=== PATIENT | male | born 1930 | race Caucasian/White ===

== ENCOUNTER 2016-09-13 15:47 | Inpatient (IN) | payer MEDICARE ==
[~2016-09-13] VITALS: Ht 193 cm; Wt 90.7 kg
[2016-09-13] VITALS (12 sets, daily range): BP systolic 115–137; BP diastolic 57–78; PULSE 80–97; RESP 18–20; TEMP 97.4–99; O2SAT 80–100
[~2016-09-13 15:47] MED LIST: ATOR40TA49 PO; NORC7.5T PO; PANT40IN3 PO; POTA20IN3 PO; RIVA10 PO; TAB-TAB PO; WALKER STANDARD
[2016-09-13] MEDS ORDERED: PANTOPRAZOLE INJ 80 MG in SODIUM CHLORIDE 0.9% INJ 35 ML IV ONE (16:15)
[2016-09-13] MEDS ORDERED: SODIUM CHLORIDE 0.9% FLUSH 10 ML FLUSH IVF PRN ×2 (16:15→18:30)
[2016-09-13 16:31] LABS: BLOOD GAS BASE EXCESS 1.7 mmol/L (-2-2); BLOOD GAS CARBOXYHEMOGLOBIN 2.7 % (0-4); BLOOD GAS HCO3 25 mmol/L (22-26); BLOOD GAS METHEMOGLOBIN 0.3 % (0-2); BLOOD GAS O2 HGB SATURATION 97 % (90-100); BLOOD GAS OXYGEN CONTENT 7.9 Vol % (12.0-20.0); BLOOD GAS PCO2 31 mmHg (38-42); BLOOD GAS PO2 117 mmHG (61-120); BLOOD GAS TOTAL HGB 5.6 G/DL (12.0-16.0); CRITICAL VALUE YES; OXYGEN DEVICE NASAL CANNULA; TEMP CORR TO 98.6
[2016-09-13 16:32] LABS: DRAW SITE LT RADIAL; LITER FLOW 2 L/M; NUMBER OF ARTERIAL PUNCTURES 1; STAT YES; ULNAR PULSE Y
--- NOTE | 2016-09-13 16:40 | RADRPT ---
EXAM DATE/TIME: 09/13/2016 16:29 [facility] COMPARISON: No previous studies available for comparison. INDICATIONS : Short of breath. MEDICAL HISTORY : Chronic obstructive pulmonary disease. SURGICAL HISTORY : CABG. Coronary artery stent. ENCOUNTER: Initial ACUITY: 1 day PAIN SCORE: 0/10 LOCATION: Bilateral chest FINDINGS: A single view of the chest demonstrates a mild patchy infiltrate in the right lower lung. Otherwise, the rest of the lungs are clear. There is mild prominence of pulmonary vasculature. Heart size is wit hin normal limits. There is evidence of previous cardiothoracic surgery.. CONCLUSION: Mild patchy infiltrate right lower lung. Mild pulmonary venous congestion. Bro Arrington MD on September 13, 2016 at 16:37 Board Certified Radiologist. This report was verified electronically.
--- NOTE | 2016-09-13 16:50 | PD ---
HPI Chief Complaint: GI Complaint Time Seen by Provider: 16:14 Travel History International Travel<30 days: No Contact w/Intl Traveler<30days: No Traveled to known affect area: No History of Present Illness HPI 85-year-old gentleman with history of COPD, who presents today with complaints of weakness and dizziness. The patient has a report of black tarry stools times several days. He denies any chest pain chest pressure. He does report shortness of breath however he has COPD and attributed it to that. Please note that when he came in via [place] he had a pale appearance that would be consistent with anemia. The patient does state that many many years ago, he did have an ulcer that was treated with Pepcid. He denies any abdominal pain. He denies any abdominal bloating. PFSH Past Medical History Hx Anticoagulant Therapy: Yes (ASPIRIN ) Asthma: Yes Atrial Fibrillation: Yes Cardiovascular Problems: Yes (CABG x3 2007; STENT x2 2012) High Cholesterol: Yes COPD: Yes Diminished Hearing: Yes ([place]) Respiratory: Yes (COPD) Tetanus Vaccination: Unknown Influenza Vaccination: Yes ?: Not Past Surgical History Cardiac Surgery: Yes (CABG x3; STENT x2) Thoracic Surgery: Yes (SPINAL FUSION) Social History Alcohol Use: No (FORMERLY OFTEN ) Tobacco Use: No Substance Use: No Allergies-Medications (Allergen,Severity, Reaction): Coded Allergies: No Known Allergies (Unverified , 01/15/16) Reported Meds & Prescriptions Reported Meds & Active Scripts Active Potassium Chloride ER 20 meq 20 Meq Tab 1 Tab PO DAILY 14 Days Multivitamin (Multivitamins) 1 Tab Tab 1 Tab PO DAILY 30 Days Lipitor 40 Mg Tab (Atorvastatin Calcium) 40 Mg Tab 40 Mg PO DAILY 30 Days Pantoprazole Sodium 40 Mg Tab 40 Mg PO DAILY 30 Days Walker Standard (Device) Device 1 Unit Xarelto 10 Mg Tab (Rivaroxaban) 10 Mg Tab 10 Mg PO DAILY Riva 7.5-325 mg (Hydrocodone-Acetaminophen 7.5-325 mg) 1 Tab 1 Tab PO Q4H PRN Review of Systems Except as stated in HPI: all other systems reviewed are Neg General / Constitutional: No: Fever, Chills Eyes: No: Blurred Vision HENT: Positive: Lightheadedness, No: Headaches Cardiovascular: No: Chest Pain or Discomfort, Palpitations Respiratory: Positive: Shortness of Breath, No: Cough, Wheezing (chronic from COPD) Gastrointestinal: Positive: Other (black tarry stools.), No: Nausea, Vomiting , Abdominal Pain Musculoskeletal: Positive: Weakness (generalized), No: Myalgias, Arthralgias, Edema, Pain Neurologic: Positive: Weakness (generalized), Dizziness, No: Headache, Change in Mentation Physical Exam Narrative GENERAL: Pale elderly ill appearing male in mild rest her discomfort SKIN: Focused skin assessment warm/dry. HEAD: Atraumatic. Normocephalic. EYES: No scleral icterus. No injection or drainage. ENT: No nasal bleeding or discharge. Mucous membranes pale and moist NECK: Trachea midline. Supple. CARDIOVASCULAR: Regular rate and rhythm. No murmur appreciated. RESPIRATORY: No accessory muscle use. Clear to auscultation. Breath sounds equal bilaterally. GASTROINTESTINAL: Abdomen soft, non-tender, nondistended. Hepatic and splenic margins not palpable. MUSCULOSKELETAL: No obvious deformities. No clubbing. No cyanosis. No edema. NEUROLOGICAL: Awake and alert. No obvious cranial nerve deficits. Motor grossly within normal limits. Normal speech. PSYCHIATRIC: Appropriate mood and affect; insight and judgment normal. Data Data Last Documented VS Vital Signs Date Time Temp Pulse Resp B/P Pulse Ox O2 Delivery O2 Flow Rate FiO2 09/13/16 16:28 96 Nasal Cannula 2.00 09/13/16 16:05 97.4 88 18 135/64 Orders Complete Blood Count With Diff (09/13/16 16:14) Comprehensive Metabolic Panel (09/13/16 16:14) Lipase (09/13/16 16:14) Prothrombin Time / Inr (Pt) (09/13/16 16:14) Act Partial Throm Time (Ptt) (09/13/16 16:14) Urinalysis - C+S If Indicated (09/13/16 16:14) Type And Screen (09/13/16 16:14) Red Blood Cells (Rbc) (09/13/16 16:14) Chest, Single Ap (09/13/16 16:14) Ecg Monitoring (09/13/16 16:14) Iv Access Insert/Monitor (09/13/16 16:14) Oximetry (09/13/16 16:14) Sodium Chloride 0.9% Flush (Ns Flush) (09/13/16 16:15) Pantoprazole Inj (Protonix Inj) (09/13/16 16:15) Electrocardiogram (09/13/16 16:14) Arterial Blood Gas (Abg) (09/13/16 16:14) Blood Product Administration .UPON TRANSFUSION (09/13/16 18:17) Sodium Chloride 0.9% Flush (Ns Flush) (09/13/16 18:30) Ckmb (Isoenzyme) Profile (09/13/16 18:27) Troponin I (09/13/16 18:27) Admit Order (Ed Use Only) (09/13/16 18:28) Labs Laboratory Tests Test 09/13/16 16:20 White Blood Count 11.7 TH/MM3 Red Blood Count 1.86 MIL/MM3 Hemoglobin 5.6 GM/DL Hematocrit 17.4 % Mean Corpuscular Volume 93.7 FL Mean Corpuscular Hemoglobin 29.9 PG Mean Corpuscular Hemoglobin 32.0 % Concent Red Cell Distribution Width 14.2 % Platelet Count 325 TH/MM3 Mean Platelet Volume 8.3 FL Neutrophils (%) (Auto) 79.4 % Lymphocytes (%) (Auto) 10.1 % Monocytes (%) (Auto) 8.2 % Eosinophils (%) (Auto) 2.2 % Basophils (%) (Auto) 0.1 % Neutrophils # (Auto) 9.2 TH/MM3 Lymphocytes # (Auto) 1.2 TH/MM3 Monocytes # (Auto) 1.0 TH/MM3 Eosinophils # (Auto) 0.3 TH/MM3 Basophils # (Auto) 0.0 TH/MM3 CBC Comment DIFF FINAL Differential Comment Prothrombin Time 13.2 SEC Prothromb Time International 1.2 RATIO Ratio Activated Partial 27.7 SEC Thromboplast Time Blood Gas Puncture Site LT RADIAL Blood Gas Patient Temperature 98.6 Blood Gas HCO3 25 mmol/L Blood Gas Base Excess 1.7 mmol/L Blood Gas Oxygen Saturation 97 % Arterial Blood pH 7.51 Arterial Blood Partial 31 mmHg Pressure CO2 Arterial Blood Partial 117 mmHG Pressure O2 Arterial Blood Oxygen Content 7.9 Vol % Arterial Blood 2.7 % Carboxyhemoglobin Arterial Blood Methemoglobin 0.3 % Blood Gas Hemoglobin 5.6 G/DL Oxygen Delivery Device NASAL CANNULA Blood Gas Liter Flow 2 L/M Sodium Level 137 MEQ/L Potassium Level 2.7 MEQ/L Chloride Level 100 MEQ/L Carbon Dioxide Level 27.6 MEQ/L Anion Gap 9 MEQ/L Blood Urea Nitrogen 28 MG/DL Creatinine 0.66 MG/DL Estimat Glomerular Filtration 115 ML/MIN Rate Random Glucose 93 MG/DL Calcium Level 8.0 MG/DL Total Bilirubin 0.6 MG/DL Aspartate Amino Transf 80 U/L (AST/SGOT) Alanine Aminotransferase 91 U/L (ALT/SGPT) Alkaline Phosphatase 94 U/L Total Protein 6.2 GM/DL Albumin 3.1 GM/DL Lipase 97 U/L Blood Type A POSITIVE Antibody Screen NEGATIVE Crossmatch Leukocyte-Reduced Red Blood Cells Blood Bank Comment MDM Medical Decision Making Medical Screen Exam Complete: Yes Emergency Medical Condition: Yes Differential Diagnosis GI bleed versus hepatitis versus metabolic derangement Narrative Course 85-year-old male with a history of COPD, presents today with complaints of weakness and shortness of breath. When the patient arrived he appeared pale. The patient has a hemoglobin of 5.6. He has heme positive stools. He is also noted to have a potassium of 2.7. Given all of these findings and what looks like ischemic changes in his V3 V5 leads, I've elected to admit him to the oil gauger service. Dr. Flower, on-call oil gauger, has good been gracious enough to come down to see the patient. Diagnosis Primary Impression: GI bleed Additional Impressions: Severe anemia Hypokalemia COPD (chronic obstructive pulmonary disease) Jose Callahan MD September 13, 2016 16:50
[2016-09-13 17:05] LABS: AUTOMATED NEUTROPHIL # 9.2 TH/MM3 (1.8-7.7); BASOPHIL % 0.1 % (0.0-2.0); EOSINOPHIL # 0.3 TH/MM3 (0-0.4); EOSINOPHIL % 2.2 % (0.0-4.0); LYMPH % 10.1 % (9.0-44.0); LYMPHOCYTE # 1.2 TH/MM3 (1.0-4.8); MEAN CELL VOLUME 93.7 FL (80.0-100.0); MEAN CORPUSCULAR HEMOGLOBIN 29.9 PG (27.0-34.0); MONO % 8.2 % (0.0-8.0); NEUT % 79.4 % (16.0-70.0); PLATELET COUNT 325 TH/MM3 (150-450); RED BLOOD COUNT 1.86 MIL/MM3 (4.50-5.90); RED CELL DISTRIBUTION WIDTH 14.2 % (11.6-17.2); WHITE BLOOD COUNT 11.7 TH/MM3 (4.0-11.0)
[2016-09-13 17:08] LABS: HEMO FLAGS DIFF FINAL
[2016-09-13 17:10] LABS: HEMATOCRIT 17.4 % (39.0-51.0)
[2016-09-13 17:20] LABS: APTT (PATIENT) 27.7 SEC (24.3-30.1); INTERNATIONAL NORMALIZED RATIO 1.2 RATIO; PROTHROMBIN TIME - PATIENT 13.2 SEC (9.8-11.6)
[2016-09-13 17:28] LABS: ALKALINE PHOSPHATASE 94 U/L (45-117); ALT (GPT) 91 U/L (12-78); ANION GAP 9 MEQ/L (5-15); AST (GOT) 80 U/L (15-37); BICARBONATE 27.6 MEQ/L (21.0-32.0); BLOOD UREA NITROGEN 28 MG/DL (7-18); CHLORIDE 100 MEQ/L (98-107); GLOMERULAR FILTRATION RATE 115 ML/MIN (>89); SODIUM (NA) 137 MEQ/L (136-145); TOTAL BILIRUBIN ADULT 0.6 MG/DL (0.2-1.0)
[2016-09-13 17:38] LABS: POTASSIUM 2.7 MEQ/L (3.5-5.1)
[2016-09-13 19:02] LABS: CREATINE KINASE 113 U/L (39-308)
[2016-09-13 19:05] LABS: BLOOD, URINE NEG (NEG); COMMENT (UR) CULT NOT INDICATED; CULTURE IF INDICATED CULT NOT INDICATED; GLUCOSE,URINE NEG (NEG); KETONE, URINE NEG (NEG); NITRITE,URINE NEG (NEG); URINE COLOR YELLOW (YELLW/STRAW)
[2016-09-13] MEDS ORDERED: METOCLOPRAMIDE HCL 10 MG/2 ML VIAL IV PRN (19:15)
[2016-09-13] MEDS ORDERED: SODIUM CHLORIDE 0.9% FLUSH 10 ML FLUSH PRN (19:15)
[2016-09-13] MEDS ORDERED: MORPHINE SULFATE 4 MG/ML INJ IV PRN (19:15)
[2016-09-13] MEDS ORDERED: CHLORHEXIDINE GLUCONATE 2 % 1 PACK (2 CLOTHS) TOP PRN (19:15)
[2016-09-13] MEDS ORDERED: MISCELLANEOUS NURSING INFORMATION XX SCH (19:15)
[2016-09-13] MEDS ORDERED: ACETAMINOPHEN 325 MG TAB PO PRN (19:15)
[2016-09-13] MEDS ORDERED: ASPI1TAB69 PO (19:23)
[2016-09-13] MEDS ORDERED: SERT-129 PO (19:23)
[2016-09-13] MEDS ORDERED: MULT1CHW70 (19:23)
[2016-09-13] MEDS ORDERED: ATOR40TA16 PO (19:23)
[2016-09-13] MEDS ORDERED: [UNRECOGNIZED DRUG - CODE] (19:23)
[2016-09-13] MEDS ORDERED: GLUC1CAP16 (19:23)
[2016-09-13] MEDS ORDERED: IPRA1POW8 (19:23)
[2016-09-13] MEDS ORDERED: GINK30CA (19:23)
[2016-09-13 19:31] LABS: CKMB 2.4 NG/ML (0.5-3.6)
[2016-09-13] MEDS: SODIUM CHLORIDE 0.9% FLUSH 10 ML FLUSH SCH (21:04)
[2016-09-13] MEDS: PANTOPRAZOLE SODIUM 40 MG VIAL IV SCH (21:04)
[2016-09-13] MEDS: SODIUM CHLOR 0.9% 1000 ML INJ 1,000 ML IV SCH (21:05)
[2016-09-14] VITALS (24 sets, daily range): BP systolic 118–139; BP diastolic 58–68; PULSE 82–96; RESP 18–38; TEMP 97.6–98.7; O2SAT 95–100
[2016-09-14 00:04] LABS: REVIEW FLAG FINAL
[2016-09-14 00:08] LABS: HEMATOCRIT 19.7 % (39.0-51.0)
--- NOTE | 2016-09-14 00:45 | HHI.HP ---
HPI Service Critical Care Medicine, this note is for service provided on September 13, 2016 Primary Care Physician Moisés Sampson M.D. Admission Diagnosis GI BLEED, Anemia, hypokalemia, Diagnosis: Travel History International Travel<30 Days: No Contact w/Intl Traveler <30 Da: No Traveled to Known Affected Are: No History of Present Illness 85-year-old gentleman with history of COPD, quit smoking more than 30 years ago now presents with complaints of weakness and dizziness. The patient reports of black tarry stools times several days. He denies any chest pain chest pressure. He does admits some shortness of breath however he has a history of COPD and attributed it to that. Per patient many years ago, he did have an ulcer that was treated with Pepcid. He denies any abdominal pain. He denies any abdominal bloating. Review of Systems Constitutional: COMPLAINS OF: Fatigue, Dizziness, DENIES: Diaphoretic episodes , Fever, Weight gain, Weight loss, Chills, Change in appetite, Night Sweats Endocrine: DENIES: Heat/cold intolerance, Polydipsia, Polyuria, Polyphagia Eyes: DENIES: Blurred vision, Diplopia, Eye inflammation, Eye pain, Vision loss , Photosensitivity, Double Vision Ears, nose, mouth, throat: DENIES: Tinnitus, Hearing loss, Vertigo, Nasal discharge, Oral lesions, Throat pain, Hoarseness, Ear Pain, Running Nose, Epistaxis, Sinus Pain, Toothache, Odynophagia Respiratory: DENIES: Apneas, Cough, Snoring, Wheezing, Hemoptysis, Sputum production, Shortness of breath Cardiovascular: DENIES: Chest pain, Palpitations, Syncope, Dyspnea on Exertion , PND, Lower Extremity Edema, Orthopnea, Claudication Gastrointestinal: DENIES: Abdominal pain, Black stools, Bloody stools, Constipation, Diarrhea, Nausea, Vomiting, Difficulty Swallowing, Anorexia Genitourinary: DENIES: Sexual dysfunction, Urinary frequency, Urinary incontinence, Urgency, Hematuria, Dysuria, Nocturia, Penile Discharge, Testicular Pain, Testicular Swelling Musculoskeletal: DENIES: Joint pain, Muscle aches, Stiffness, Joint Swelling, Back pain, Neck pain Integumentary: DENIES: Abnormal pigmentation, Nail changes, Pruritus, Rash Hematologic/lymphatic: DENIES: Bruising, Lymphadenopathy Immunologic/allergic: DENIES: Eczema, Urticaria Neurologic: DENIES: Abnormal gait, Headache, Localized weakness, Paresthesias, Seizures, Speech Problems, Tremor, Poor Balance Psychiatric: DENIES: Anxiety, Confusion, Mood changes, Depression, Hallucinations, Agitation, Suicidal Ideation, Homicidal Ideation, Delusions Past Family Social History Allergies: Coded Allergies: No Known Allergies (Unverified , 01/15/16) Past Medical History COPD CAD Past Surgical History Left Hip Surgery Reported Medications Reported Meds & Active Scripts Active Reported Multivitamin Adult (Multiple Vitamins W/ Minerals) 1 Chw Chw Ipratropium [place] 1 Pow Pow Psyllium Husk (Psyllium Hydrophilic Mucilloid) 100 % Pow Glucosamine Chondroitin (Gilfuhtgtmv-Bdxgogucygj-Vhk C-) 1 Cap Cap Ginkgo Biloba 30 Mg Cap Sertraline (Sertraline HCl) 100 Mg Tab 100 Mg PO DAILY Atorvastatin (Atorvastatin Calcium) 40 Mg Tab 40 Mg PO HS Aspirin 81 Mg Tabdr 81 Mg PO DAILY Active Ordered Medications Current Medications Medications (Trade) Dose Ordered Sig/[place] Route PRN Reason Start Time Stop Time Status Last Admin Dose Admin Sodium Chloride (NS 1000 ml Inj) 1,000 ml @ 125 mls/hr Q8H IV 09/13/16 19:00 09/13/16 21:05 Sodium Chloride (NS Flush) 2 ml UNSCH PRN .XX FLUSH AFTER USING IV ACCESS 09/13/16 19:15 Sodium Chloride (NS Flush) 2 ml BID .XX 09/13/16 21:00 09/13/16 21:04 Acetaminophen (Tylenol) 650 mg Q6H PRN PO PAIN 1-10 AND/OR FEVER >101F 09/13/16 19:15 09/13/16 21:06 Morphine Sulfate (Morphine Inj) 2 mg Q2H PRN IV PAIN SCALE 6 TO 10 09/13/16 19:15 Pantoprazole Sodium (Protonix Inj) 40 mg Q12H IV 09/13/16 20:00 09/13/16 21:04 Ondansetron HCl (Zofran Inj) 4 mg Q6H PRN IV NAUSEA OR VOMITING 09/13/16 19:15 Metoclopramide HCl (Reglan Inj) 10 mg Q6H PRN IV NAUSEA OR VOMITING 09/13/16 19:15 Temazepam (Restoril) 15 mg HS PRN PO INSOMNIA 09/13/16 19:15 Miscellaneous Information 1 [id number] XX 09/13/16 19:15 Chlorhexidine Gluconate (Chlorhexidine 2% Cloth) 3 pack Taper DAILY@04 TOP 09/14/16 04:00 09/10/17 03:59 Chlorhexidine Gluconate (Chlorhexidine 2% Cloth) 3 pack UNSCH PRN TOP HYGIENIC CARE 09/13/16 19:15 Family History Noncontributory Social History Quit smoking more than 30 years ago No history of alcohol or illicit drug abuse Physical Exam Vital Signs Vital Signs Date Time Temp Pulse Resp B/P Pulse Ox O2 Delivery O2 Flow Rate FiO2 09/13/16 22:06 22 09/13/16 22:00 99.0 84 18 132/60 100 09/13/16 21:00 98.4 86 20 137/65 100 09/13/16 20:02 98.6 87 20 119/57 98 09/13/16 20:00 86 09/13/16 19:40 99.0 95 18 115/78 99 09/13/16 19:00 98.9 80 18 130/64 100 Room Air 09/13/16 18:45 98.8 88 18 123/58 96 Room Air 09/13/16 16:28 96 Nasal Cannula 2.00 09/13/16 16:25 100 Room Air 09/13/16 16:05 97.4 88 18 135/64 80 Room Air 09/13/16 16:05 18 09/13/16 15:57 97.4 97 18 135/64 Laboratory Laboratory Tests Test 09/13/16 09/13/16 09/13/16 09/14/16 16:20 18:30 23:51 00:19 White Blood Count 11.7 Red Blood Count 1.86 Hemoglobin 5.6 6.9 Hematocrit 17.4 19.7 Mean Corpuscular Volume 93.7 Mean Corpuscular Hemoglobin 29.9 Mean Corpuscular Hemoglobin 32.0 Concent Red Cell Distribution Width 14.2 Platelet Count 325 Mean Platelet Volume 8.3 Neutrophils (%) (Auto) 79.4 Lymphocytes (%) (Auto) 10.1 Monocytes (%) (Auto) 8.2 Eosinophils (%) (Auto) 2.2 Basophils (%) (Auto) 0.1 Neutrophils # (Auto) 9.2 Lymphocytes # (Auto) 1.2 Monocytes # (Auto) 1.0 Eosinophils # (Auto) 0.3 Basophils # (Auto) 0.0 CBC Comment DIFF FINAL Differential Comment Prothrombin Time 13.2 Prothromb Time International 1.2 Ratio Activated Partial 27.7 Thromboplast Time Blood Gas Puncture Site LT RADIAL Blood Gas Patient Temperature 98.6 Blood Gas HCO3 25 Blood Gas Base Excess 1.7 Blood Gas Oxygen Saturation 97 Arterial Blood pH 7.51 Arterial Blood Partial 31 Pressure CO2 Arterial Blood Partial 117 Pressure O2 Arterial Blood Oxygen Content 7.9 Arterial Blood 2.7 Carboxyhemoglobin Arterial Blood Methemoglobin 0.3 Blood Gas Hemoglobin 5.6 Oxygen Delivery Device NASAL CANNULA Blood Gas Liter Flow 2 Sodium Level 137 Potassium Level 2.7 Chloride Level 100 Carbon Dioxide Level 27.6 Anion Gap 9 Blood Urea Nitrogen 28 Creatinine 0.66 Estimat Glomerular Filtration 115 Rate Random Glucose 93 Calcium Level 8.0 Total Bilirubin 0.6 Aspartate Amino Transf 80 (AST/SGOT) Alanine Aminotransferase 91 (ALT/SGPT) Alkaline Phosphatase 94 Total Creatine Kinase 113 Creatine Kinase MB 2.4 Troponin I 2.87 Total Protein 6.2 Albumin 3.1 Lipase 97 Blood Type A POSITIVE A POSITIVE Antibody Screen NEGATIVE Crossmatch Leukocyte-Reduced Leukocyte-Reduced Red Blood Red Blood Cells Cells Blood Bank Comment Urine Color YELLOW Urine Turbidity CLEAR Urine pH 6.0 Urine Specific [place] 1.023 Urine Protein TRACE Urine Glucose (UA) NEG Urine Ketones NEG Urine Occult Blood NEG Urine Nitrite NEG Urine Bilirubin NEG Urine Urobilinogen 2.0 Urine Leukocyte Esterase NEG Urine RBC LESS THAN 1 Urine WBC 1 Microscopic Urinalysis Comment CULT NOT INDICATED Result Diagram: 09/13/16 2351 09/13/16 1620 Imaging GENERAL: Well-nourished, well-developed patient, pale gentleman, in no acute distress SKIN: Warm and dry. HEAD: Normocephalic. EYES: No scleral icterus. No injection or drainage. NECK: Supple, trachea midline. No JVD or lymphadenopathy. CARDIOVASCULAR: Regular rate and rhythm without murmurs, gallops, or rubs. RESPIRATORY: Breath sounds equal bilaterally. No accessory muscle use. GASTROINTESTINAL: Abdomen soft, non-tender, nondistended. MUSCULOSKELETAL: No cyanosis, or edema. BACK: Nontender without obvious deformity. No CVA tenderness. EXTREMITIES: No clubbing cyanosis or edema Assessment and Plan Assessment and Plan Anemia - Post hemorrhagic - Most likely GI bleed - Admit to ICU - Transfuse PRBC to keep hemoglobin close to 8 - Serial H&H GI bleed - History of peptic ulcer - Protonix IV twice a day - GI consult Coronary artery disease - No history of chest pain - Nonspecific ST depressions on EKG - Probably Due to severe anemia - Monitor EKGs and troponins - No intervention indicated at this time DVT GI prophylaxis - Teds SCDs - No chemical DVT prophylaxis due to GI bleed - IV Protonix Critical Care: The total critical care time was 35 minutes. Time to perform other separately billable procedures was not included in the critical care time. Anselmo Flower MD September 14, 2016 00:44
[2016-09-14] MEDS: SODIUM CHLOR 0.9% 1000 ML INJ 1,000 ML IV SCH (03:39)
[2016-09-14] MEDS: CHLORHEXIDINE GLUCONATE 2 % 1 PACK (2 CLOTHS) TOP SCH (03:40)
[2016-09-14] MEDS ORDERED: DEXTROSE 50% IN WATER 50 ML VIAL(D50) IV PUSH PRN (08:00)
[2016-09-14] MEDS ORDERED: GLUCAGON 1 MG/ML VIAL OTHER PRN (08:00)
[2016-09-14] MEDS: INSULIN NovoLIN REGULAR SUPPLEMENTAL SCALE SQ SCH ×3 (08:00→20:00)
[2016-09-14] MEDS: PANTOPRAZOLE SODIUM 40 MG VIAL IV SCH ×2 (08:07→21:12)
[2016-09-14] MEDS: SODIUM CHLORIDE 0.9% FLUSH 10 ML FLUSH SCH ×2 (08:08→21:00)
[2016-09-14] MEDS: DEXT 5%-NACL 0.9% 1000 ML INJ 1,000 ML IV SCH ×2 (08:12→21:12)
[2016-09-14] MEDS ORDERED: POTASSIUM CHLOR 20 MEQ PREMIX 100 ML IV PRN (08:15)
[2016-09-14] MEDS ORDERED: POTASSIUM CHLORIDE 25 MEQ EFFERVESCENT TAB PO PRN (08:15)
[2016-09-14] MEDS ORDERED: MAGNESIUM SULFATE INJ 4 GM in SODIUM CHLORIDE 0.9% INJ 92 ML IV PRN (08:15)
[2016-09-14] MEDS ORDERED: MAGNESIUM OXIDE 400 MG TAB PO PRN (08:15)
[2016-09-14] MEDS ORDERED: POTASSIUM PHOSPHATE MONOBASIC 500 MG TAB PO PRN (08:15)
[2016-09-14] MEDS ORDERED: SODIUM PHOSPHATE INJ 30 MMOL in SODIUM CHLOR 0.9% 250 ML INJ 240 ML IV PRN (08:15)
[2016-09-14] MEDS ORDERED: POTASSIUM PHOSPHATE MONOBASIC 500 MG TAB PO/TUBE PRN (08:15)
[2016-09-14] MEDS ORDERED: POTASSIUM CHLOR 40 MEQ PREMIX 100 ML IV PRN ×2 (08:15)
[2016-09-14] MEDS ORDERED: MAGNESIUM SULFATE INJ 2 GM in SODIUM CHLORIDE 0.9% INJ 96 ML IV PRN (08:15)
[2016-09-14 08:52] LABS: AUTOMATED NEUTROPHIL # 10.3 TH/MM3 (1.8-7.7); BASOPHIL % 0.2 % (0.0-2.0); EOSINOPHIL # 0.1 TH/MM3 (0-0.4); EOSINOPHIL % 1.1 % (0.0-4.0); HEMATOCRIT 27.2 % (39.0-51.0); HEMO FLAGS DIFF FINAL; LYMPH % 5.3 % (9.0-44.0); LYMPHOCYTE # 0.6 TH/MM3 (1.0-4.8); MEAN CELL VOLUME 86.9 FL (80.0-100.0); MEAN CORPUSCULAR HGB CONC 34.5 % (32.0-36.0); MONO % 6.8 % (0.0-8.0); NEUT % 86.6 % (16.0-70.0); PLATELET COUNT 298 TH/MM3 (150-450); RED BLOOD COUNT 3.12 MIL/MM3 (4.50-5.90); RED CELL DISTRIBUTION WIDTH 14.6 % (11.6-17.2); WHITE BLOOD COUNT 11.9 TH/MM3 (4.0-11.0)
[2016-09-14 09:08] LABS: ANION GAP 7 MEQ/L (5-15); AST (GOT) 74 U/L (15-37); BICARBONATE 29.6 MEQ/L (21.0-32.0); BLOOD UREA NITROGEN 18 MG/DL (7-18); CHLORIDE 102 MEQ/L (98-107); GLOMERULAR FILTRATION RATE 133 ML/MIN (>89); MAGNESIUM 2.1 MG/DL (1.5-2.5); SODIUM (NA) 139 MEQ/L (136-145)
[2016-09-14 09:13] LABS: ALKALINE PHOSPHATASE 80 U/L (45-117); ALT (GPT) 96 U/L (12-78); TOTAL BILIRUBIN ADULT 1.7 MG/DL (0.2-1.0)
[2016-09-14] MEDS: POTASSIUM CHLOR 20 MEQ PREMIX 100 ML IV PRN ×4 (09:16→16:14)
[2016-09-14] MEDS: RESP: ALBUTEROL 2.5 MG/IPRATROPIUM 0.5 MG NEB (PRN) INH ×2 (09:27→16:35)
--- NOTE | 2016-09-14 10:42 | PD.CONS ---
GI Consult GI Consult SEE FORMAL gi CONSULTATION DICTATED TODAY ALSO ([id number]) Imp: 1.Melena 2. Anemia 3. abnormal LFT 4. Elevated troponin PLAN: 1. Cont PPI 2. awaiting U/S results 3. EGD (if negative--colonoscopy). awaiting cardiac clearance. Pt hesitant re procedures. Risk of procedures were discussed 4. Dr. Gipson will see pt 09/15 It was a pleasure seeing Jaydon Velazquez Thank you for this consult. Entered by: Augustine Jones MD September 14, 2016 10:42
[2016-09-14 11:10] LABS: HEMATOCRIT 28.2 % (39.0-51.0); REVIEW FLAG FINAL
--- NOTE | 2016-09-14 12:20 | RADRPT ---
EXAM DATE/TIME: 09/14/2016 10:20 [facility] COMPARISON: No previous studies available for comparison. INDICATIONS : Elevated labs. MEDICAL HISTORY : Hypercholesterolemia. COPD. Asthma. A-fib. SURGICAL HISTORY : CABG. Cardiac stents. Spinal fusion. ENCOUNTER: Initial ACUITY: 1 day PAIN SCORE: 2/10 LOCATION: Bilateral upper quadrant MEASUREMENTS: LIVER: 17.3 cm length COMMON DUCT: 2 mm RIGHT KIDNEY: 12.0 x 6.0 x 6.0 cm SPLEEN: 10.3 cm length FINDINGS: LIVER: Normal echotexture without focal lesion or ductal dilatation. The left lobe is not well-visualized du e to body habitus and overlying bowel gas. This COMMON DUCT: No intraluminal mass or stone visualized. GALLBLADDER: The gallbladder is mildly distended. There is no gallbladder wall thickening. There are multiple ston es evident within the dependent portion of the gallbladder. PANCREAS: The visualized portions are within normal limits. RIGHT KIDNEY: No hydronephrosis, stone or mass. SPLEEN: No focal lesion. CONCLUSION: 1. The gallbladder is distended with multiple stones. No gallbladder wall thickening or pericholecyst ic fluid is evident. 2. The pancreas and left lobe of the liver were not well visualized due to body habitus. 3. Small right pleural effusion. Johnson Betancourt MD on September 14, 2016 at 12:16 Board Certified Radiologist. This report was verified electronically.
--- NOTE | 2016-09-14 12:38 | MB ---
cc: AUGUSTINE COLE M.D. DATE OF CONSULTATION: 09/14/2016 DATE OF : 1930 REFERRING PHYSICIAN: Dr. Flower REASON FOR CONSULTATION: I have been asked to see the patient at the request of Dr. Flower for the evaluation of melena and severe anemia. HISTORY OF PRESENT ILLNESS: The patient is a pleasant 85-year white male who has seen the office. About a year ago he had an upper endoscopy for nausea and vomiting and heartburn-- revealed gastritis, intestinal metaplasia of the stomach. Hishey had aletred bowel habits but the altered bowel habits did resolved and we talked with colonoscopy but he declined it. At that time a gastritic emptying scan came back negative and a CT scan showed colonic diverticulosis, constipation, asymptomatic gallstones, degenerative disc disease and bronchiectasis- he followed up with primary care doctor in that regard, since that time the patient has not followed up with us. Apparently, he presented yesterday to the hospital very weak and tired and dizzy. He had black stools for several days. He denies any abdominal pain or hematochezia. He says he may have vomited food, but he does not recall any blood in the vomitus. He does take aspirin but no NSAIDs. He was taking the Pepcid but no proton pump inhibitors. PAST MEDICAL HISTORY: 1. Asthma. 2. Chronic obstructive pulmonary disease. 3. Atrial fibrillation. 4. Coronary artery disease, cardiac stenting and bypass surgery. 5. Dyslipidemia 6. Decreased hearing 7. Gastritis. 8. Sleep apnea. 9. Dementia. 10. Constipation. 11. Dyslipidemia. 12. Bronchiectasis. 13. Gastroesophageal reflux disease. 14. Nausea and vomiting. 15. Anxiety. 16. Hard of hearing. 17. Gallstones. 18. Chronic diverticulosis. 19. Degenerative disc disease. PAST SURGICAL HISTORY: 1. History of spinal fusion. 2. Cardiac stent. 3. Coronary artery bypass grafting times three. 4. Lumbar laminectomy. 5. Fractured femur. 6. Coronary angioplasty 7. Teeth removal. FAMILY HISTORY: Her family is not significant for colon cancer, colon polyps. HABITS: She does not currently smoke or drink. She did drink in the past. ALLERGIES DENIES ANY ALLERGIES TO ME. REVIEW OF SYSTEMS No weight loss. CARDIOPULMONARY: No chest pain, palpitations, shortness of breath at this time. GASTROINTESTINAL: Please see above. Otherwise unremarkable ten-point of systems, patient is hard of hearing. MEDICATION Outpatient 1. Potassium. 2. Multivitamin. 3. Lipitor. 4. Pepcid (there is some question about. 5. Pantoprazole but denied to me). 6. [place] 7. Xarelto (per ER records-patients denies this) INPATIENT MEDICATIONS 1. Potassium 2. Magnesium sulfate. 3. Magnesium. 4. Glucagon. 5. Insulin. 6. Pantoprazole drip. 7. Morphine. 8. Zofran. 9. Reglan. PHYSICAL EXAMINATION: VITAL SIGNS: Blood pressure is 124/64, pulse 82, respiratory rate 30. Temperature 98.2. IN GENERAL: Elderly white male who remembered me as I walked through the door. He is alert and oriented times three. HEAD, EYES, EARS, NOSE, AND THROAT: His pupils are react light. No obvious scleral icterus. oropharynx had dental caries no tongue deviation . Hearing was diminished. NECK: The neck was supple no thyroid lymphadenopathy. LUNGS: Clear to auscultation. HEART: Irregular rhythm, no murmurs heard. ABDOMEN: The abdomen is soft, nondistended, nontender, no organomegaly, no masses or ascites, her hernias. Ultrasound is being done at this time of the abdomen. EXTREMITIES: No clubbing, cyanosis or edema. NEUROLOGIC: Her grossly intact. No gross motor deficits. RECTUM: Rectal examination was not done. I did not assess the gait. DATA BASE: Prothrombin time of 13.2, INR 1.2, PTT 27.7. Potassium 2.7 yesterday, today it is 3.7, also yesterday his total bilirubin 0.6, SGOT 80, SGPT 91, alkaline phosphatase 94, today the total bilirubin is 1.7. SGOT 74, SGPT of 96, alk phos of 80. Troponin elevated to 2.85, 2.87 and as well as 2.53. CPKs 1113 which is normal, total protein 6.0, albumin 2.9, lipase of 97 is normal. BUN of 28, yesterday creatinine 0.66 today 18 and 0.58 respectively. Hemoglobin was 5.6 on admission, hematocrit of 17.4, MCV 92.7, White blood cell count 11,700. The platelet count 325,000. Next hemoglobin on record was 6.9, and 19.7 and after blood hemoglobin today is 9.4, hematocrit of 27.2. There is no black stools today. IMPRESSION 1. Melena - the patient was taking aspirin I suspect this is related to peptic ulcer. Cannot rule out malignancies or AVM anywhere throughout the gastrointestinal tract. Right sided lesions can present this way (colon) same way. 2. The patient has severe anemia, more then likely an acute blood loss anemia that is better now due to transfusions. He has not had any more black stools. 3. Possible nausea, vomiting, that is unconfirmed, there is no blood in the vomitus. 4. Increased LFTs - does have known gallstones. There is no tenderness at this time. 5. Elevated troponin level, cardiac evaluation has been ordered. RECOMMENDATIONS 1. Continue proton pump inhibitor. 2. Await ultrasound results. 3. The patient ultimately could use an upper endoscopy, and had negative colonoscopy. He is hesitant about a colonoscopy and he is actually hesitant about an upper endoscopy but is willing to think about it at this time. Either way the patient needs to be cleared first from the cardiac standpoint to have any of these procedures done. We did talk indications, risks, complications, benefits, limitations and alternatives-he understands the risks of bleeding, infection,perforation and the small possibly of . His is, has come in and I will talk to his in more detail also. The plan was considered to do an upper endoscopy first once cleared by cardiology. 4. Dr. Gipson to see the patient tomorrow to make further recommendations. Augustine Cole MD SP/rama /10:32 AM /12:33 PM PATRICIA
[2016-09-14 15:45] LABS: HEMATOCRIT 27.4 % (39.0-51.0); REVIEW FLAG FINAL
--- NOTE | 2016-09-14 15:58 | EKG ---
Date Performed: 09/13/2016 Time Performed: 16:18:25 PTAGE: 85 years EKG: Sinus rhythm NONSPECIFIC ST & T-WAVE ABNORMALITY Compared to the previous tracing nonspecific ST changes are slig htly more prominent BORDERLINE ECG PREVIOUS TRACING : 01/15/16 DOCTOR: Maged Reyes Interpretating Date/Time 09/14/2016 15:56:01
--- NOTE | 2016-09-14 16:00 | EKG ---
Date Performed: 09/14/2016 Time Performed: 05:57:40 PTAGE: 85 years EKG: Sinus rhythm with first degree AV block Extensive ST-T changes are nonspecific Compared to prior tracing no signi ficant change Abnormal ECG PREVIOUS TRACING : 09/13/16 DOCTOR: Maged Reyes Interpretating Date/Time 09/14/2016 15:58:44
--- NOTE | 2016-09-14 16:00 | EKG ---
Date Performed: 09/14/2016 Time Performed: 07:19:06 PTAGE: 85 years EKG: Sinus rhythm with first degree AV block VENTRICULAR PREMATURE COMPLEXES NONSPECIFIC ST & T-WAVE ABNORMALITY ABNOR MAL RHYTHM ECG Compared to the PREVIOUS TRACING rhythm now appears most likely sinus with first degree AV block and ect opy but there remains an element of baseline artifact. Would recommend an attempt at repeat ekg perha ps with a rhythm strip to exclude atrial fibrillation PREVIOUS TRACIN09/13/2016 20.42 DOCTOR: Maged Reyes Interpretating Date/Time 09/14/2016 15:59:57
--- NOTE | 2016-09-14 16:00 | EKG ---
Date Performed: 09/13/2016 Time Performed: 20:42:02 PTAGE: 85 years EKG: Sinus rhythm with first degree AV block and PACs NONSPECIFIC ST & T-WAVE ABNORMALITY Compared to the previous tra cing rhythm still appear to be sinus however the first degree AV block and PACs with some baseline ar tifact make it difficult to completely exclude atrial fibrillation. Would recommend repeat ekg. ABNOR MAL RHYTHM ECG PREVIOUS TRACING : 09/13/2016 16.18 DOCTOR: Maged Reyes Interpretating Date/Time 09/14/2016 15:58:13
--- NOTE | 2016-09-14 17:45 | MB ---
cc: LEE BOWER MD DATE OF CONSULTATION: 09/14/2016 REASON FOR CONSULTATION: Elevated troponin. HISTORY OF PRESENT ILLNESS Mr. Velazquez is a 85-year-old, patient of my partner Dr. Reyes. He does have her man with history of coronary artery bypass graft in 2007 with a left internal mammary artery to left anterior descending, saphenous vein graft to Obtuse marginal and Y to obtuse marginal 2. He subsequently underwent stenting in May 2012 with a drug-eluting stent to his distal left anterior descending and right coronary artery. The patient has been well from a cardiac perspective since then. He denies any cardiac complaints such as chest pain or shortness of breath. The patient presented with GI bleed and cardiology was requested to see him as his troponins were elevated. PAST MEDICAL HISTORY: Significant for Coronary artery bypass graft. Chronic obstructive pulmonary disease. Left hip surgery. Hyperlipidemia. OUTPATIENT MEDICATIONS medications included 1. Aspirin. 2. Atorvastatin. 3. Sertraline 4. Ginkgo biloba 5. Glucosamine 6. <<2:07>> bromide. 7. Multivitamin. SOCIAL HISTORY The patient is a former smoker. FAMILY HISTORY Noncontributory REVIEW OF SYSTEMS He is moved to with the patient does have some weakness, dizziness and black tarry stools, Other then this all 12 systems are negative. PHYSICAL EXAMINATION VITAL SIGNS: 88, 20, 128/64. IN GENERAL: He is a thin elderly man who is in no apparent distress. NECK: His neck is free from jugular venous distention. LUNGS: The lungs are bilaterally clear to auscultation. CARDIOVASCULAR SYSTEM: He had a normal S1, S2 and he has a 2/6 systolic murmur, no rubs or gallops are appreciated. ABDOMEN: The abdomen is soft. EXTREMITIES: The extremities are free from edema. LABORATORY FINDINGS: His initial hemoglobin was 5.6, currently it is 5.6. Currently it is 9.4. His initial sodium was 2.7 and currently it is 3.0. Serial troponins are 2487 and 2.53 with a total CK of 1138. EKG does show an intermittent atrial fibrillation. IMPRESSION 1. Non-ST elevation PR - this is almost certainly secondary PR with his profound anemia and hypokalemia. The patient does have an echo which is currently pending. He should be treated aggressively for his GI bleed. 2. History of CAD - the patient does appear reasonably stable at again echocardiogram is pending. At this point I would hold off on his aspirin and beta-blockade secondary to his gastrointestinal bleed. 3. GI bleed, it is very reasonable from a CV perspective to go forward with a Esophagogastroduodenoscopy and/or colonoscopy as appropriate for a GI. 4. I will be available on a p.r.n. basis and BNP seem should any further questions arise. Lee Bower M.D. MARIA GUADALUPE/rama /3:02 PM /4:25 PM
[2016-09-14 18:35] LABS: HEMATOCRIT 29.4 % (39.0-51.0); REVIEW FLAG FINAL
--- NOTE | 2016-09-14 19:03 | EC ---
Study Study Date:09/14/2016 STUDY CONCLUSIONS SUMMARY - Left ventricle: The cavity size was normal. Wall thickness was at the upper limits of normal. Systolic function was mildly to moderately reduced. The estimated ejection fraction was in the range of 40% to 45%. Diffuse hypokinesis. - Mitral valve: Mild regurgitation. - Left atrium: The atrium was mildly dilated. - Tricuspid valve: Mild regurgitation. If LV function is below 40, please consider prescribing an ACEI or ARB or document rationale for non-use. PROCEDURE DATA STUDY STATUS: Elective. Procedure: Transthoracic echocardiography. Image quality was good. Scanning was performed from the parasternal, apical, and subcostal acoustic windows. Study completion: The patient tolerated the procedure well. Transthoracic echocardiography. M-mode, complete 2D, complete spectral Doppler, and color Doppler. Patient status: Inpatient. CARDIAC ANATOMY LEFT VENTRICLE: The cavity size was normal. Wall thickness was at the upper limits of normal. Systolic function was mildly to moderately reduced. The estimated ejection fraction was in the range of 40% to 45%. Diffuse hypokinesis. AORTIC VALVE: Trileaflet; normal thickness leaflets. Doppler: Transvalvular velocity was within the normal range. There was no stenosis. No regurgitation. AORTA: Aortic root: The aortic root was normal in size. MITRAL VALVE: Structurally normal valve. Doppler: Transvalvular velocity was within the normal range. There was no evidence for stenosis. Mild regurgitation. LEFT ATRIUM: The atrium was mildly dilated. RIGHT VENTRICLE: The cavity size was normal. Wall thickness was normal. PULMONIC VALVE: Doppler: Transvalvular velocity was within the normal range. There was no evidence for stenosis. No regurgitation. TRICUSPID VALVE: Structurally normal valve. Doppler: Transvalvular velocity was within the normal range. Mild regurgitation. PULMONARY ARTERY: The main pulmonary artery was normal-sized. Systolic pressure was within the normal range. RIGHT ATRIUM: The atrium was normal in size. PERICARDIUM: There was no pericardial effusion. SYSTEMIC VEINS: Inferior vena cava: The vessel was normal in size. BASIC MEASUREMENTS ADULT NORMAL Left ventricle LV internal dimension, ED, chordal level, 50.5 mm 43-52 PLAX LV internal dimension, ES, chordal level, *42.9 mm 23-38 PLAX Fractional shortening, chordal level, PLAX *15 % >29 LV posterior wall thickness, ED 12.6 mm IVS/LVPW ratio, ED 0.89 <1.3 Ventricular septum Septal thickness, ED 11.2 mm Aortic valve Leaflet separation 17 mm 15-26 Right ventricle RV internal dimension, ED, PLAX 33.9 mm 19-38 BASIC MEASUREMENTS ADULT NORMAL Aortic valve Leaflet separation 17 mm 15-26 Aorta Root diameter, ED 36 mm 20-37 Left atrium Anterior-posterior dimension, ES *45 mm 19-40 LA/aortic root ratio 1.25 DOPPLER MEASUREMENTS ADULT NORMAL Mitral valve Peak E-wave velocity 70.1 cm/s Peak A-wave velocity 44.9 cm/s Peak E/A ratio 1.6 LEGEND: Mean values are shown as u=mean value. Asterisk (*) brower values outside specified normal range. Prepared and signed by Sarina Zaman [id number]
[2016-09-14] MEDS: TEMAZEPAM 15 MG CAP PO PRN (21:12)
[2016-09-14 22:55] LABS: HEMATOCRIT 27.6 % (39.0-51.0); REVIEW FLAG FINAL
[2016-09-15] VITALS (16 sets, daily range): BP systolic 115–152; BP diastolic 57–83; PULSE 81–106; RESP 25–48; TEMP 96.9–97.7; O2SAT 92–99
[2016-09-15] MEDS: INSULIN NovoLIN REGULAR SUPPLEMENTAL SCALE SQ SCH ×4 (02:00→20:00)
[2016-09-15] MEDS: CHLORHEXIDINE GLUCONATE 2 % 1 PACK (2 CLOTHS) TOP SCH ×2 (04:00→23:32)
[2016-09-15] MEDS: ONDANSETRON HCL 4 MG/2 ML VIAL IV PRN (05:04)
[2016-09-15 05:08] LABS: AUTOMATED NEUTROPHIL # 10.6 TH/MM3 (1.8-7.7); BASOPHIL % 0.3 % (0.0-2.0); EOSINOPHIL % 0.2 % (0.0-4.0); HEMATOCRIT 29.2 % (39.0-51.0); HEMO FLAGS DIFF FINAL; LYMPH % 4.5 % (9.0-44.0); LYMPHOCYTE # 0.5 TH/MM3 (1.0-4.8); MEAN CELL VOLUME 88.5 FL (80.0-100.0); MEAN CORPUSCULAR HGB CONC 32.8 % (32.0-36.0); MONO % 7.4 % (0.0-8.0); NEUT % 87.6 % (16.0-70.0); PLATELET COUNT 316 TH/MM3 (150-450); RED CELL DISTRIBUTION WIDTH 15.2 % (11.6-17.2); WHITE BLOOD COUNT 12.1 TH/MM3 (4.0-11.0)
[2016-09-15 05:15] LABS: ALKALINE PHOSPHATASE 82 U/L (45-117); ALT (GPT) 88 U/L (12-78); ANION GAP 10 MEQ/L (5-15); AST (GOT) 51 U/L (15-37); BICARBONATE 27.1 MEQ/L (21.0-32.0); BLOOD UREA NITROGEN 13 MG/DL (7-18); CHLORIDE 104 MEQ/L (98-107); GLOMERULAR FILTRATION RATE 123 ML/MIN (>89); POTASSIUM 3.6 MEQ/L (3.5-5.1); SODIUM (NA) 141 MEQ/L (136-145); TOTAL BILIRUBIN ADULT 1.4 MG/DL (0.2-1.0)
--- NOTE | 2016-09-15 06:29 | PD.CARD.PN ---
Subjective Subjective Remarks PT without CV complaints Objective Medications Current Medications Medications (Trade) Dose Ordered Sig/Manju Route Start Time Stop Time Status Last Admin (NS Flush) 2 ml UNSCH PRN .XX 09/13/16 19:15 (NS Flush) 2 ml BID .XX 09/13/16 21:00 09/14/16 08:08 (Tylenol) 650 mg Q6H PRN PO 09/13/16 19:15 09/13/16 21:06 (Morphine Inj) 2 mg Q2H PRN IV 09/13/16 19:15 (Protonix Inj) 40 mg Q12H IV 09/13/16 20:00 09/14/16 21:12 (Zofran Inj) 4 mg Q6H PRN IV 09/13/16 19:15 09/15/16 05:04 (Reglan Inj) 10 mg Q6H PRN IV 09/13/16 19:15 (Restoril) 15 mg HS PRN PO 09/13/16 19:15 09/14/16 21:12 Miscellaneous Information 1 [id number] XX 09/13/16 19:15 (Chlorhexidine 2% Cloth) 3 pack Taper DAILY@04 TOP 09/14/16 04:00 09/10/17 03:59 09/15/16 04:00 Chlorhexidine Gluconate 3 pack 3 pack UNSCH PRN TOP 09/13/16 19:15 (D5W-NS 1000 ml Inj) 1,000 ml @ 75 mls/hr [id number] IV 09/14/16 08:00 09/14/16 21:12 (D50w (Vial) Inj) 50 ml UNSCH PRN IV PUSH 09/14/16 08:00 (Glucagon Inj) 1 mg UNSCH PRN OTHER 09/14/16 08:00 Insulin Human Regular 1 1 Q6H SQ 09/14/16 08:00 Potassium Chloride 100 ml @ 50 mls/hr Q2H PRN IV 09/14/16 08:15 (KCl 20 Meq Premix Inj) 100 ml @ 50 mls/hr Q2H PRN IV 09/14/16 08:15 09/14/16 16:14 Potassium Bicarb/ Potassium Chloride 50 meq 50 meq UNSCH PRN PO 09/14/16 08:15 Potassium Chloride 100 ml @ 25 mls/hr UNSCH PRN IV 09/14/16 08:15 Potassium Chloride 100 ml @ 50 mls/hr Q2H PRN IV 09/14/16 08:15 (Magnesium Sulfate Inj/NS Inj) 100 ml @ 50 mls/hr UNSCH PRN IV 09/14/16 08:15 Magnesium Oxide 800 mg 800 mg UNSCH PRN PO 09/14/16 08:15 (Magnesium Sulfate Inj/NS Inj) 100 ml @ 50 mls/hr UNSCH PRN IV 09/14/16 08:15 Potassium Phosphate 2000 mg 2,000 mg Q4H PRN PO 09/14/16 08:15 (Sodium Phosphate Inj/NS 250 ml Inj) 250 ml @ 42 mls/hr UNSCH PRN IV 09/14/16 08:15 (K-Phos) 2,000 mg UNSCH PRN PO/TUBE 09/14/16 08:15 Vital Signs / I&O Vital Signs Date Time Temp Pulse Resp B/P Pulse Ox O2 Delivery O2 Flow Rate FiO2 09/15/16 06:00 92 09/15/16 04:00 97.7 92 25 140/78 93 09/15/16 04:00 92 09/15/16 02:00 96 09/15/16 00:00 97.5 93 30 145/72 95 09/15/16 00:00 93 09/14/16 22:00 91 09/14/16 20:00 90 09/14/16 20:00 97.6 90 32 139/64 95 09/14/16 19:06 91 09/14/16 19:00 93 09/14/16 18:01 93 09/14/16 18:00 93 09/14/16 17:00 88 09/14/16 16:00 97.8 83 32 118/58 100 09/14/16 16:00 83 09/14/16 15:00 86 09/14/16 15:00 86 36 100 09/14/16 14:00 86 33 122/63 97 09/14/16 14:00 86 09/14/16 13:00 89 38 135/63 98 09/14/16 13:00 89 09/14/16 12:00 98.6 87 35 125/59 98 09/14/16 12:00 87 09/14/16 11:00 88 09/14/16 10:01 88 09/14/16 10:00 88 09/14/16 09:28 97 Nasal Cannula 2.00 09/14/16 09:07 96 09/14/16 09:00 86 09/14/16 08:00 98.2 86 33 121/68 100 09/14/16 08:00 86 I/O 09/14/16 09/14/16 09/14/16 09/15/16 09/15/16 09/15/16 07:00 15:00 23:00 07:00 15:00 23:00 Intake Total 1524 ml 354 ml 1940 ml 514 ml Output Total 300 ml 300 ml 300 ml 250 ml Balance 1224 ml 54 ml 1640 ml 264 ml Intake Oral 0 ml 1080 ml 50 ml IV Total 886 ml 354 ml 860 ml 464 ml Packed Cells 638 ml Output Urine Total 300 ml 300 ml 300 ml 250 ml # Bowel Movements 0 2 0 0 Physical Exam GENERAL: Well developed, well nourished. No acute distress. HEENT: Jugular venous pressure is normal. CHEST: Lungs clear to auscultation bilaterally. Unlabored respiratory effort. CARDIAC: Regular rate and rhythm without S3, S4, or murmur. ABDOMEN: Soft, nontender, no hepatosplenomegaly. Bowel sounds present. EXTREMITIES: No clubbing, cyanosis, or edema. Laboratory Laboratory Tests Test 09/14/16 09/14/16 09/14/16 09/14/16 08:27 10:57 15:15 18:15 White Blood Count 11.9 TH/MM3 Red Blood Count 3.12 MIL/MM3 Hemoglobin 9.4 GM/DL 9.4 GM/DL 9.4 GM/DL 9.7 GM/DL Hematocrit 27.2 % 28.2 % 27.4 % 29.4 % Mean Corpuscular Volume 86.9 FL Mean Corpuscular Hemoglobin 30.0 PG Mean Corpuscular Hemoglobin 34.5 % Concent Red Cell Distribution Width 14.6 % Platelet Count 298 TH/MM3 Mean Platelet Volume 8.0 FL Neutrophils (%) (Auto) 86.6 % Lymphocytes (%) (Auto) 5.3 % Monocytes (%) (Auto) 6.8 % Eosinophils (%) (Auto) 1.1 % Basophils (%) (Auto) 0.2 % Neutrophils # (Auto) 10.3 TH/MM3 Lymphocytes # (Auto) 0.6 TH/MM3 Monocytes # (Auto) 0.8 TH/MM3 Eosinophils # (Auto) 0.1 TH/MM3 Basophils # (Auto) 0.0 TH/MM3 CBC Comment DIFF FINAL Differential Comment Sodium Level 139 MEQ/L Potassium Level 3.0 MEQ/L 3.8 MEQ/L Chloride Level 102 MEQ/L Carbon Dioxide Level 29.6 MEQ/L Anion Gap 7 MEQ/L Blood Urea Nitrogen 18 MG/DL Creatinine 0.58 MG/DL Estimat Glomerular Filtration 133 ML/MIN Rate Random Glucose 93 MG/DL Calcium Level 7.7 MG/DL Phosphorus Level 2.5 MG/DL Magnesium Level 2.1 MG/DL Total Bilirubin 1.7 MG/DL Aspartate Amino Transf 74 U/L (AST/SGOT) Alanine Aminotransferase 96 U/L (ALT/SGPT) Alkaline Phosphatase 80 U/L Troponin I 2.53 NG/ML 2.43 NG/ML Total Protein 6.0 GM/DL Albumin 2.9 GM/DL Test 09/14/16 09/15/16 22:32 03:47 Hemoglobin 9.5 GM/DL 9.6 GM/DL Hematocrit 27.6 % 29.2 % Troponin I 2.09 NG/ML 1.75 NG/ML White Blood Count 12.1 TH/MM3 Red Blood Count 3.30 MIL/MM3 Mean Corpuscular Volume 88.5 FL Mean Corpuscular Hemoglobin 29.0 PG Mean Corpuscular Hemoglobin 32.8 % Concent Red Cell Distribution Width 15.2 % Platelet Count 316 TH/MM3 Mean Platelet Volume 8.1 FL Neutrophils (%) (Auto) 87.6 % Lymphocytes (%) (Auto) 4.5 % Monocytes (%) (Auto) 7.4 % Eosinophils (%) (Auto) 0.2 % Basophils (%) (Auto) 0.3 % Neutrophils # (Auto) 10.6 TH/MM3 Lymphocytes # (Auto) 0.5 TH/MM3 Monocytes # (Auto) 0.9 TH/MM3 Eosinophils # (Auto) 0.0 TH/MM3 Basophils # (Auto) 0.0 TH/MM3 CBC Comment DIFF FINAL Differential Comment Sodium Level 141 MEQ/L Potassium Level 3.6 MEQ/L Chloride Level 104 MEQ/L Carbon Dioxide Level 27.1 MEQ/L Anion Gap 10 MEQ/L Blood Urea Nitrogen 13 MG/DL Creatinine 0.62 MG/DL Estimat Glomerular Filtration 123 ML/MIN Rate Random Glucose 125 MG/DL Calcium Level 8.1 MG/DL Total Bilirubin 1.4 MG/DL Aspartate Amino Transf 51 U/L (AST/SGOT) Alanine Aminotransferase 88 U/L (ALT/SGPT) Alkaline Phosphatase 82 U/L Total Protein 6.3 GM/DL Albumin 2.9 GM/DL Imaging ECHO- EF 40% Assessment and Plan Assessment and Plan 1. 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 He remains asymptomatic. There was global hypokinesis and thus I still feel this was most likely a secondary TN. Even if this is ischemic, he is not a revascularization candidate with his GIB. Thus it is reasonable to go forward with EGD and colonoscopy, though he will be at higher risk. 2. History of CAD - the patient does appear reasonably stable. At this point I would hold off on his aspirin secondary to GIB 3. GI bleed, it is very reasonable from a CV perspective to go forward with a Esophagogastroduodenoscopy and/or colonoscopy as appropriate for a GI. 4. AF- PAF here, rate controlled -no anticoagulation secondary to GIB Sarina Zaman MD September 15, 2016 06:29
[2016-09-15] MEDS: PANTOPRAZOLE SODIUM 40 MG VIAL IV SCH ×2 (09:18→20:33)
[2016-09-15] MEDS: SODIUM CHLORIDE 0.9% FLUSH 10 ML FLUSH SCH ×2 (09:19→20:34)
[2016-09-15] MEDS ORDERED: LORazepam 2 MG/ML VIAL IV PUSH ONE (09:45)
--- NOTE | 2016-09-15 09:49 | HHI.PR ---
Subjective Remarks The patient was resting in bed and anxious about the EGD. His was at the bedside. The pt says he has been having dark stools that are sticky and have a very foul odor. Discussed with nursing. Objective Vitals Vital Signs Date Time Temp Pulse Resp B/P Pulse Ox O2 Delivery O2 Flow Rate FiO2 09/15/16 06:00 92 09/15/16 04:00 97.7 92 25 140/78 93 09/15/16 04:00 92 09/15/16 02:00 96 09/15/16 00:00 97.5 93 30 145/72 95 09/15/16 00:00 93 09/14/16 22:00 91 09/14/16 20:00 90 09/14/16 20:00 97.6 90 32 139/64 95 09/14/16 19:06 91 09/14/16 19:00 93 09/14/16 18:01 93 09/14/16 18:00 93 09/14/16 17:00 88 09/14/16 16:00 97.8 83 32 118/58 100 09/14/16 16:00 83 09/14/16 15:00 86 09/14/16 15:00 86 36 100 09/14/16 14:00 86 33 122/63 97 09/14/16 14:00 86 09/14/16 13:00 89 38 135/63 98 09/14/16 13:00 89 09/14/16 12:00 98.6 87 35 125/59 98 09/14/16 12:00 87 09/14/16 11:00 88 09/14/16 10:01 88 09/14/16 10:00 88 I/O 09/14/16 09/14/16 09/14/16 09/15/16 09/15/16 09/15/16 07:00 15:00 23:00 07:00 15:00 23:00 Intake Total 1524 ml 354 ml 1940 ml 514 ml Output Total 300 ml 300 ml 300 ml 250 ml Balance 1224 ml 54 ml 1640 ml 264 ml Intake Oral 0 ml 1080 ml 50 ml IV Total 886 ml 354 ml 860 ml 464 ml Packed Cells 638 ml Output Urine Total 300 ml 300 ml 300 ml 250 ml # Bowel Movements 0 2 0 0 Result Diagram: 09/15/16 0347 09/15/16 0347 Imaging Last Impressions Liver Ultrasound 09/14/16 0000 Signed Impressions: Service Date/Time: Wednesday, September 14, 2016 10:20 - CONCLUSION: 1. The gallbladder is distended with multiple stones. No gallbladder wall thickening or pericholecystic fluid is evident. 2. The pancreas and left lobe of the liver were not well visualized due to body habitus. 3. Small right pleural effusion. Johnson Betancourt MD Chest X-Ray 09/13/16 1614 Signed Impressions: Service Date/Time: Tuesday, September 13, 2016 16:29 - CONCLUSION: Mild patchy infiltrate right lower lung. Mild pulmonary venous congestion. Bro Arrington MD Objective Remarks GENERAL: Well-nourished, well-developed patient in NAD. SKIN: Warm and dry. HEAD: Normocephalic. EYES: No scleral icterus. No injection or drainage. NECK: Supple, trachea midline. No JVD or lymphadenopathy. CARDIOVASCULAR: Regular rate and rhythm without murmurs, gallops, or rubs. RESPIRATORY: Breath sounds equal bilaterally. No accessory muscle use. GASTROINTESTINAL: Abdomen soft, non-tender, nondistended. MUSCULOSKELETAL: No cyanosis, or edema. BACK: Nontender without obvious deformity. No CVA tenderness. EXTREMITIES: No clubbing cyanosis or edema PSYCH: Anxious. Procedures EGD scheduled 09/15. Medications and IVs Current Medications Medications (Trade) Dose Ordered Sig/Manju Route Start Time Stop Time Status Last Admin (NS Flush) 2 ml UNSCH PRN .XX 09/13/16 19:15 (NS Flush) 2 ml BID .XX 09/13/16 21:00 09/15/16 09:19 (Tylenol) 650 mg Q6H PRN PO 09/13/16 19:15 09/13/16 21:06 (Morphine Inj) 2 mg Q2H PRN IV 09/13/16 19:15 (Protonix Inj) 40 mg Q12H IV 09/13/16 20:00 09/15/16 09:18 (Zofran Inj) 4 mg Q6H PRN IV 09/13/16 19:15 09/15/16 05:04 (Reglan Inj) 10 mg Q6H PRN IV 09/13/16 19:15 (Restoril) 15 mg HS PRN PO 09/13/16 19:15 09/14/16 21:12 Miscellaneous Information 1 Q361D XX 09/13/16 19:15 (Chlorhexidine 2% Cloth) 3 pack Taper DAILY@04 TOP 09/14/16 04:00 09/10/17 03:59 09/15/16 04:00 Chlorhexidine Gluconate 3 pack 3 pack UNSCH PRN TOP 09/13/16 19:15 (D5W-NS 1000 ml Inj) 1,000 ml @ 75 mls/hr [id number] IV 09/14/16 08:00 09/14/16 21:12 (D50w (Vial) Inj) 50 ml UNSCH PRN IV PUSH 09/14/16 08:00 (Glucagon Inj) 1 mg UNSCH PRN OTHER 09/14/16 08:00 Insulin Human Regular 1 1 Q6H SQ 09/14/16 08:00 Potassium Chloride 100 ml @ 50 mls/hr Q2H PRN IV 09/14/16 08:15 (KCl 20 Meq Premix Inj) 100 ml @ 50 mls/hr Q2H PRN IV 09/14/16 08:15 09/14/16 16:14 Potassium Bicarb/ Potassium Chloride 50 meq 50 meq UNSCH PRN PO 09/14/16 08:15 Potassium Chloride 100 ml @ 25 mls/hr UNSCH PRN IV 09/14/16 08:15 Potassium Chloride 100 ml @ 50 mls/hr Q2H PRN IV 09/14/16 08:15 (Magnesium Sulfate Inj/NS Inj) 100 ml @ 50 mls/hr UNSCH PRN IV 09/14/16 08:15 Magnesium Oxide 800 mg 800 mg UNSCH PRN PO 09/14/16 08:15 (Magnesium Sulfate Inj/NS Inj) 100 ml @ 50 mls/hr UNSCH PRN IV 09/14/16 08:15 Potassium Phosphate 2000 mg 2,000 mg Q4H PRN PO 09/14/16 08:15 (Sodium Phosphate Inj/NS 250 ml Inj) 250 ml @ 42 mls/hr UNSCH PRN IV 09/14/16 08:15 (K-Phos) 2,000 mg UNSCH PRN PO/TUBE 09/14/16 08:15 A/P Assessment and Plan Anemia S/t GI bleed. History of peptic ulcer. S/p three units of pRBCs. Hgb has been stable. GI consult appreciated. - follow CBC and transfuse PRBC to keep hemoglobin close to 8. - PPI. Coronary artery disease No history of chest pain. Nonspecific ST depressions on EKG. Probably due to severe anemia. Cardiology consult appreciated. - follow up with cardiology. - no ASA in setting of GIB. PNA Pt with leukocytosis and infiltrate on CXR. - start doxycycline. - sputum culture and gram stain. - O2 and nebs as needed. - Incentive spirometry. Paroxysmal A fib Rate controlled. - not on anticoagulation s/t GIB. - telemetry. Anxiety Chronic. Exacerbated by GIB. - anxiolytics as needed. PPx: SCDs. Discharge Planning Awaiting clinical improvement. Juan Salcedo DO September 15, 2016 09:49
[2016-09-15] MEDS: DEXT 5%-NACL 0.9% 1000 ML INJ 1,000 ML IV SCH ×2 (10:43→23:33)
[2016-09-15] MEDS: DOXYCYCLINE INJ 100 MG in SODIUM CHLORIDE 0.9% INJ 100 ML IV SCH ×2 (10:43→23:30)
--- NOTE | 2016-09-15 10:45 | EKG ---
Date Performed: 09/14/2016 Time Performed: 19:47:24 PTAGE: 85 years EKG: Sinus rhythm WITH FIRST DEGREE AV BLOCK ABNORMAL ECG PREVIOUS TRACING : 09/14/2016 13.20 DOCTOR: Bryce Em Interpretating Date/Time 09/15/2016 10:43:25
--- NOTE | 2016-09-15 11:05 | EKG ---
Date Performed: 09/14/2016 Time Performed: 13:20:02 PTAGE: 85 years EKG: ATRIAL FIBRILLATION MODERATE ST DEPRESSION ABNORMAL ECG PREVIOUS TRACING : 09/14/2016 07.19 DOCTOR: Bryce Em Interpretating Date/Time 09/15/2016 11:04:08
[2016-09-15] MEDS ORDERED: ONDANSETRON HCL 4 MG/2 ML VIAL IV PUSH ONE (12:00)
[2016-09-15] MEDS ORDERED: DO NOT ADM ANY ANTICOAGULANT DRUGS PRN (17:15)
[2016-09-15] MEDS ORDERED: PROPOFOL 200 MG/20 ML AMP IV ONE (17:59)
[2016-09-15] MEDS: TEMAZEPAM 15 MG CAP PO PRN (23:33)
[2016-09-16] VITALS (16 sets, daily range): BP systolic 118–157; BP diastolic 60–80; PULSE 81–105; RESP 20–37; TEMP 97.5–98.4; O2SAT 92–99
[2016-09-16] MEDS: INSULIN NovoLIN REGULAR SUPPLEMENTAL SCALE SQ SCH ×4 (02:00→20:00)
[2016-09-16] MEDS: ONDANSETRON HCL 4 MG/2 ML VIAL IV PRN (02:43)
[2016-09-16] MEDS: RESP: ALBUTEROL 2.5 MG/IPRATROPIUM 0.5 MG NEB (PRN) INH ×2 (03:22→08:54)
[2016-09-16 06:19] LABS: HEMATOCRIT 29.7 % (39.0-51.0); MEAN CELL VOLUME 90.3 FL (80.0-100.0); MEAN CORPUSCULAR HEMOGLOBIN 29.5 PG (27.0-34.0); MEAN CORPUSCULAR HGB CONC 32.7 % (32.0-36.0); PLATELET COUNT 297 TH/MM3 (150-450); RED BLOOD COUNT 3.29 MIL/MM3 (4.50-5.90); RED CELL DISTRIBUTION WIDTH 15.3 % (11.6-17.2); REVIEW FLAG FINAL; WHITE BLOOD COUNT 10.7 TH/MM3 (4.0-11.0)
[2016-09-16 06:55] LABS: BICARBONATE 25.8 MEQ/L (21.0-32.0); POTASSIUM 3.9 MEQ/L (3.5-5.1)
--- NOTE | 2016-09-16 08:42 | MR ---
cc: NADINE SZYMANSKI M.D. DATE 09/15/2016 DATE OF 1930 PROCEDURE Panendoscopy INDICATIONS FOR THE PROCEDURE Evaluation anemia, melena, rule out upper GI bleeding source. Photographs were taken. Biopsies were taken. PREMEDICATION Administered by anesthesiology. The patient was intubated prior to the procedure to protect the airway. Photographs were taken. MONITORING Accomplished with pulse oximeter, EKG, and blood pressure monitor. PROCEDURE NOTE After informed consent was obtained and the procedure, risks and benefits were explained including the risks of bleeding, sepsis, perforation, and the risks of anesthesia. The patient was placed in the left lateral position after intubation. The video endoscope was inserted in the esophagus easily. The esophagus appeared to be grossly normal throughout. In a retroflexed view, the cardia and fundus appeared to be grossly normal. The gastric body and antrum were unremarkable. The pylorus was patent. The duodenal bulb was entered. At the distal portion of the duodenal bulb, a 1 cm shallow clean based ulcer was found. No active bleeding was noted. There was no visible vessel. The second, and third portion of the duodenum were unremarkable. The scope was then gradually withdrawn. The scope was removed. The patient tolerated procedure well. Endoscopic treatment of the ulcer was not accomplished at this time since this was a clean base also without any obvious heme spot or obvious vessel present. Antral biopsies were taken to rule out H. pylori. IMPRESSION Clean based ulcer in the distal duodenal bulb. There was no active bleeding noted on this exam at this time. PLAN Would continue PPI therapy. We will add Carafate. Monitor the H&H closely. Follow up biopsies taken today. MD MIGUELITO Lara/WILLEM /5:00 PM /8:31 AM
[2016-09-16] MEDS: SODIUM CHLORIDE 0.9% FLUSH 10 ML FLUSH SCH ×2 (08:46→20:30)
[2016-09-16] MEDS: PANTOPRAZOLE SODIUM 40 MG VIAL IV SCH ×2 (08:46→20:29)
[2016-09-16] MEDS ORDERED: methylPREDNISolone SOD SUCC 125 MG/2 ML VIAL IV PUSH ONE (09:00)
[2016-09-16] MEDS ORDERED: FUROSEMIDE 40 MG/4 ML VIAL IV PUSH ONE (09:00)
--- NOTE | 2016-09-16 09:51 | RADRPT ---
EXAM DATE/TIME: 09/16/2016 09:10 [facility] COMPARISON: 09/13/2016. INDICATIONS : Short of breath. MEDICAL HISTORY : Chronic obstructive pulmonary disease. SURGICAL HISTORY : Coronary artery stent. CABG. ENCOUNTER: Initial ACUITY: 3 days PAIN SCORE: 0/10 LOCATION: Bilateral chest FINDINGS: A single view of the chest demonstrates there are four intact sternal wires. There is bilateral lowe r lobes consolidation left greater than right. Upper lungs are clear. There is mild pulmonary vascu lar congestion. There is atherosclerotic disease. CONCLUSION: Mild consolidation both lung bases. Mild pulmonary hilar vascular congestion. Bryce Thomas MD on September 16, 2016 at 9:40 Board Certified Radiologist. This report was verified electronically.
[2016-09-16] MEDS: DOXYCYCLINE INJ 100 MG in SODIUM CHLORIDE 0.9% INJ 100 ML IV SCH ×2 (10:36→22:34)
--- NOTE | 2016-09-16 12:34 | HHI.GIFU ---
Subjective Remarks ALert confused Nad no active bleeding hb stable 9.7 Objective Vitals I&O Vital Signs Date Time Temp Pulse Resp B/P Pulse Ox O2 Delivery O2 Flow Rate FiO2 09/16/16 10:00 98 09/16/16 08:00 98.1 84 22 148/60 92 09/16/16 08:00 84 09/16/16 06:00 82 09/16/16 04:00 97.8 98 24 122/75 93 09/16/16 04:00 98 09/16/16 03:26 95 Nasal Cannula 2.00 09/16/16 02:00 90 09/16/16 00:00 103 09/16/16 00:00 98.0 98 33 129/66 93 09/15/16 22:00 103 09/15/16 21:00 97.5 97 26 133/65 97 09/15/16 20:00 106 09/15/16 18:00 98 09/15/16 17:40 98.1 114 24 169/64 96 Nasal Cannula 2 09/15/16 17:15 98.1 112 24 142/66 95 Nasal Cannula 6 09/15/16 14:00 81 I/O 09/15/16 09/15/16 09/15/16 09/16/16 09/16/16 09/16/16 07:00 15:00 23:00 07:00 15:00 23:00 Intake Total 514 ml 886 ml 948 ml 743 ml Output Total 250 ml 500 ml 100 ml 250 ml Balance 264 ml 386 ml 848 ml 493 ml Intake Oral 50 ml 0 ml 500 ml 250 ml IV Total 464 ml 886 ml 448 ml 493 ml Output Urine Total 250 ml 500 ml 100 ml 250 ml # Bowel Movements 0 0 Laboratory Laboratory Tests Test 09/16/16 05:20 White Blood Count 10.7 Red Blood Count 3.29 Hemoglobin 9.7 Hematocrit 29.7 Mean Corpuscular Volume 90.3 Mean Corpuscular Hemoglobin 29.5 Mean Corpuscular Hemoglobin 32.7 Concent Red Cell Distribution Width 15.3 Platelet Count 297 Mean Platelet Volume 7.7 Sodium Level 141 Potassium Level 3.9 Chloride Level 107 Carbon Dioxide Level 25.8 Anion Gap 8 Blood Urea Nitrogen 13 Creatinine 0.64 Estimat Glomerular Filtration 119 Rate Random Glucose 106 Calcium Level 8.2 Magnesium Level 2.0 Physical Exam CHEST: Chest is clear to auscultation and percussion. CARDIAC: Regular rate and rhythm with no murmur gallop or rubs. ABDOMEN: Soft, nondistended, nontender; no hepatosplenomegaly; bowel sounds are present in all four quadrants. EXTREMITIES: No clubbing, cyanosis, or edema. SKIN: Normal; no rash; no jaundice. C Assessment and Plan Assessment: (1) GI bleed (2) Severe anemia (3) Duodenal bulb ulcer Plan Continue w protonix and carafate appears stable will fu gastric bxs discussed w will sign off thanks Arnold Gipson MD September 16, 2016 12:34
[2016-09-16] MEDS: SUCRALFATE 1 GM/10 ML CUP PO SCH ×3 (13:00→20:29)
--- NOTE | 2016-09-16 13:23 | HHI.PR ---
Subjective Remarks Patient denies cp/sob denies nausea or vomiting denies melena or hematochezia vital signs stable Called earlier by RN because patient was wheezing and short of breath. Objective Vitals Vital Signs Date Time Temp Pulse Resp B/P Pulse Ox O2 Delivery O2 Flow Rate FiO2 09/16/16 10:00 98 09/16/16 08:00 98.1 84 22 148/60 92 09/16/16 08:00 84 09/16/16 06:00 82 09/16/16 04:00 97.8 98 24 122/75 93 09/16/16 04:00 98 09/16/16 03:26 95 Nasal Cannula 2.00 09/16/16 02:00 90 09/16/16 00:00 103 09/16/16 00:00 98.0 98 33 129/66 93 09/15/16 22:00 103 09/15/16 21:00 97.5 97 26 133/65 97 09/15/16 20:00 106 09/15/16 18:00 98 09/15/16 17:40 98.1 114 24 169/64 96 Nasal Cannula 2 09/15/16 17:15 98.1 112 24 142/66 95 Nasal Cannula 6 09/15/16 14:00 81 I/O 09/15/16 09/15/16 09/15/16 09/16/16 09/16/16 09/16/16 07:00 15:00 23:00 07:00 15:00 23:00 Intake Total 514 ml 886 ml 948 ml 743 ml Output Total 250 ml 500 ml 100 ml 250 ml Balance 264 ml 386 ml 848 ml 493 ml Intake Oral 50 ml 0 ml 500 ml 250 ml IV Total 464 ml 886 ml 448 ml 493 ml Output Urine Total 250 ml 500 ml 100 ml 250 ml # Bowel Movements 0 0 Result Diagram: 09/16/16 0520 09/16/16 0520 Imaging Last Impressions Chest X-Ray 09/16/16 0000 Signed Impressions: Service Date/Time: August 09:10 - CONCLUSION: Mild consolidation both lung bases. Mild pulmonary hilar vascular congestion. Bryce Thomas MD Liver Ultrasound 09/14/16 0000 Signed Impressions: Service Date/Time: Wednesday, September 14, 2016 10:20 - CONCLUSION: 1. The gallbladder is distended with multiple stones. No gallbladder wall thickening or pericholecystic fluid is evident. 2. The pancreas and left lobe of the liver were not well visualized due to body habitus. 3. Small right pleural effusion. Johnson Betancourt MD Objective Remarks GENERAL: Well-nourished, well-developed patient in NAD. SKIN: Warm and dry. HEAD: Normocephalic. EYES: No scleral icterus. No injection or drainage. NECK: Supple, trachea midline. No JVD or lymphadenopathy. CARDIOVASCULAR: Regular rate and rhythm without murmurs, gallops, or rubs. RESPIRATORY: Breath sounds equal bilaterally. No accessory muscle use. No wheezing or rhonchi auscultated. GASTROINTESTINAL: Abdomen soft, non-tender, nondistended. MUSCULOSKELETAL: No cyanosis, or edema. BACK: Nontender without obvious deformity. No CVA tenderness. EXTREMITIES: No clubbing cyanosis or edema PSYCH: Anxious. Procedures EGD scheduled 09/15. Medications and IVs Current Medications Medications (Trade) Dose Ordered Sig/Manju Route Start Time Stop Time Status Last Admin (NS Flush) 2 ml UNSCH PRN .XX 09/13/16 19:15 09/16/16 09:19 (NS Flush) 2 ml BID .XX 09/13/16 21:00 09/16/16 08:46 (Tylenol) 650 mg Q6H PRN PO 09/13/16 19:15 09/13/16 21:06 (Morphine Inj) 2 mg Q2H PRN IV 09/13/16 19:15 (Protonix Inj) 40 mg Q12H IV 09/13/16 20:00 09/16/16 08:46 (Zofran Inj) 4 mg Q6H PRN IV 09/13/16 19:15 09/16/16 02:43 (Reglan Inj) 10 mg Q6H PRN IV 09/13/16 19:15 (Restoril) 15 mg HS PRN PO 09/13/16 19:15 09/15/16 23:33 Miscellaneous Information 1 Q361D XX 09/13/16 19:15 (Chlorhexidine 2% Cloth) 3 pack Taper DAILY@04 TOP 09/14/16 04:00 09/10/17 03:59 09/15/16 23:32 (Chlorhexidine 2% Cloth) 3 pack UNSCH PRN TOP 09/13/16 19:15 (D50w (Vial) Inj) 50 ml UNSCH PRN IV PUSH 09/14/16 08:00 (Glucagon Inj) 1 mg UNSCH PRN OTHER 09/14/16 08:00 Insulin Human Regular 1 1 Q6H SQ 09/14/16 08:00 Potassium Chloride 100 ml @ 50 mls/hr Q2H PRN IV 09/14/16 08:15 (KCl 20 Meq Premix Inj) 100 ml @ 50 mls/hr Q2H PRN IV 09/14/16 08:15 09/14/16 16:14 Potassium Bicarb/ Potassium Chloride 50 meq 50 meq UNSCH PRN PO 09/14/16 08:15 Potassium Chloride 100 ml @ 25 mls/hr UNSCH PRN IV 09/14/16 08:15 Potassium Chloride 100 ml @ 50 mls/hr Q2H PRN IV 09/14/16 08:15 (Magnesium Sulfate Inj/NS Inj) 100 ml @ 50 mls/hr UNSCH PRN IV 09/14/16 08:15 Magnesium Oxide 800 mg 800 mg UNSCH PRN PO 09/14/16 08:15 (Magnesium Sulfate Inj/NS Inj) 100 ml @ 50 mls/hr UNSCH PRN IV 09/14/16 08:15 Potassium Phosphate 2000 mg 2,000 mg Q4H PRN PO 09/14/16 08:15 (Sodium Phosphate Inj/NS 250 ml Inj) 250 ml @ 42 mls/hr UNSCH PRN IV 09/14/16 08:15 Potassium Phosphate 2000 mg 2,000 mg UNSCH PRN PO/TUBE 09/14/16 08:15 (Vibramycin Inj/ NS Inj) 100 ml @ 100 mls/hr Q12H IV 09/15/16 11:00 09/16/16 10:36 (Carafate Liq) 1 gm QID PO 09/16/16 13:00 09/16/16 13:00 Urinary Catheter: Yes Assessment to: Remove Vascular Central Line Catheter: No A/P Problem List: (1) GI bleed ICD Code: K92.2 Status: Acute Plan: S/t GI bleed. History of peptic ulcer. S/p three units of pRBCs. Hgb has been stable. GI consult appreciated. - follow CBC and transfuse PRBC to keep hemoglobin close to 8. -Continue Carafate and PPI. Access site as tolerated. The patient currently on full liquid diet and tolerating it well. (2) Severe anemia ICD Code: D64.9 Status: Acute Plan: Patient presented with a hemoglobin of 5.6. Status post transfusion of 3 units of PRBCs. Hemoglobin stable at 9.7. Transfuse as needed for hemoglobin less than 8 if active bleeding to a goal of more than 9. (3) Duodenal bulb ulcer ICD Code: K26.9 Status: Acute Plan: Patient is status post EGD on 09/15/16 which found an ulcer in the distal gastric bulb as well as a duodenal ulcer. There is no mention of bleeding. Follow-up pathology Continue Carafate and PPI. Advance diet as tolerated. (4) Hypokalemia ICD Code: E87.6 Status: Resolved Plan: Replaced. K level now normal. continue to monitor BMP. (5) Pneumonia ICD Code: J18.9 Status: Acute Plan: Chest x-ray on admission showed a mild patchy infiltrate in the right lower lung and mild pulmonary venous congestion. Repeat chest x-ray obtained today on 09/16/16 shows mild consolidation in both lung bases and mild hilar vascular congestion. Continue IV doxycycline. Continue supplemental oxygen to keep oxygen saturation more than 92% (6) NSTEMI (non-ST elevated myocardial infarction) ICD Code: I21.4 Status: Acute Plan: Patient had troponin elevation of 2.87. EF 40%. Patient remains asymptomatic. Cardiology consulted. As per Dr. Zaman there was global hypokinesis and troponin elevation likely secondary to an MA. However he is not a candidate for his conversation given his GI bleed. Patient was cleared by cardiology prior to the EGD and colonoscopy. Follow-up troponin in a.m. Assessment and Plan GI prophylaxis: Patient on PPI. DVT plexus: SCDs, no chemotherapy prophylaxis given GI bleed. Discharge Planning Possible discharge in a.m., pending patient tolerating diet. Patient will need rehabilitation. Problem Qualifiers (1) GI bleed: Qualified Code: K26.4 - Gastrointestinal hemorrhage associated with duodenal ulcer (2) Pneumonia: Qualified Code: J18.9 - Pneumonia of both lower lobes due to infectious organism Jose Pedroza MD September 16, 2016 13:23
[2016-09-17] VITALS (14 sets, daily range): BP systolic 126–146; BP diastolic 9–80; PULSE 80–96; RESP 20–38; TEMP 96.3–98.1; O2SAT 84–100
[2016-09-17] MEDS: INSULIN NovoLIN REGULAR SUPPLEMENTAL SCALE SQ SCH ×4 (02:00→19:13)
[2016-09-17] MEDS: CHLORHEXIDINE GLUCONATE 2 % 1 PACK (2 CLOTHS) TOP SCH (05:00)
[2016-09-17 06:44] LABS: HEMATOCRIT 30.5 % (39.0-51.0); MEAN CELL VOLUME 90.3 FL (80.0-100.0); MEAN CORPUSCULAR HEMOGLOBIN 29.9 PG (27.0-34.0); MEAN CORPUSCULAR HGB CONC 33.2 % (32.0-36.0); PLATELET COUNT 354 TH/MM3 (150-450); RED BLOOD COUNT 3.38 MIL/MM3 (4.50-5.90); RED CELL DISTRIBUTION WIDTH 16.1 % (11.6-17.2); REVIEW FLAG FINAL; WHITE BLOOD COUNT 12.2 TH/MM3 (4.0-11.0)
[2016-09-17 07:05] LABS: BICARBONATE 27.3 MEQ/L (21.0-32.0); POTASSIUM 4.2 MEQ/L (3.5-5.1)
[2016-09-17] MEDS: SUCRALFATE 1 GM/10 ML CUP PO SCH ×4 (08:08→20:23)
[2016-09-17] MEDS: PANTOPRAZOLE SODIUM 40 MG VIAL IV SCH ×2 (08:08→19:13)
[2016-09-17] MEDS: SODIUM CHLORIDE 0.9% FLUSH 10 ML FLUSH SCH ×2 (08:08→19:14)
[2016-09-17] MEDS: RESP: ALBUTEROL 2.5 MG/IPRATROPIUM 0.5 MG NEB (PRN) INH ×2 (09:18→18:20)
[2016-09-17] MEDS: DOXYCYCLINE INJ 100 MG in SODIUM CHLORIDE 0.9% INJ 100 ML IV SCH ×2 (11:10→22:16)
--- NOTE | 2016-09-17 15:27 | HHI.PR ---
Subjective Remarks Patient denies cp/sob denies fevers/chills no further melena Objective Vitals Vital Signs Date Time Temp Pulse Resp B/P Pulse Ox O2 Delivery O2 Flow Rate FiO2 09/17/16 12:00 100 Nasal Cannula 3.00 09/17/16 12:00 85 09/17/16 12:00 98.0 85 22 138/76 100 09/17/16 10:00 86 09/17/16 09:19 93 Nasal Cannula 4.00 09/17/16 08:00 97.8 87 24 146/67 100 09/17/16 08:00 100 Nasal Cannula 3.00 09/17/16 08:00 87 09/17/16 06:00 85 09/17/16 04:00 97.6 95 24 143/9 98 09/17/16 04:00 95 143/79 98 09/17/16 04:00 95 09/17/16 03:00 95 38 129/75 87 09/17/16 02:00 96 09/17/16 02:00 96 30 130/80 87 09/17/16 01:00 87 31 137/60 84 09/17/16 00:00 80 24 128/66 88 09/17/16 00:00 80 24 128/66 88 09/17/16 00:00 80 09/17/16 00:00 97.4 80 22 128/66 91 09/16/16 23:01 81 26 138/71 98 09/16/16 23:00 81 25 99 09/16/16 22:00 83 28 118/63 98 09/16/16 22:00 83 09/16/16 21:00 98 37 139/80 96 09/16/16 20:00 89 09/16/16 20:00 85 27 127/72 98 09/16/16 20:00 98 Nasal Cannula 3.00 09/16/16 20:00 97.5 85 22 127/72 98 09/16/16 18:00 105 09/16/16 16:00 98.3 98 20 157/73 97 09/16/16 16:00 98 I/O 09/16/16 09/16/16 09/16/16 09/17/16 09/17/16 09/17/16 07:00 15:00 23:00 07:00 15:00 23:00 Intake Total 743 ml 941 ml 0 ml 146 ml Output Total 250 ml 1600 ml 250 ml 200 ml Balance 493 ml -659 ml -250 ml -54 ml Intake Oral 250 ml 600 ml 0 ml 30 ml IV Total 493 ml 341 ml 0 ml 116 ml Output Urine Total 250 ml 1600 ml 250 ml 200 ml # Bowel Movements 0 0 Result Diagram: 09/17/16 0505 09/17/16 0505 Imaging Last Impressions Chest X-Ray 09/16/16 0000 Signed Impressions: Service Date/Time: August 09:10 - CONCLUSION: Mild consolidation both lung bases. Mild pulmonary hilar vascular congestion. Bryce Thomas MD Liver Ultrasound 09/14/16 0000 Signed Impressions: Service Date/Time: Wednesday, September 14, 2016 10:20 - CONCLUSION: 1. The gallbladder is distended with multiple stones. No gallbladder wall thickening or pericholecystic fluid is evident. 2. The pancreas and left lobe of the liver were not well visualized due to body habitus. 3. Small right pleural effusion. Johnson Betancourt MD Objective Remarks GENERAL: Well-nourished, well-developed patient in NAD. SKIN: Warm and dry. HEAD: Normocephalic. EYES: No scleral icterus. No injection or drainage. NECK: Supple, trachea midline. No JVD or lymphadenopathy. CARDIOVASCULAR: Regular rate and rhythm without murmurs, gallops, or rubs. RESPIRATORY: Breath sounds equal bilaterally. No accessory muscle use. No wheezing or rhonchi auscultated. GASTROINTESTINAL: Abdomen soft, non-tender, nondistended. MUSCULOSKELETAL: No cyanosis, or edema. BACK: Nontender without obvious deformity. No CVA tenderness. EXTREMITIES: No clubbing cyanosis or edema PSYCH: Anxious. Procedures EGD scheduled 09/15. Medications and IVs Current Medications Medications (Trade) Dose Ordered Sig/Manju Route Start Time Stop Time Status Last Admin (NS Flush) 2 ml UNSCH PRN .XX 09/13/16 19:15 09/16/16 09:19 (NS Flush) 2 ml BID .XX 09/13/16 21:00 09/17/16 08:08 (Tylenol) 650 mg Q6H PRN PO 09/13/16 19:15 09/13/16 21:06 (Morphine Inj) 2 mg Q2H PRN IV 09/13/16 19:15 (Protonix Inj) 40 mg Q12H IV 09/13/16 20:00 09/17/16 08:08 (Zofran Inj) 4 mg Q6H PRN IV 09/13/16 19:15 09/16/16 02:43 (Reglan Inj) 10 mg Q6H PRN IV 09/13/16 19:15 (Restoril) 15 mg HS PRN PO 09/13/16 19:15 09/15/16 23:33 Miscellaneous Information 1 Q361D XX 09/13/16 19:15 (Chlorhexidine 2% Cloth) 3 pack Taper DAILY@04 TOP 09/14/16 04:00 09/10/17 03:59 09/17/16 05:00 (Chlorhexidine 2% Cloth) 3 pack UNSCH PRN TOP 09/13/16 19:15 (D50w (Vial) Inj) 50 ml UNSCH PRN IV PUSH 09/14/16 08:00 (Glucagon Inj) 1 mg UNSCH PRN OTHER 09/14/16 08:00 Insulin Human Regular 1 1 Q6H SQ 09/14/16 08:00 Potassium Chloride 100 ml @ 50 mls/hr Q2H PRN IV 09/14/16 08:15 (KCl 20 Meq Premix Inj) 100 ml @ 50 mls/hr Q2H PRN IV 09/14/16 08:15 09/14/16 16:14 Potassium Bicarb/ Potassium Chloride 50 meq 50 meq UNSCH PRN PO 09/14/16 08:15 Potassium Chloride 100 ml @ 25 mls/hr UNSCH PRN IV 09/14/16 08:15 Potassium Chloride 100 ml @ 50 mls/hr Q2H PRN IV 09/14/16 08:15 (Magnesium Sulfate Inj/NS Inj) 100 ml @ 50 mls/hr UNSCH PRN IV 09/14/16 08:15 Magnesium Oxide 800 mg 800 mg UNSCH PRN PO 09/14/16 08:15 (Magnesium Sulfate Inj/NS Inj) 100 ml @ 50 mls/hr UNSCH PRN IV 09/14/16 08:15 Potassium Phosphate 2000 mg 2,000 mg Q4H PRN PO 09/14/16 08:15 (Sodium Phosphate Inj/NS 250 ml Inj) 250 ml @ 42 mls/hr UNSCH PRN IV 09/14/16 08:15 Potassium Phosphate 2000 mg 2,000 mg UNSCH PRN PO/TUBE 09/14/16 08:15 (Vibramycin Inj/ NS Inj) 100 ml @ 100 mls/hr Q12H IV 09/15/16 11:00 09/17/16 11:10 (Carafate Liq) 1 gm QID PO 09/16/16 13:00 09/17/16 13:35 (Bactroban Nasal 2% Oint) 1 applic BID NASAL 09/17/16 21:00 Urinary Catheter: No Vascular Central Line Catheter: No A/P Problem List: (1) GI bleed ICD Code: K92.2 Status: Acute Plan: S/t GI bleed. History of peptic ulcer. S/p three units of pRBCs. Hgb has been stable. GI consult appreciated. follow CBC and transfuse PRBC to keep hemoglobin close to 8. Continue Carafate and PPI. Patient is tolerating regular diet (2) Severe anemia ICD Code: D64.9 Status: Acute Plan: Patient presented with a hemoglobin of 5.6. Status post transfusion of 3 units of PRBCs. Hemoglobin stable at 9.7. Transfuse as needed for hemoglobin less than 8 if active bleeding to a goal of more than 9. (3) Duodenal bulb ulcer ICD Code: K26.9 Status: Acute Plan: Patient is status post EGD on 09/15/16 which found an ulcer in the distal gastric bulb as well as a duodenal ulcer. There is no mention of bleeding. Follow-up pathology Continue Carafate and PPI. (4) Hypokalemia ICD Code: E87.6 Status: Resolved Plan: Replaced. K level now normal. continue to monitor BMP. (5) Pneumonia ICD Code: J18.9 Status: Acute Plan: Chest x-ray on admission showed a mild patchy infiltrate in the right lower lung and mild pulmonary venous congestion. Repeat chest x-ray obtained today on 09/16/16 shows mild consolidation in both lung bases and mild hilar vascular congestion. Continue IV doxycycline. Continue supplemental oxygen to keep oxygen saturation more than 92% (6) NSTEMI (non-ST elevated myocardial infarction) ICD Code: I21.4 Status: Acute Plan: Patient had troponin elevation of 2.87. EF 40%. Patient remains asymptomatic. Cardiology consulted. As per Dr. Zaman there was global hypokinesis and troponin elevation likely secondary to an ID. However he is not a candidate for his conversation given his GI bleed. Patient was cleared by cardiology prior to the EGD and colonoscopy. troponin trending down to 0.82. Assessment and Plan GI prophylaxis: Patient on PPI. DVT plexus: SCDs, no chemotherapy prophylaxis given GI bleed. Discharge Planning Possible discharge in a.m., pending patient tolerating diet. Patient will need rehabilitation. Problem Qualifiers (1) GI bleed: Qualified Code: K26.4 - Gastrointestinal hemorrhage associated with duodenal ulcer (2) Pneumonia: Qualified Code: J18.9 - Pneumonia of both lower lobes due to infectious organism Jose Pedroza MD September 17, 2016 15:27
[2016-09-17] MEDS: MUPIROCIN 2% OINT 1 APPLIC/GM SYR NASAL SCH (20:23)
[2016-09-17] MEDS: TEMAZEPAM 15 MG CAP PO PRN (22:16)
[2016-09-18] VITALS: BP 142/66; PULSE 95; RESP 20; TEMP 96; O2SAT 98
[2016-09-18] MEDS: INSULIN NovoLIN REGULAR SUPPLEMENTAL SCALE SQ SCH ×3 (02:00→14:00)
[2016-09-18] MEDS: CHLORHEXIDINE GLUCONATE 2 % 1 PACK (2 CLOTHS) TOP SCH (02:32)
[2016-09-18 06:00] VITALS: BP 126/66; PULSE 94; RESP 20; TEMP 96; O2SAT 94
[2016-09-18] MEDS: RESP: ALBUTEROL 2.5 MG/IPRATROPIUM 0.5 MG NEB (PRN) INH ×3 (06:14→17:19)
[2016-09-18 08:00] VITALS: BP 128/68; PULSE 97; RESP 17; TEMP 97.5; O2SAT 95
[2016-09-18] MEDS: SODIUM CHLORIDE 0.9% FLUSH 10 ML FLUSH SCH (08:48)
[2016-09-18] MEDS: SUCRALFATE 1 GM/10 ML CUP PO SCH ×3 (08:48→16:57)
[2016-09-18] MEDS: PANTOPRAZOLE SODIUM 40 MG VIAL IV SCH (08:48)
[2016-09-18] MEDS: MUPIROCIN 2% OINT 1 APPLIC/GM SYR NASAL SCH (08:51)
[2016-09-18] MEDS: DOXYCYCLINE INJ 100 MG in SODIUM CHLORIDE 0.9% INJ 100 ML IV SCH (11:03)
[2016-09-18 12:00] VITALS: BP 106/67; PULSE 95; RESP 16; TEMP 97.5; O2SAT 94
[2016-09-18] MEDS ORDERED: IPRASOL INH (13:35)
[2016-09-18] MEDS ORDERED: SUCR1TAB PO (13:35)
[2016-09-18] MEDS ORDERED: PROT40TA PO (13:35)
--- NOTE | 2016-09-18 13:36 | HHI.DCPOC ---
Discharge Care Plan Diagnosis: (1) NSTEMI (non-ST elevated myocardial infarction) (2) Pneumonia (3) Hypokalemia (4) Severe anemia (5) Duodenal bulb ulcer (6) GI bleed (7) COPD (chronic obstructive pulmonary disease) Goals to Promote Your Health * To prevent worsening of your condition and complications * To maintain your health at the optimal level Directions to Meet Your Goals Take your medications as prescribed Follow your dietary instruction Follow activity as directed Keep your appointments as scheduled Take your immunizations and boosters as scheduled If your symptoms worsen call your PCP, if no PCP go to Urgent Care Center or Emergency Room Smoking is Dangerous to Your Health. Avoid second hand smoke Call the 24-hour hour crisis hotline for domestic abuse at Jose Pedroza MD September 18, 2016 13:36
--- NOTE | 2016-09-18 13:43 | HHI.DS ---
Discharge Summary Admission Date September 13, 2016 at 18:29 Discharge Date: September 18, 2016 Admitting Diagnosis GI BLEED, Anemia, hypokalemia, (1) GI bleed ICD Code: K92.2 Diagnosis: Principal (2) Severe anemia ICD Code: D64.9 Diagnosis: Principal (3) Duodenal bulb ulcer ICD Code: K26.9 Diagnosis: Principal (4) Hypokalemia ICD Code: E87.6 Diagnosis: Principal (5) Pneumonia ICD Code: J18.9 Diagnosis: Principal (6) NSTEMI (non-ST elevated myocardial infarction) ICD Code: I21.4 Diagnosis: Principal (7) Gastric ulcer ICD Code: K25.9 Diagnosis: Principal Procedures EGD scheduled 09/15. Brief History - From Admission 85-year-old gentleman with history of COPD, quit smoking more than 30 years ago now presents with complaints of weakness and dizziness. The patient reports of black tarry stools times several days. He denies any chest pain chest pressure. He does admits some shortness of breath however he has a history of COPD and attributed it to that. Per patient many years ago, he did have an ulcer that was treated with Pepcid. He denies any abdominal pain. He denies any abdominal bloating. CBC/BMP: 09/17/16 0505 09/17/16 0505 Significant Findings Laboratory Tests Test 09/16/16 09/17/16 05:20 05:05 Red Blood Count 3.29 MIL/MM3 3.38 MIL/MM3 (4.50-5.90) (4.50-5.90) Hemoglobin 9.7 GM/DL 10.1 GM/DL (13.0-17.0) (13.0-17.0) Hematocrit 29.7 % 30.5 % (39.0-51.0) (39.0-51.0) Calcium Level 8.2 MG/DL (8.5-10.1) White Blood Count 12.2 TH/MM3 (4.0-11.0) Troponin I 0.82 NG/ML (0.02-0.05) Imaging Last Impressions Chest X-Ray 5/18/17 0000 Signed Impressions: Service Date/Time: August 09:10 - CONCLUSION: Mild consolidation both lung bases. Mild pulmonary hilar vascular congestion. Bryce Thomas MD Liver Ultrasound 09/14/16 0000 Signed Impressions: Service Date/Time: Wednesday, September 14, 2016 10:20 - CONCLUSION: 1. The gallbladder is distended with multiple stones. No gallbladder wall thickening or pericholecystic fluid is evident. 2. The pancreas and left lobe of the liver were not well visualized due to body habitus. 3. Small right pleural effusion. Johnson Betancourt MD PE at Discharge GENERAL: Well-nourished, well-developed patient in NAD. SKIN: Warm and dry. HEAD: Normocephalic. EYES: No scleral icterus. No injection or drainage. NECK: Supple, trachea midline. No JVD or lymphadenopathy. CARDIOVASCULAR: Regular rate and rhythm without murmurs, gallops, or rubs. RESPIRATORY: Breath sounds equal bilaterally. No accessory muscle use. No wheezing or rhonchi auscultated. GASTROINTESTINAL: Abdomen soft, non-tender, nondistended. MUSCULOSKELETAL: No cyanosis, or edema. BACK: Nontender without obvious deformity. No CVA tenderness. EXTREMITIES: No clubbing cyanosis or edema PSYCH: Anxious. Pt update on day of discharge No further Gi bleed. Denies nausea or vomiting. Denies cp/sob. Hospital Course (1) GI bleed S/t GI bleed. History of peptic ulcer. S/p three units of pRBCs. Hgb has been stable. GI consult appreciated. followed CBC and transfuse PRBC to keep hemoglobin close to 8. Treated with Carafate,and Protonix sp EGD/colonoscopy with findings of gastric and duodenal ulcers. Patient initially placed NPo, diet advanced as tolerated. Patient was tolerating regular diet prior to DC. (2) Severe anemia Patient presented with a hemoglobin of 5.6. Status post transfusion of 3 units of PRBCs. Hemoglobin stable at 9.7. Transfuse as needed for hemoglobin less than 8 if active bleeding to a goal of more than 9. (3) Duodenal bulb ulcer Patient is status post EGD on 09/15/16 which found an ulcer in the distal gastric bulb as well as a duodenal ulcer. There is no mention of bleeding. Biopsy results revealed chronic gastritis and intestinal metaplasia. Stain for H. Pillory negative. Treated with Carafate and PPI. (4) Hypokalemia Replaced. K level now normal. continue to monitor BMP. (5) Pneumonia suspected aspiration pneumonia. Chest x-ray on admission showed a mild patchy infiltrate in the right lower lung and mild pulmonary venous congestion. Repeat chest x-ray obtained today on 09/16/16 shows mild consolidation in both lung bases and mild hilar vascular congestion. Continue IV doxycycline. Continue supplemental oxygen to keep oxygen saturation more than 92% (6) NSTEMI (non-ST elevated myocardial infarction) Patient had troponin elevation of 2.87. EF 40%. Patient remains asymptomatic. Cardiology consulted. As per Dr. Zaman there was global hypokinesis and troponin elevation likely secondary to an MN. However Patient not a candidate for his anticoagulation given his GI bleed. Patient was cleared by cardiology prior to the EGD and colonoscopy. troponin trending down to 0.82. GI prophylaxis: Patient on PPI. DVT Prophylaxis: SCDs, no chemotherapy prophylaxis given GI bleed. Pt Condition on Discharge: Stable Discharge Disposition: Discharge to SNF Discharge Time: > 30 minutes Discharge Instructions DIET: Follow Instructions for: Heart Healthy Diet Activities you can perform: Regular-No Restrictions, See Additionl Instruction Other Activity Instructions: OOb with assistance Follow up Referrals: Cardiology - 1 Week with Sarina Zaman MD Gastroenterology - 2 Weeks with Arnold Gipson MD PCP Follow-up - 1 Week New Medications: Pantoprazole (Protonix) 40 Mg Tab 40 MG PO DAILY Reflux #30 Ref 0 TAB Sucralfate (Sucralfate) 1 Gm Tab 1 GM PO QID on empty stomach Duodenal ulcer #120 Ref 0 TAB Ipratropium-Albuterol Neb (Duoneb) 0.5-2.5 Mg/3 Ml Neb 1 AMPULE INH Q2HR NEB PRN WHEEZING #1 BOX Continued Medications: Atorvastatin (Atorvastatin) 40 Mg Tab 40 MG PO HS Cholesterol Management Ref 0 TAB Eeupcxmnlzc-Hkurpktvakg-Jnn C- (Glucosamine Chondroitin) 1 Cap Cap Sertraline (Sertraline) 100 Mg Tab 100 MG PO DAILY #30 Ref 0 TAB Discontinued Medications: Aspirin (Aspirin) 81 Mg Tabdr 81 MG PO DAILY TAB Ginkgo Biloba (Ginkgo Biloba) 30 Mg Cap Ipratropium Boykins (Ipratropium Boykins) 1 Pow Pow Psyllium Powder (Psyllium Husk) 100 % Pow Jose Pedroza MD September 18, 2016 13:43
[2016-09-18 13:46] VITALS: O2SAT 93
[2016-09-18 16:00] VITALS: BP 112/60; PULSE 83; RESP 17; TEMP 97.4; O2SAT 94
== END 2016-09-18 18:33 | DRG 377 ==
LOC: NEPC 15:47 → NEDA 18:29 → HIMW 19:50 → N07B 09-17 18:03
PROVIDERS: ADMIT Hospitalist; ATTEND Hospitalist
PROC: 30233N1 Transfusion of Nonautologous Red Blood Cells into Peripheral Vein, Percutaneous Approach (ICD-10-PCS; principal; 2016-09-13)
PROC: 0DB68ZX Excision of Stomach, Via Natural or Artificial Opening Endoscopic, Diagnostic (ICD-10-PCS; 2016-09-15)
DX: K26.4 Chronic or unspecified duodenal ulcer with hemorrhage (principal); I21.4 Non-ST elevation (NSTEMI) myocardial infarction; J18.9 Pneumonia, unspecified organism; J44.0 Chronic obstructive pulmonary disease with (acute) lower respiratory infection; I48.0 Paroxysmal atrial fibrillation; D62 Acute posthemorrhagic anemia; F03.90 Unspecified dementia, unspecified severity, without behavioral disturbance, psychotic disturbance, mood disturbance, and anxiety; I25.10 Atherosclerotic heart disease of native coronary artery without angina pectoris; J45.909 Unspecified asthma, uncomplicated; K80.20 Calculus of gallbladder without cholecystitis without obstruction; E87.6 Hypokalemia; K21.9 Gastro-esophageal reflux disease without esophagitis; H91.90 Unspecified hearing loss, unspecified ear; E78.5 Hyperlipidemia, unspecified; G47.30 Sleep apnea, unspecified; K57.90 Diverticulosis of intestine, part unspecified, without perforation or abscess without bleeding; F41.9 Anxiety disorder, unspecified; Z79.01 Long term (current) use of anticoagulants; Z87.11 Personal history of peptic ulcer disease; Z87.891 Personal history of nicotine dependence; Z95.1 Presence of aortocoronary bypass graft; Z95.5 Presence of coronary angioplasty implant and graft; Z98.1 Arthrodesis status
CPT/HCPCS: 36430; 36600; 71010; 76705; 80048; 80053; 81001; 82550; 82552; 82805; 82948; 83690; 83735; 84100; 84132; 84484; 85014; 85018; 85025; 85027; 85610; 85730; 86850; 86900; 86901; 86920; 87641; 88305; 88312; 93005; 93306; 94150; 94640; 94664; 96374; C9113; J1940; J2060; J2405; J2930; J3010; J3480; J7030; J7042; P9016

== ENCOUNTER 2016-10-13 14:55 | Inpatient (IN) | payer MEDICARE ==
[~2016-10-13] VITALS: Ht 193 cm; Wt 88.6 kg
[~2016-10-13 14:55] MED LIST changes: +ATOR40TA16 PO; -ATOR40TA49 PO; +GLUC1CAP16; +IPRASOL INH; +MULT1CHW70; -NORC7.5T PO; -PANT40IN3 PO; -POTA20IN3 PO; +PROT40TA PO; -RIVA10 PO; +SERT-129 PO; +SUCR1TAB PO; -TAB-TAB PO; -WALKER STANDARD
[2016-10-13 14:58] VITALS: BP 115/60; PULSE 86; RESP 16; TEMP 97.7; O2SAT 96
[2016-10-13] MEDS ORDERED: POTA10CA PO (15:43)
[2016-10-13] MEDS ORDERED: ALPR.5 PO (15:43)
[2016-10-13] MEDS ORDERED: FURO20TA PO (15:43)
--- NOTE | 2016-10-13 16:06 | PD ---
HPI Chief Complaint: Cold / Flu Symptoms Time Seen by Provider: 15:57 Travel History International Travel<30 days: No Contact w/Intl Traveler<30days: No Traveled to known affect area: No History of Present Illness HPI 86-year-old male with history of COPD on 2 L nasal cannula at home, CAD, CABG, recent admission last month for upper GI bleed, here for evaluation of cough and dyspnea on exertion. After the patient was discharged last month he was sent to a rehabilitation facility where he supposedly had pneumonia which was treated with antibiotics which the patient with the patient's can remember the name of. For the last week he has been having a cough which worsened yesterday. Cough is nonproductive. Patient gets pains in his chest when he coughs, none at rest. No orthopnea. No hemoptysis. He reports that he believes his GI bleed has resolved. PFSH Past Medical History Hx Anticoagulant Therapy: Yes (ASPIRIN ) Asthma: Yes Atrial Fibrillation: Yes Cardiovascular Problems: Yes (CABG x3 2007; STENT x2 2012) High Cholesterol: Yes COPD: Yes Diminished Hearing: Yes ([place]) Respiratory: Yes (COPD) Influenza Vaccination: Yes ?: Not Past Surgical History Cardiac Surgery: Yes (CABG x3; STENT x2) Thoracic Surgery: Yes (SPINAL FUSION) Social History Alcohol Use: No (FORMERLY OFTEN ) Tobacco Use: No Substance Use: No Allergies-Medications (Allergen,Severity, Reaction): Coded Allergies: *MDRO Multi-Drug Resistant Organism (Verified Adverse Reaction, Unknown, ) MRSA PCR screen POSITIVE 09/14/16 Reported Meds & Prescriptions Reported Meds & Active Scripts Active Protonix (Pantoprazole Sodium) 40 Mg Tab 40 Mg PO DAILY Sucralfate 1 Gm Tab 1 Gm PO QID on empty stomach Duoneb (Ipratropium-Albuterol Neb) 0.5-2.5 Mg/3 Ml Neb 1 Ampule INH Q2HR NEB PRN Reported Xanax (Alprazolam) 0.5 Mg Tab 0.5 Mg PO Q6H PRN Potassium Chloride ER (Potassium Chloride) 10 Meq Cap 10 Meq PO DAILY Furosemide 20 Mg Tab 20 Mg PO DAILY Glucosamine Chondroitin (Mmhcucienar-Jumclrmidpb-Wus C-) 1 Cap Cap Sertraline (Sertraline HCl) 100 Mg Tab 100 Mg PO DAILY Atorvastatin (Atorvastatin Calcium) 40 Mg Tab 40 Mg PO HS Review of Systems Except as stated in HPI: all other systems reviewed are Neg Physical Exam Narrative GENERAL: Well-developed, well-nourished, comfortable, no acute distress. SKIN: Focused skin assessment warm/dry. No rash. No pallor. HEAD: Atraumatic. Normocephalic. EYES: Pupils equal and round. No scleral icterus. No injection or drainage. ENT: Mucous membranes pink and moist. NECK: Trachea midline. No JVD. CARDIOVASCULAR: Regular rate and rhythm. No murmur appreciated. RESPIRATORY: No accessory muscle use. Clear to auscultation. Breath sounds equal bilaterally. GASTROINTESTINAL: Abdomen soft, non-tender, nondistended. MUSCULOSKELETAL: No obvious deformities. No clubbing. No cyanosis. Moderate bilateral lower extremity edema from foot to knee. NEUROLOGICAL: Awake and alert. No obvious cranial nerve deficits. Motor grossly within normal limits. Normal speech. PSYCHIATRIC: Appropriate mood and affect; insight and judgment normal. Data Data Last Documented VS Vital Signs Date Time Temp Pulse Resp B/P Pulse Ox O2 Delivery O2 Flow Rate FiO2 10/13/16 16:18 Nasal Cannula 2 10/13/16 16:18 95 10/13/16 14:58 97.7 86 16 115/60 Orders Complete Blood Count With Diff (10/13/16 16:01) Comprehensive Metabolic Panel (10/13/16 16:01) B-Type Natriuretic Peptide (10/13/16 16:01) Act Partial Throm Time (Ptt) (10/13/16 16:01) Prothrombin Time / Inr (Pt) (10/13/16 16:01) Ckmb (Isoenzyme) Profile (10/13/16 16:01) Troponin I (10/13/16 16:01) Influenzae A/B Antigen (10/13/16 16:01) Iv Access Insert/Monitor (10/13/16 16:01) Electrocardiogram (10/13/16 16:01) Ecg Monitoring (10/13/16 16:01) Oximetry (10/13/16 16:01) Oxygen Administration (10/13/16 16:01) Chest, Single Ap (10/13/16 16:01) Sodium Chloride 0.9% Flush (Ns Flush) (10/13/16 16:15) Levofloxacin 500 Mg Premix Inj (Levaquin (10/13/16 17:15) Blood Culture (10/13/16 17:06) Furosemide Inj (Lasix Inj) (10/13/16 17:15) Labs Laboratory Tests Test 10/13/16 16:15 White Blood Count 10.2 TH/MM3 Red Blood Count 3.75 MIL/MM3 Hemoglobin 10.6 GM/DL Hematocrit 31.9 % Mean Corpuscular Volume 85.0 FL Mean Corpuscular Hemoglobin 28.4 PG Mean Corpuscular Hemoglobin 33.4 % Concent Red Cell Distribution Width 15.7 % Platelet Count 367 TH/MM3 Mean Platelet Volume 7.6 FL Neutrophils (%) (Auto) 77.1 % Lymphocytes (%) (Auto) 10.5 % Monocytes (%) (Auto) 7.9 % Eosinophils (%) (Auto) 2.5 % Basophils (%) (Auto) 2.0 % Neutrophils # (Auto) 7.8 TH/MM3 Lymphocytes # (Auto) 1.1 TH/MM3 Monocytes # (Auto) 0.8 TH/MM3 Eosinophils # (Auto) 0.3 TH/MM3 Basophils # (Auto) 0.2 TH/MM3 CBC Comment DIFF FINAL Differential Comment Prothrombin Time 12.2 SEC Prothromb Time International 1.1 RATIO Ratio Activated Partial 28.0 SEC Thromboplast Time Sodium Level 138 MEQ/L Potassium Level 4.0 MEQ/L Chloride Level 100 MEQ/L Carbon Dioxide Level 29.2 MEQ/L Anion Gap 9 MEQ/L Blood Urea Nitrogen 7 MG/DL Creatinine 0.65 MG/DL Estimat Glomerular Filtration 116 ML/MIN Rate Random Glucose 92 MG/DL Calcium Level 8.6 MG/DL Total Bilirubin 0.9 MG/DL Aspartate Amino Transf 25 U/L (AST/SGOT) Alanine Aminotransferase 20 U/L (ALT/SGPT) Alkaline Phosphatase 109 U/L Total Creatine Kinase 33 U/L Troponin I 0.03 NG/ML B-Type Natriuretic Peptide 352 PG/ML Total Protein 7.1 GM/DL Albumin 3.0 GM/DL [facility] Medical Decision Making Medical Screen Exam Complete: Yes Emergency Medical Condition: Yes Medical Record Reviewed: Yes Interpretation(s) EKG: Atrial fibrillation, rate 81, normal axis, nonspecific T-wave abnormality, no ST segment abnormalities. Patient does not know of any history of atrial fibrillation, however previous EKG does show A. fib. Differential Diagnosis Pneumonia, bronchitis, PE, ACS, anemia, pulmonary edema/CHF Narrative Course Initial vital signs show heart rate 86, blood pressure 115/60, pulse ox 95% on 2 L nasal cannula, oral temp of 97.7F. CBC shows WBC 10.2, hemoglobin 10.6, hematocrit 31.9, platelets 67. CMP is essentially unremarkable. Troponin is 0.03. BNP is 352. Chest x-ray: CONCLUSION: 1. Mild positive fluid balance. 2. Improved bilateral lower lobe airspace disease. Chart review shows that the patient had an echocardiogram on 02/14/17 which shows diffuse hypokinesis with an EF between 40 and 45%. Patient and the patient's were made aware of all findings. He takes 20 mg of Lasix daily. He has a persistent cough that is nonproductive while here in the emergency department. He is also short of breath with exertion. Given ongoing symptoms with above findings, the patient be admitted for further treatment and evaluation of CHF exacerbation and bilateral pneumonia. The patient was given 40 mg of IV Lasix as well as 500 mg of IV Levaquin. Blood cultures sent prior to antibiotic administration. The patient and the patient' s are amenable with this plan. Case discussed with hospitalist Dr. Zurita who will admit the patient to her service. Diagnosis Primary Impression: CHF exacerbation Qualified Code: I50.9 - Acute on chronic congestive heart failure, unspecified congestive heart failure type Additional Impressions: Pneumonia Qualified Code: J18.9 - Pneumonia of both lower lobes due to infectious organism Dyspnea on exertion Admitting Information Admitting Physician Requests: Elijah Yanez MD Oct 13, 2016 16:06
[2016-10-13] MEDS ORDERED: SODIUM CHLORIDE 0.9% FLUSH 10 ML FLUSH IVF PRN (16:15)
[2016-10-13 16:18] VITALS: O2SAT 95
[2016-10-13 16:23] LABS: AUTOMATED NEUTROPHIL # 7.8 TH/MM3 (1.8-7.7); BASOPHIL # 0.2 TH/MM3 (0-0.2); EOSINOPHIL # 0.3 TH/MM3 (0-0.4); EOSINOPHIL % 2.5 % (0.0-4.0); HEMATOCRIT 31.9 % (39.0-51.0); LYMPH % 10.5 % (9.0-44.0); LYMPHOCYTE # 1.1 TH/MM3 (1.0-4.8); MEAN CORPUSCULAR HEMOGLOBIN 28.4 PG (27.0-34.0); MEAN CORPUSCULAR HGB CONC 33.4 % (32.0-36.0); MONO % 7.9 % (0.0-8.0); NEUT % 77.1 % (16.0-70.0); PLATELET COUNT 367 TH/MM3 (150-450); RED BLOOD COUNT 3.75 MIL/MM3 (4.50-5.90); RED CELL DISTRIBUTION WIDTH 15.7 % (11.6-17.2); WHITE BLOOD COUNT 10.2 TH/MM3 (4.0-11.0)
[2016-10-13 16:34] LABS: HEMO FLAGS DIFF FINAL
[2016-10-13 16:35] LABS: CHLORIDE 100 MEQ/L (98-107); SODIUM (NA) 138 MEQ/L (136-145)
[2016-10-13 16:38] LABS: ANION GAP 9 MEQ/L (5-15); BICARBONATE 29.2 MEQ/L (21.0-32.0); BLOOD UREA NITROGEN 7 MG/DL (7-18)
[2016-10-13 16:39] LABS: INTERNATIONAL NORMALIZED RATIO 1.1 RATIO; PROTHROMBIN TIME - PATIENT 12.2 SEC (9.8-11.6)
[2016-10-13 16:41] LABS: ALT (GPT) 20 U/L (12-78); AST (GOT) 25 U/L (15-37)
[2016-10-13 16:42] LABS: GLOMERULAR FILTRATION RATE 116 ML/MIN (>89)
[2016-10-13 16:43] LABS: TOTAL BILIRUBIN ADULT 0.9 MG/DL (0.2-1.0)
[2016-10-13 16:44] LABS: ALKALINE PHOSPHATASE 109 U/L (45-117)
--- NOTE | 2016-10-13 16:59 | RADHPO ---
EXAM DATE/TIME: 10/13/2016 16:05 [facility] COMPARISON: CHEST SINGLE AP, September 16, 2016, 9:10. INDICATIONS : Shortness of breath. MEDICAL HISTORY : Chronic obstructive pulmonary disease. SURGICAL HISTORY : Coronary artery stent. CABG. ENCOUNTER: Initial ACUITY: 1 day PAIN SCORE: 0/10 LOCATION: Bilateral chest FINDINGS: Postsurgical features of prior median sternotomy. Improved bilateral lower lung zone patchy airspace disease. Diffuse interstitial prominence. Cardiomediastinal contours are within normal limits. Pulmon nazario vascularity is slightly indistinct. Remainder of the exam is unchanged. CONCLUSION: 1. Mild positive fluid balance. 2. Improved bilateral lower lobe airspace disease. Theodore Zavala MD on October 13, 2016 at 16:55 Board Certified Radiologist. This report was verified electronically.
[2016-10-13 17:01] LABS: CREATINE KINASE 33 U/L (39-308)
[2016-10-13] MEDS ORDERED: FUROSEMIDE 40 MG/4 ML VIAL IV PUSH ONE (17:15)
[2016-10-13] MEDS ORDERED: LEVOFLOXACIN 500 MG PREMIX INJ 100 ML IV ONE (17:15)
[2016-10-13] MEDS ORDERED: MAGNESIUM HYDROXIDE SUSP 30 ML CUP PO PRN (17:45)
[2016-10-13] MEDS ORDERED: LACTULOSE SYRUP 20 GM/30 ML CUP PO PRN (17:45)
[2016-10-13] MEDS ORDERED: SENNOSIDES 8.6 MG TAB PO PRN (17:45)
[2016-10-13] MEDS ORDERED: ACETAMINOPHEN 325 MG TAB PO PRN (17:45)
[2016-10-13] MEDS ORDERED: NALOXONE HCL 0.4 MG/ML AMP IV PRN (17:45)
[2016-10-13] MEDS ORDERED: BISACODYL 10 MG SUPP RECTAL PRN (17:45)
[2016-10-13] MEDS ORDERED: ONDANSETRON HCL 4 MG/2 ML VIAL IVP PRN (17:45)
[2016-10-13] MEDS ORDERED: SODIUM CHLORIDE 0.9% FLUSH 10 ML FLUSH IV FLUSH PRN (17:45)
[2016-10-13 18:03] VITALS: BP 130/83
[2016-10-13] MEDS: SODIUM CHLORIDE 0.9% FLUSH 10 ML FLUSH IV FLUSH SCH (20:11)
[2016-10-13] MEDS: ENOXAPARIN SODIUM 40 MG/0.4 ML SYRINGE SQ SCH (20:11)
[2016-10-13 20:46] VITALS: PULSE 88
[2016-10-13] MEDS: DOCUSATE SODIUM 50 MG/SENNA 8.6 MG TAB PO SCH (21:00)
[2016-10-13] MEDS: ATORVASTATIN 40 MG TAB PO SCH (21:22)
[2016-10-13 21:45] VITALS: O2SAT 96
[2016-10-13] MEDS: SUCRALFATE 1 GM TAB PO SCH (22:59)
[2016-10-13 23:32] VITALS: BP 105/66; PULSE 83; RESP 18; TEMP 96.8; O2SAT 96
[2016-10-14] VITALS (7 sets, daily range): BP systolic 103–134; BP diastolic 57–68; PULSE 87–102; RESP 18–20; TEMP 96.5–99.4; O2SAT 18–100
[2016-10-14 05:11] LABS: POTASSIUM 3.7 MEQ/L (3.5-5.1)
[2016-10-14 05:14] LABS: BICARBONATE 30.5 MEQ/L (21.0-32.0)
[2016-10-14] MEDS: SODIUM CHLORIDE 0.9% FLUSH 10 ML FLUSH IV FLUSH SCH ×2 (09:00→22:28)
--- NOTE | 2016-10-14 09:03 | HHI.HP ---
[facility] Service [place] [facility] Primary Care Physician Moisés Sampson M.D. Admission Diagnosis CHF, pneumonia, dyspnea on exertion Diagnoses: (1) CHF exacerbation (2) Dyspnea on exertion (3) Pneumonia (4) COPD (chronic obstructive pulmonary disease) (5) Hyperlipidemia Chief Complaint: Dyspnea Travel History International Travel<30 Days: No Contact w/Intl Traveler <30 Da: No Traveled to Known Affected Are: No History of Present Illness The patient is an 86-year-old male with history of COPD and coronary artery disease. He presented to the emergency department yesterday for evaluation of cough and worsening shortness of breath. He states that the cough is minimally productive. He denies fever, chills. He states that he has always had night sweats. No chest pain. Shortness of breath is somewhat better today. He also has lower extremity swelling, which is somewhat worse. Review of Systems Constitutional: DENIES: Fever, Chills, Night Sweats Eyes: DENIES: Blurred vision, Vision loss Ears, nose, mouth, throat: DENIES: Hearing loss Respiratory: COMPLAINS OF: Cough, Sputum production, Shortness of breath, DENIES: Wheezing Cardiovascular: COMPLAINS OF: Dyspnea on Exertion, Lower Extremity Edema, DENIES: Chest pain, Palpitations Gastrointestinal: DENIES: Abdominal pain, Constipation, Diarrhea, Nausea, Vomiting Genitourinary: DENIES: Urinary frequency, Urinary incontinence, Urgency, Hematuria, Dysuria, Nocturia Musculoskeletal: DENIES: Joint pain, Muscle aches Integumentary: DENIES: Pruritus, Rash Hematologic/lymphatic: DENIES: Bruising Neurologic: DENIES: Headache Past Family Social History Past Medical History COPD CAD Atrial fibrillation Hyperlipidemia Past Surgical History CABG 3 vessels Coronary artery stent 2 Spinal fusion Reported Medications Protonix (Pantoprazole Sodium) 40 Mg Tab 40 Mg PO DAILY Sucralfate 1 Gm Tab 1 Gm PO QID on empty stomach Duoneb (Ipratropium-Albuterol Neb) 0.5-2.5 Mg/3 Ml Neb 1 Ampule INH Q2HR NEB PRN Xanax (Alprazolam) 0.5 Mg Tab 0.5 Mg PO Q6H PRN Potassium Chloride ER (Potassium Chloride) 10 Meq Cap 10 Meq PO DAILY Furosemide 20 Mg Tab 20 Mg PO DAILY Glucosamine Chondroitin (Otwowpsuwhm-Fzufsvqzbrz-Uds C-) 1 Cap Cap Sertraline (Sertraline HCl) 100 Mg Tab 100 Mg PO DAILY Atorvastatin (Atorvastatin Calcium) 40 Mg Tab 40 Mg PO HS Allergies: Coded Allergies: *MDRO Multi-Drug Resistant Organism (Verified Adverse Reaction, Unknown, ) MRSA PCR screen POSITIVE 09/14/16 Family History Denies Social History Quit smoking more than 40 years ago. Denies alcohol or illicit drug use. Physical Exam Vital Signs Vital Signs Date Time Temp Pulse Resp B/P Pulse Ox O2 Delivery O2 Flow Rate FiO2 10/14/16 08:00 96.8 88 18 125/62 99 10/14/16 04:00 96.5 89 20 109/57 98 10/13/16 23:32 96.8 83 18 105/66 96 10/13/16 21:45 96 Nasal Cannula 2.00 10/13/16 20:46 88 10/13/16 18:03 83 130/83 98 2 10/13/16 16:18 Nasal Cannula 2 10/13/16 16:18 95 10/13/16 14:58 97.7 86 16 115/60 96 Physical Exam GENERAL: Elderly male in no acute distress. HEENT: Normocephalic, atraumatic. Pupils equal, round and reactive. Extraocular movements intact. No scleral icterus. No injection or drainage. Oropharynx is clear. Mucous membranes are moist. CARDIOVASCULAR: Regular rate and rhythm without murmurs, gallops, or rubs. RESPIRATORY: Mild scattered wheeze. Bibasilar crackles are noted. Breathing is non-labored. GASTROINTESTINAL: Abdomen soft, non-tender, nondistended. EXTREMITIES: 2+ bilateral lower extremity edema. No calf tenderness. PSYCH: Alert and oriented x 3. Laboratory Laboratory Tests Test 10/13/16 10/13/16 10/14/16 16:15 22:07 04:31 White Blood Count 10.2 Red Blood Count 3.75 Hemoglobin 10.6 Hematocrit 31.9 Mean Corpuscular Volume 85.0 Mean Corpuscular Hemoglobin 28.4 Mean Corpuscular Hemoglobin 33.4 Concent Red Cell Distribution Width 15.7 Platelet Count 367 Mean Platelet Volume 7.6 Neutrophils (%) (Auto) 77.1 Lymphocytes (%) (Auto) 10.5 Monocytes (%) (Auto) 7.9 Eosinophils (%) (Auto) 2.5 Basophils (%) (Auto) 2.0 Neutrophils # (Auto) 7.8 Lymphocytes # (Auto) 1.1 Monocytes # (Auto) 0.8 Eosinophils # (Auto) 0.3 Basophils # (Auto) 0.2 CBC Comment DIFF FINAL Differential Comment Prothrombin Time 12.2 Prothromb Time International 1.1 Ratio Activated Partial 28.0 Thromboplast Time Sodium Level 138 138 Potassium Level 4.0 3.7 Chloride Level 100 99 Carbon Dioxide Level 29.2 30.5 Anion Gap 9 9 Blood Urea Nitrogen 7 8 Creatinine 0.65 0.57 Estimat Glomerular Filtration 116 136 Rate Random Glucose 92 93 Calcium Level 8.6 8.0 Total Bilirubin 0.9 Aspartate Amino Transf 25 (AST/SGOT) Alanine Aminotransferase 20 (ALT/SGPT) Alkaline Phosphatase 109 Total Creatine Kinase 33 32 25 Troponin I 0.03 0.03 0.04 B-Type Natriuretic Peptide 352 Total Protein 7.1 Albumin 3.0 Date/Time Procedure Status Source Growth 10/13/16 17:38 Aerobic Blood Culture Received Blood Peripheral Pending 10/13/16 17:38 Anaerobic Blood Culture Received Blood Peripheral Pending 10/13/16 16:15 Influenza Types A,B Antigen ([facility]) - Final Complete Nasal Washing NEGATIVE FOR FLU A AND B ANTIGEN.... Result Diagram: 10/13/16 1615 10/14/16 0431 Imaging Last Impressions Chest X-Ray 10/13/16 1601 Signed Impressions: Service Date/Time: Tuesday, October 13, 2016 16:05 - CONCLUSION: 1. Mild positive fluid balance. 2. Improved bilateral lower lobe airspace disease. Theodore Zavala MD Assessment and Plan Assessment and Plan 1. Dyspnea, cough: Likely multifactorial. Patient has COPD and is on chronic oxygen at home, although he does not appear to be in exacerbation currently. Also with recent diagnosis of CHF. Echocardiogram on 09/14/16 showed EF of 40-45 % with diffuse hypokinesis. Continue diuresis with Lasix. Continue bronchodilators. 2. Coronary artery disease: Currently asymptomatic. Continue home medications including statin. 3. Hyperlipidemia: Continue statin. 4. GI prophylaxis: Protonix. 5. DVT prophylaxis: Lovenox. Problem Qualifiers (1) CHF exacerbation: Qualified Code: I50.9 - Acute on chronic congestive heart failure, unspecified congestive heart failure type (2) Pneumonia: Qualified Code: J18.9 - Pneumonia of both lower lobes due to infectious organism Daniel Zurita MD Oct 14, 2016 09:03
[2016-10-14] MEDS: PANTOPRAZOLE SOD 40 MG DELAYED RELEASE TAB PO SCH (09:35)
[2016-10-14] MEDS: FUROSEMIDE 20 MG/2 ML VIAL IV PUSH SCH ×2 (09:41→16:55)
[2016-10-14] MEDS: SERTRALINE HCL 100 MG TAB PO SCH (09:41)
[2016-10-14] MEDS: SUCRALFATE 1 GM TAB PO SCH ×4 (09:41→23:19)
[2016-10-14] MEDS: DOCUSATE SODIUM 50 MG/SENNA 8.6 MG TAB PO SCH ×2 (09:41→21:00)
[2016-10-14] MEDS: ALPRAZolam 0.5 MG TAB PO PRN (09:52)
[2016-10-14] MEDS ORDERED: RESP: ALBUTEROL 2.5 MG/3 ML NEB (PRN) NEB (10:00)
[2016-10-14] MEDS: POTASSIUM CHLORIDE 10 MEQ CAP PO SCH (10:17)
[2016-10-14] MEDS: RESP: ALBUTEROL 2.5 MG/IPRATROPIUM 0.5 MG NEB (SCH) NEB ×3 (11:56→19:40)
[2016-10-14] MEDS: ENOXAPARIN SODIUM 40 MG/0.4 ML SYRINGE SQ SCH (16:54)
--- NOTE | 2016-10-14 17:54 | EKG ---
Date Performed: 10/13/2016 Time Performed: 16:10:22 PTAGE: 86 years EKG: Indeterminate rhyth, secondary to significant wandering artifact. Rhythm irregularities sug gest a atrial fibrillation however. NONSPECIFIC T-WAVE ABNORMALITY ABNORMAL RHYTHM ECG PREVIOUS TRACING : 09/14/2016 19.47 DOCTOR: Paddy Pritchett Interpretating Date/Time 10/14/2016 17:53:05
[2016-10-14] MEDS: ATORVASTATIN 40 MG TAB PO SCH (22:27)
[2016-10-15] VITALS: BP 117/56; PULSE 97; RESP 18; TEMP 99.1; O2SAT 96
[2016-10-15 04:00] VITALS: BP 139/76; PULSE 88; RESP 18; TEMP 98.4; O2SAT 98
[2016-10-15 08:00] VITALS: BP 116/58; PULSE 96; RESP 20; TEMP 97.3; O2SAT 95
[2016-10-15] MEDS: RESP: ALBUTEROL 2.5 MG/IPRATROPIUM 0.5 MG NEB (SCH) NEB ×3 (08:10→16:00)
[2016-10-15 08:12] VITALS: O2SAT 96
[2016-10-15] MEDS: DOCUSATE SODIUM 50 MG/SENNA 8.6 MG TAB PO SCH (08:24)
[2016-10-15] MEDS: POTASSIUM CHLORIDE 10 MEQ CAP PO SCH (08:24)
[2016-10-15] MEDS: PANTOPRAZOLE SOD 40 MG DELAYED RELEASE TAB PO SCH (08:25)
[2016-10-15] MEDS: SUCRALFATE 1 GM TAB PO SCH ×3 (08:25→17:34)
[2016-10-15] MEDS: SERTRALINE HCL 100 MG TAB PO SCH (08:25)
[2016-10-15] MEDS: FUROSEMIDE 20 MG/2 ML VIAL IV PUSH SCH ×2 (08:25→17:36)
[2016-10-15] MEDS: SODIUM CHLORIDE 0.9% FLUSH 10 ML FLUSH IV FLUSH SCH (08:28)
--- NOTE | 2016-10-15 10:19 | HHI.PR ---
Subjective Remarks Follow-up dyspnea, CHF. Patient states that his breathing is "as good as it's going to get for 86 years old". Denies chest pain. Feels that he is ready to go home. Objective Vitals Vital Signs Date Time Temp Pulse Resp B/P Pulse Ox O2 Delivery O2 Flow Rate FiO2 10/15/16 08:12 96 Nasal Cannula 2.00 10/15/16 08:00 97.3 96 20 116/58 95 10/15/16 04:00 98.4 88 18 139/76 98 10/15/16 00:00 99.1 97 18 117/56 96 10/14/16 22:00 102 10/14/16 20:01 99.4 101 18 134/62 96 10/14/16 19:40 95 Nasal Cannula 2.00 10/14/16 16:00 96.7 87 18 112/68 100 10/14/16 12:00 97.7 90 18 103/59 18 I/O 10/14/16 10/14/16 10/14/16 10/15/16 10/15/16 10/15/16 07:00 15:00 23:00 07:00 15:00 23:00 Intake Total 770 ml 240 ml Output Total 1400 ml 1000 ml 250 ml Balance -1400 ml 770 ml -1000 ml -10 ml Intake Oral 770 ml 240 ml Output Urine Total 1400 ml 1000 ml 250 ml # Bowel Movements 1 0 Result Diagram: 10/13/16 1615 10/14/16 0431 Imaging Last Impressions Chest X-Ray 10/13/16 1601 Signed Impressions: Service Date/Time: Thursday, October 13, 2016 16:05 - CONCLUSION: 1. Mild positive fluid balance. 2. Improved bilateral lower lobe airspace disease. Theodore Zavala MD Objective Remarks General: Elderly male in no acute distress. Heart: Regular rate and rhythm. No murmur. Lungs: Mild scattered wheeze. Mild basilar crackles. Breathing is nonlabored. Abdomen: Soft, nontender, nondistended. Extremities: 2+ bilateral lower extremity edema, slightly improved. Psych: Alert and oriented. Procedures None Urinary Catheter: No Vascular Central Line Catheter: No A/P Problem List: (1) CHF exacerbation ICD Code: I50.9 Status: Acute (2) Dyspnea on exertion ICD Code: R06.09 Status: Acute (3) Pneumonia ICD Code: J18.9 Status: Acute (4) COPD (chronic obstructive pulmonary disease) ICD Code: J44.9 Status: Chronic (5) Hyperlipidemia ICD Code: E78.5 Status: Chronic Assessment and Plan 1. Dyspnea, cough: Likely multifactorial. Patient has COPD and is on chronic oxygen at home, although he does not appear to be in exacerbation currently. Also with recent diagnosis of CHF. Echocardiogram on 09/14/16 showed EF of 40-45 % with diffuse hypokinesis. Diuresing well. Swelling is improving. Continue bronchodilators. 2. Coronary artery disease: Currently asymptomatic. Continue home medications including statin. 3. Hyperlipidemia: Continue statin. 4. GI prophylaxis: Protonix. 5. DVT prophylaxis: Lovenox. 6. Generalized weakness: Patient was max assist yesterday. I spoke with physical therapy, who worked with the patient this morning. He is now assist of 1, and did well with transfer from bed to wheelchair. Plan for home health physical therapy at the [facility]. Discharge Planning Discharge to [facility] in stable condition. Heart healthy diet. Activity with assistance. Problem Qualifiers (1) CHF exacerbation: Qualified Code: I50.9 - Acute on chronic congestive heart failure, unspecified congestive heart failure type (2) Pneumonia: Qualified Code: J18.9 - Pneumonia of both lower lobes due to infectious organism Daniel Zurita MD Oct 15, 2016 10:19
[2016-10-15] MEDS ORDERED: LISI2.5T3 PO (10:23)
--- NOTE | 2016-10-15 10:24 | HHI.DCPOC ---
Discharge Care Plan Diagnosis: (1) CHF exacerbation (2) Dyspnea on exertion (3) Hyperlipidemia (4) COPD (chronic obstructive pulmonary disease) (5) Pneumonia Goals to Promote Your Health * To prevent worsening of your condition and complications * To maintain your health at the optimal level Directions to Meet Your Goals Take your medications as prescribed Follow your dietary instruction Follow activity as directed Keep your appointments as scheduled Take your immunizations and boosters as scheduled If your symptoms worsen call your PCP, if no PCP go to Urgent Care Center or Emergency Room Smoking is Dangerous to Your Health. Avoid second hand smoke Call the 24-hour hour crisis hotline for domestic abuse at Daniel Zurita MD Oct 15, 2016 10:24
--- NOTE | 2016-10-15 10:25 | HHI.FF ---
Face to Face Verification Diagnosis: (1) CHF exacerbation (2) Dyspnea on exertion (3) Hyperlipidemia (4) Pneumonia (5) Weakness Physical Therapy Order: Evaluate and Treat I have seen patient Jaydon Velazquez on 10/15/16. My clinical findings support the need for the requested home health care services because: Patient has SOB I certify that my clinical findings support that this patient is homebound because: Hx COPD- exertion dyspnea/weakness Unsteady gait/balance Daniel Zurita MD Oct 15, 2016 10:25
[2016-10-15 12:00] VITALS: BP 108/72; PULSE 85; RESP 18; TEMP 97.1; O2SAT 95
[2016-10-15] MEDS ORDERED: BENZ1CAP8 PO (14:27)
[2016-10-15 16:00] VITALS: BP 135/78; PULSE 90; RESP 18; TEMP 97.1; O2SAT 98
[2016-10-15] MEDS: ALPRAZolam 0.5 MG TAB PO PRN (16:52)
[2016-10-15] MEDS: ENOXAPARIN SODIUM 40 MG/0.4 ML SYRINGE SQ SCH (17:35)
--- NOTE | 2016-10-15 23:00 | EKG ---
Date Performed: 10/14/2016 Time Performed: 04:06:23 PTAGE: 86 years EKG: ATRIAL FIBRILLATION WITH ABERRANT CONDUCTION OR VENTRICULAR PREMATURE COMPLEXES SEPTAL MYOC ARDIAL INFARCTION ABNORMAL ECG PREVIOUS TRACING : 10/13/2016 21.56 DOCTOR: Eveline Vigil Interpretating Date/Time 10/15/2016 22:59:53
--- NOTE | 2016-10-15 23:01 | EKG ---
Date Performed: 10/13/2016 Time Performed: 21:56:18 PTAGE: 86 years EKG: ATRIAL FIBRILLATION WITH ABERRANT CONDUCTION OR VENTRICULAR PREMATURE COMPLEXES ABNORMAL [facility] ECG PREVIOUS TRACING : 10/13/2016 16.10 DOCTOR: Eveline Vigil Interpretating Date/Time 10/15/2016 23:00:15
== END 2016-10-15 19:20 | DRG 291 ==
LOC: PHED 14:55 → PHEDA 17:17 → PH3B 18:14 → OBSVTOIN 10-14 09:33
PROVIDERS: ADMIT Family Medicine; ATTEND Family Medicine
DX: I50.9 Heart failure, unspecified (principal); J18.9 Pneumonia, unspecified organism; J44.0 Chronic obstructive pulmonary disease with (acute) lower respiratory infection; Z99.81 Dependence on supplemental oxygen; I48.91 Unspecified atrial fibrillation; Z95.1 Presence of aortocoronary bypass graft; I25.810 Atherosclerosis of coronary artery bypass graft(s) without angina pectoris; E78.5 Hyperlipidemia, unspecified; Z95.5 Presence of coronary angioplasty implant and graft; Z98.1 Arthrodesis status; H91.90 Unspecified hearing loss, unspecified ear
CPT/HCPCS: 71010; 80048; 80053; 82550; 83880; 84484; 85025; 85610; 85730; 87040; 87804; 93005; 94640; 94664; 96374; 96375; G0378; J1650; J1940; J1956

== ENCOUNTER 2016-11-01 13:37 | Inpatient (IN) | payer MEDICARE ==
[~2016-11-01] VITALS: Ht 193 cm; Wt 82.6 kg
[~2016-11-01 13:37] MED LIST changes: +ALPR.5 PO; +BENZ1CAP8 PO; +FURO20TA PO; +LISI2.5T3 PO; -MULT1CHW70; +POTA10CA PO
[2016-11-01 13:41] VITALS: BP 109/56; PULSE 94; RESP 22; TEMP 97.8; O2SAT 92
[2016-11-01 14:08] VITALS: BP 109/56; PULSE 94; RESP 18; TEMP 97.8; O2SAT 94
[2016-11-01 14:27] VITALS: O2SAT 96
[2016-11-01 14:37] LABS: AUTOMATED NEUTROPHIL # 6.2 TH/MM3 (1.8-7.7); BASOPHIL % 0.4 % (0.0-2.0); EOSINOPHIL # 0.2 TH/MM3 (0-0.4); HEMATOCRIT 28.9 % (39.0-51.0); HEMO FLAGS DIFF FINAL; LYMPH % 15.6 % (9.0-44.0); LYMPHOCYTE # 1.3 TH/MM3 (1.0-4.8); MEAN CELL VOLUME 82.7 FL (80.0-100.0); MEAN CORPUSCULAR HGB CONC 31.4 % (32.0-36.0); PLATELET COUNT 442 TH/MM3 (150-450); RED BLOOD COUNT 3.49 MIL/MM3 (4.50-5.90); RED CELL DISTRIBUTION WIDTH 16.1 % (11.6-17.2); WHITE BLOOD COUNT 8.5 TH/MM3 (4.0-11.0)
[2016-11-01 14:45] LABS: POTASSIUM 3.4 MEQ/L (3.5-5.1)
[2016-11-01 14:48] LABS: BICARBONATE 27.9 MEQ/L (21.0-32.0)
--- NOTE | 2016-11-01 15:00 | PD ---
HPI Chief Complaint: Altered Mental Status Time Seen by Provider: 14:43 Travel History International Travel<30 days: No Contact w/Intl Traveler<30days: No Traveled to known affect area: No History of Present Illness HPI This 86-year-old male comes from assisted living. He is here with his lives in the same facility that she is in the independent living section. She says that he's been short of breath. He has been coughing. He said periods of confusion which seemed to be getting worse. He went to physical therapy today and was not able to walk. The physical therapist that he was not talking clearly. His said his urine has been dark smelly. He was on antibiotic for urinary tract action about 10 days ago he has been admitted to the hospital 2 months ago with a GI bleed. He was on sucralfate that caused him a lot of diarrhea. He stopped smoking in 1987. He had bypass surgery in 2007 and 2 stents in 2012. PFSH Past Medical History Hx Anticoagulant Therapy: Yes (ASPIRIN ) Asthma: Yes Atrial Fibrillation: Yes Heart Rhythm Problems: No Cancer: No Cardiovascular Problems: Yes (CABG x3 2007; STENT x2 2012) High Cholesterol: Yes Chemotherapy: No Chest Pain: No Congestive Heart Failure: Yes COPD: Yes Diminished Hearing: Yes ([place]) Endocrine: No Gastrointestinal Disorders: Yes GERD: Yes Genitourinary: Yes Hiatal Hernia: No Hypertension: Yes Immune Disorder: No Implanted Vascular Access Dvce: Yes Kidney Stones: No Musculoskeletal: No Neurologic: No Psychiatric: No Reproductive: No Respiratory: Yes (COPD) Pneumonia: Yes Radiation Therapy: No Renal Failure: No Sleep Apnea: No Ulcer: No Tetanus Vaccination: > 5 Years Influenza Vaccination: Yes Past Surgical History Body Medical Devices: rods on legs Cardiac Surgery: Yes (CABG x3; STENT x2) Ear Surgery: No Endocrine Surgery: No Eye Surgery: No Genitourinary Surgery: No Gynecologic Surgery: No Oral Surgery: No Thoracic Surgery: Yes (SPINAL FUSION) Other Surgery: Yes Social History Alcohol Use: No (FORMERLY OFTEN ) Tobacco Use: No (QUIT 1987) Substance Use: No Allergies-Medications (Allergen,Severity, Reaction): Coded Allergies: *MDRO Multi-Drug Resistant Organism (Verified Adverse Reaction, Unknown, ) MRSA PCR screen POSITIVE 09/14/16 Reported Meds & Prescriptions Reported Meds & Active Scripts Active Lisinopril 2.5 Mg Tab 2.5 Mg PO DAILY Protonix (Pantoprazole Sodium) 40 Mg Tab 40 Mg PO DAILY Sucralfate 1 Gm Tab 1 Gm PO QID on empty stomach Duoneb (Ipratropium-Albuterol Neb) 0.5-2.5 Mg/3 Ml Neb 1 Ampule INH Q2HR NEB PRN Reported Xanax (Alprazolam) 0.5 Mg Tab 0.5 Mg PO Q6H PRN Potassium Chloride ER (Potassium Chloride) 10 Meq Cap 10 Meq PO DAILY Furosemide 20 Mg Tab 20 Mg PO DAILY Glucosamine Chondroitin (Zipsirxtcea-Ropzuskymoc-Mdi C-) 1 Cap Cap Sertraline (Sertraline HCl) 100 Mg Tab 100 Mg PO DAILY Atorvastatin (Atorvastatin Calcium) 40 Mg Tab 40 Mg PO HS Review of Systems General / Constitutional: No: Fever, Chills Eyes: No: Diploplia, Blurred Vision HENT: No: Headaches Cardiovascular: No: Chest Pain or Discomfort Respiratory: Positive: Cough, Shortness of Breath Gastrointestinal: No: Vomiting, Diarrhea Genitourinary: Positive: Frequency, Decreased Urinary Output Musculoskeletal: No: Myalgias, Arthralgias Skin: No Rash, No Itching Neurologic: No: Weakness, Dizziness Endocrine: No: Heat Intolerance Hematologic/Lymphatic: No: Easy Bruising Physical Exam Narrative GENERAL: Thin elderly male SKIN: Focused skin assessment warm/dry. HEAD: Atraumatic. Normocephalic. EYES: Pupils equal and round. No scleral icterus. No injection or drainage. ENT: No nasal bleeding or discharge. Mucous membranes pink and moist. NECK: Trachea midline. There is jugular venous distention CARDIOVASCULAR: Regular rate and rhythm. No murmur appreciated. RESPIRATORY: No accessory muscle use. There are bibasilar rales GASTROINTESTINAL: Abdomen soft, non-tender, nondistended. Hepatic and splenic margins not palpable. MUSCULOSKELETAL: No obvious deformities. No clubbing. No cyanosis. There is bilateral pedal edema NEUROLOGICAL: Awake and alert. No obvious cranial nerve deficits. Motor grossly within normal limits. Normal speech. PSYCHIATRIC: Patient is cooperative. He is not oriented to the date. Data Data Last Documented VS Vital Signs Date Time Temp Pulse Resp B/P Pulse Ox O2 Delivery O2 Flow Rate FiO2 11/01/16 14:27 96 Nasal Cannula 2 11/01/16 14:08 97.8 94 18 109/56 Orders Complete Blood Count With Diff (11/01/16 14:25) Basic Metabolic Panel (Bmp) (11/01/16 14:25) Chest, Pa & Lat (11/01/16 14:25) Blood Culture (11/01/16 14:25) Iv Access Insert/Monitor (11/01/16 14:25) Ecg Monitoring (11/01/16 14:25) Oxygen Administration (11/01/16 14:25) Oximetry (11/01/16 14:25) Electrocardiogram (11/01/16 14:25) Troponin I (11/01/16 14:54) B-Type Natriuretic Peptide (11/01/16 14:54) Prothrombin Time / Inr (Pt) (11/01/16 14:54) Act Partial Throm Time (Ptt) (11/01/16 14:54) Hepatic Functional Panel (11/01/16 14:54) Urinalysis - C+S If Indicated (11/01/16 14:54) Magnesium (Mg) (11/01/16 14:54) Thyroid Stimulating Hormone (11/01/16 14:54) Ct Brain W/O Iv Contrast(Rout) (11/01/16 14:54) Furosemide Inj (Lasix Inj) (11/01/16 15:30) Urinary Catheter Insert/Apply (11/01/16 15:37) Potassium Chloride (Kcl) (11/01/16 16:00) Urine Culture (11/01/16 15:50) Labs Laboratory Tests Test 11/01/16 11/01/16 14:30 15:50 White Blood Count 8.5 TH/MM3 Red Blood Count 3.49 MIL/MM3 Hemoglobin 9.1 GM/DL Hematocrit 28.9 % Mean Corpuscular Volume 82.7 FL Mean Corpuscular Hemoglobin 26.0 PG Mean Corpuscular Hemoglobin 31.4 % Concent Red Cell Distribution Width 16.1 % Platelet Count 442 TH/MM3 Mean Platelet Volume 7.4 FL Neutrophils (%) (Auto) 73.0 % Lymphocytes (%) (Auto) 15.6 % Monocytes (%) (Auto) 9.0 % Eosinophils (%) (Auto) 2.0 % Basophils (%) (Auto) 0.4 % Neutrophils # (Auto) 6.2 TH/MM3 Lymphocytes # (Auto) 1.3 TH/MM3 Monocytes # (Auto) 0.8 TH/MM3 Eosinophils # (Auto) 0.2 TH/MM3 Basophils # (Auto) 0.0 TH/MM3 CBC Comment DIFF FINAL Differential Comment Prothrombin Time 12.7 SEC Prothromb Time International 1.1 RATIO Ratio Activated Partial 28.7 SEC Thromboplast Time Sodium Level 142 MEQ/L Potassium Level 3.4 MEQ/L Chloride Level 105 MEQ/L Carbon Dioxide Level 27.9 MEQ/L Anion Gap 9 MEQ/L Blood Urea Nitrogen 13 MG/DL Creatinine 0.67 MG/DL Estimat Glomerular Filtration 112 ML/MIN Rate Random Glucose 106 MG/DL Calcium Level 8.3 MG/DL Magnesium Level 1.7 MG/DL Total Bilirubin 0.6 MG/DL Direct Bilirubin 0.2 MG/DL Indirect Bilirubin 0.4 MG/DL Aspartate Amino Transf 28 U/L (AST/SGOT) Alanine Aminotransferase 22 U/L (ALT/SGPT) Alkaline Phosphatase 93 U/L Troponin I 0.04 NG/ML B-Type Natriuretic Peptide 521 PG/ML Total Protein 6.9 GM/DL Albumin 2.7 GM/DL Thyroid Stimulating Hormone 0.765 uIU/ML 3rd Gen Urine Color YELLOW Urine Turbidity CLOUDY Urine pH 6.0 Urine Specific [place] 1.025 Urine Protein TRACE mg/dL Urine Glucose (UA) NEG mg/dL Urine Ketones TRACE mg/dL Urine Occult Blood NEG Urine Nitrite POS Urine Bilirubin NEG Urine Leukocyte Esterase SMALL Urine WBC 25-49 /hpf Urine WBC Clumps FEW Urine Squamous Epithelial 0-5 /hpf Cells Urine Bacteria MANY /hpf Microscopic Urinalysis Comment CULTURE INDICATED MDM Medical Decision Making Medical Screen Exam Complete: Yes Emergency Medical Condition: Yes Medical Record Reviewed: Yes Differential Diagnosis Differential includes COPD, CHF, subdural hematoma, electrolyte imbalance Narrative Course CT of the brain shows cerebral atrophy. Chest x-ray shows some pulmonary vascular congestion. Patient was unable to urinate a Coreas catheter was inserted 200 cc obtained. BNP is 521. Sodium 142 with potassium of 3.4. Urinalysis does show 25-49 wbc's. UTI may explain some of his delirium. Diagnosis Primary Impression: CHF exacerbation Qualified Code: I50.9 - Acute on chronic congestive heart failure, unspecified congestive heart failure type Additional Impression: UTI (urinary tract infection) Qualified Code: N30.00 - Acute cystitis without hematuria Admitting Information Admitting Physician Requests: Admit Pipo Santos MD 3, 2017 15:00
[2016-11-01 15:23] LABS: MAGNESIUM 1.7 MG/DL (1.5-2.5)
[2016-11-01 15:28] LABS: INDIRECT BILIRUBIN 0.4 MG/DL (0.0-0.8); TOTAL BILIRUBIN ADULT 0.6 MG/DL (0.2-1.0)
[2016-11-01] MEDS ORDERED: FUROSEMIDE 40 MG/4 ML VIAL IV PUSH ONE (15:30)
[2016-11-01 15:33] LABS: APTT (PATIENT) 28.7 SEC (24.3-30.1); INTERNATIONAL NORMALIZED RATIO 1.1 RATIO; PROTHROMBIN TIME - PATIENT 12.7 SEC (9.8-11.6)
--- NOTE | 2016-11-01 15:47 | RADRPT ---
EXAM DATE/TIME: 11/01/2016 15:11 [facility] COMPARISON: No previous studies available for comparison. INDICATIONS : Slurred speech, confusion and weakness. RADIATION DOSE: 60.51 CTDIvol (mGy) MEDICAL HISTORY : Cardiovascular disease. Congestive heart failure. Hypertension.Anticoagulant therapy. SURGICAL HISTORY : CABG Coronary artery stent. ENCOUNTER: Initial ACUITY: 1 day PAIN SCALE: 0/10 LOCATION: cranial TECHNIQUE: Multiple contiguous axial images were obtained of the head. Using automated exposure control and adj ustment of the mA and/or kV according to patient size, radiation dose was kept as low as reasonably a chievable to obtain optimal diagnostic quality images. DICOM format image data is available electro nically for review and comparison. FINDINGS: CEREBRUM: There is moderate diffuse cerebral volume loss. The ventricles are slightly out of proportion in size to degree of atrophy. Moderate periventricular white matter hypodensities consistent with ischemic w jessica matter demyelination. No evidence of midline shift, mass lesion, hemorrhage or acute infarction. No extra-axial fluid collections are seen. POSTERIOR FOSSA: The cerebellum and brainstem are intact. The 4th ventricle is midline. The cerebellopontine angle i s unremarkable. EXTRACRANIAL: The visualized portion of the orbits is intact. SKULL: The calvaria is intact. No evidence of skull fracture. Opacification of the left maxillary sinus. CONCLUSION: 1. Moderate cerebral atrophy with ventricles that appear slightly out of proportion in size to degree of atrophy. Clinical correlation for normal pressure hydrocephalus is recommended. 2. Otherwise, no acute intracranial abnormality. Theodore Zavala MD on November 01, 2016 at 15:41 Board Certified Radiologist. This report was verified electronically.
--- NOTE | 2016-11-01 15:55 | RADRPT ---
EXAM DATE/TIME: 11/01/2016 14:44 [facility] COMPARISON: CHEST SINGLE AP, October 13, 2016, 16:05. INDICATIONS : Short of breath. MEDICAL HISTORY : Chronic obstructive pulmonary disease. SURGICAL HISTORY : Coronary artery stent. CABG. ENCOUNTER: Initial ACUITY: >1 year PAIN SCORE: 8/10 LOCATION: Bilateral chest FINDINGS: Median sternotomy wires in place. Right axilla is mildly enlarged. The vascularity is indistinct. Dif fuse interstitial prominence with small left and likely trace right pleural effusions with associated airspace disease in the lower lobes. Bony thorax is intact. CONCLUSION: 1. Mild pulmonary vascular congestion pattern. 2. Small left and likely trace right pleural effusions with associated bilateral lower lobe airspace disease. Theodore Zavala MD on November 01, 2016 at 15:50 Board Certified Radiologist. This report was verified electronically.
[2016-11-01 15:59] LABS: BLOOD, URINE NEG (NEG); GLUCOSE,URINE NEG (NEG); KETONE, URINE TRACE mg/dL (NEG)
[2016-11-01 16:00] LABS: NITRITE,URINE POS (NEG)
[2016-11-01] MEDS ORDERED: POTASSIUM CHLORIDE 20 MEQ CONTROLLED RELEASE TAB PO ONE (16:00)
[2016-11-01 16:04] LABS: URINE COLOR YELLOW (YELLW/STRAW)
[2016-11-01 16:05] LABS: BACTERIA, URINE MANY /hpf; COMMENT (UR) CULTURE INDICATED; CULTURE IF INDICATED CULTURE INDICATED; SQUAMOUS EPITHELIAL CELL URINE 0-5 /hpf (0-5)
[2016-11-01] MEDS ORDERED: cefTRIAXone INJ 1,000 MG in SODIUM CHLORIDE 0.9% INJ 100 ML IV ONE (16:30)
[2016-11-01 17:09] VITALS: BP 131/55; PULSE 83; RESP 20; O2SAT 98
[2016-11-01] MEDS ORDERED: SODIUM CHLORIDE 0.9% FLUSH 10 ML FLUSH IV FLUSH PRN (17:15)
[2016-11-01] MEDS ORDERED: ACETAMINOPHEN 325 MG TAB PO PRN (17:15)
--- NOTE | 2016-11-01 17:33 | HHI.HP ---
[facility] Moisés Sampson M.D. Admission Diagnosis CHF, UTI Diagnoses: Chief Complaint: Increased short of breath and dysuria Travel History International Travel<30 Days: No Contact w/Intl Traveler <30 Da: No Traveled to Known Affected Are: No History of Present Illness Patient is a 86-year-old gentleman with a known history of ischemic cardiomyopathy and systolic heart failure. Patient was recently in the hospital for treatment of the same. He did come to the emergency room with his because he was having slurred speech and sleeping more than usual. Patient also was complaining of urgency and frequency and was found here to have urinary tract infection and started on empiric antibiotics. His urine has been dark and foul-smelling according to his . 10 days ago he was treated for urinary tract infection empirically and noted that the urine cleared up. He also has been increasingly weak with dyspnea on exertion and orthopnea. His reports 10 pound weight loss within the last month to month and a half. The patient has not been eating well. Patient says he is too tired to eat and his urine Review of Systems Constitutional: DENIES: Diaphoretic episodes, Fatigue, Fever, Weight gain, Weight loss, Chills, Dizziness, Change in appetite, Night Sweats Endocrine: DENIES: Heat/cold intolerance, Polydipsia, Polyuria, Polyphagia Eyes: DENIES: Blurred vision, Diplopia, Eye inflammation, Eye pain, Vision loss , Photosensitivity, Double Vision Ears, nose, mouth, throat: DENIES: Tinnitus, Hearing loss, Vertigo, Nasal discharge, Oral lesions, Throat pain, Hoarseness, Ear Pain, Running Nose, Epistaxis, Sinus Pain, Toothache, Odynophagia Respiratory: DENIES: Apneas, Cough, Snoring, Wheezing, Hemoptysis, Sputum production, Shortness of breath Cardiovascular: COMPLAINS OF: Dyspnea on Exertion, Lower Extremity Edema, Orthopnea, DENIES: Chest pain, Palpitations, Syncope, PND, Claudication Gastrointestinal: DENIES: Abdominal pain, Black stools, Bloody stools, Constipation, Diarrhea, Nausea, Vomiting, Difficulty Swallowing, Anorexia Genitourinary: COMPLAINS OF: Urinary frequency, Urgency, Dysuria, DENIES: Sexual dysfunction, Urinary incontinence, Hematuria, Nocturia, Penile Discharge , Testicular Pain, Testicular Swelling Musculoskeletal: DENIES: Joint pain, Muscle aches, Stiffness, Joint Swelling, Back pain, Neck pain Integumentary: DENIES: Abnormal pigmentation, Nail changes, Pruritus, Rash Hematologic/lymphatic: DENIES: Bruising, Lymphadenopathy Neurologic: DENIES: Abnormal gait, Headache, Localized weakness, Paresthesias, Seizures, Speech Problems, Tremor, Poor Balance Psychiatric: DENIES: Anxiety, Confusion, Mood changes, Depression, Hallucinations, Agitation, Suicidal Ideation, Homicidal Ideation, Delusions Past Family Social History Allergies: Coded Allergies: *MDRO Multi-Drug Resistant Organism (Verified Adverse Reaction, Unknown, ) MRSA 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 Cool and dry. HEAD: Atraumatic. Normocephalic. No temporal or scalp tenderness. EYES: Pupils equal round and reactive. Extraocular motions intact. No scleral icterus. No injection or drainage. ENT: Nose without bleeding, purulent drainage or septal hematoma. Throat without erythema, tonsillar hypertrophy or exudate. Uvula midline. Airway patent. NECK: Trachea midline. No JVD or lymphadenopathy. Supple, nontender, no meningeal signs. CARDIOVASCULAR: Regular rate and rhythm without murmurs, gallops, or rubs. RESPIRATORY: Clear to auscultation. Breath sounds equal bilaterally. No wheezes , rales, or rhonchi. GASTROINTESTINAL: Abdomen soft, non-tender, nondistended. No hepato-splenomegaly , or palpable masses. No guarding. MUSCULOSKELETAL: Extremities without clubbing, cyanosis, there is bilateral lower show any edema. No joint tenderness, effusion, or edema noted. No calf tenderness. Negative Homans sign bilaterally. NEUROLOGICAL: Awake and alert. Cranial nerves II through XII intact. Motor and sensory grossly within normal limits. Five out of 5 muscle strength in all muscle groups. Normal speech. Laboratory Laboratory Tests Test 11/01/16 11/01/16 14:30 15:50 White Blood Count 8.5 Red Blood Count 3.49 Hemoglobin 9.1 Hematocrit 28.9 Mean Corpuscular Volume 82.7 Mean Corpuscular Hemoglobin 26.0 Mean Corpuscular Hemoglobin 31.4 Concent Red Cell Distribution Width 16.1 Platelet Count 442 Mean Platelet Volume 7.4 Neutrophils (%) (Auto) 73.0 Lymphocytes (%) (Auto) 15.6 Monocytes (%) (Auto) 9.0 Eosinophils (%) (Auto) 2.0 Basophils (%) (Auto) 0.4 Neutrophils # (Auto) 6.2 Lymphocytes # (Auto) 1.3 Monocytes # (Auto) 0.8 Eosinophils # (Auto) 0.2 Basophils # (Auto) 0.0 CBC Comment DIFF FINAL Differential Comment Prothrombin Time 12.7 Prothromb Time International 1.1 Ratio Activated Partial 28.7 Thromboplast Time Sodium Level 142 Potassium Level 3.4 Chloride Level 105 Carbon Dioxide Level 27.9 Anion Gap 9 Blood Urea Nitrogen 13 Creatinine 0.67 Estimat Glomerular Filtration 112 Rate Random Glucose 106 Calcium Level 8.3 Magnesium Level 1.7 Total Bilirubin 0.6 Direct Bilirubin 0.2 Indirect Bilirubin 0.4 Aspartate Amino Transf 28 (AST/SGOT) Alanine Aminotransferase 22 (ALT/SGPT) Alkaline Phosphatase 93 Troponin I 0.04 B-Type Natriuretic Peptide 521 Total Protein 6.9 Albumin 2.7 Thyroid Stimulating Hormone 0.765 3rd Gen Urine Color YELLOW Urine Turbidity CLOUDY Urine pH 6.0 Urine Specific [place] 1.025 Urine Protein TRACE Urine Glucose (UA) NEG Urine Ketones TRACE Urine Occult Blood NEG Urine Nitrite POS Urine Bilirubin NEG Urine Leukocyte Esterase SMALL Urine WBC 25-49 Urine WBC Clumps FEW Urine Squamous Epithelial 0-5 Cells Urine Bacteria MANY Microscopic Urinalysis Comment CULTURE INDICATED Date/Time Procedure Status Source Growth 11/01/16 16:25 Aerobic Blood Culture Received Blood Peripheral Pending 11/01/16 16:25 Anaerobic Blood Culture Received Blood Peripheral Pending 11/01/16 15:50 Urine Culture Received Urine Clean Catch Pending Result Diagram: 11/01/16 1430 11/01/16 1430 Imaging Last Impressions Head CT 11/01/16 1454 Signed Impressions: Service Date/Time: Tuesday, November 01, 2016 15:11 - CONCLUSION: 1. Moderate cerebral atrophy with ventricles that appear slightly out of proportion in size to degree of atrophy. Clinical correlation for normal pressure hydrocephalus is recommended. 2. Otherwise, no acute intracranial abnormality. Theodore Zavala MD Chest X-Ray 11/01/16 1425 Signed Impressions: Service Date/Time: Tuesday, November 01, 2016 14:44 - CONCLUSION: 1. Mild pulmonary vascular congestion pattern. 2. Small left and likely trace right pleural effusions with associated bilateral lower lobe airspace disease. Theodore Zavala MD Assessment and Plan Problem List: (1) UTI (urinary tract infection) ICD Code: N39.0 Status: Acute Plan: We'll continue with Rocephin and follow up cultures Patient recently was treated with antibiotic for 2 weeks for presumed UTI. Continue to follow for signs and symptoms of sepsis although this time the patient is quite stable (2) Weakness ICD Code: R53.1 Status: Acute Plan: Continue with PT eval, from an assisted living facility may require home health versus care home facility placement at discharge Rule out organic causes and treat urinary tract infection (3) Acute exacerbation of CHF (congestive heart failure) ICD Code: I50.9 Status: Acute Plan: BNP slightly elevated with increasing weakness and dyspnea on exertion, EF 08/2016 was 40%. Continue home medications in this patient with known ischemic cardiac myopathy My review chest x-ray does show some basilar congestion consistent with acute exacerbation of CHF continue Lasix with potassium and add beta aldo as patient will tolerate (4) Hypotension ICD Code: I95.9 Status: Acute Plan: Likely due to dehydration, hold home medications to prevent further hypotension. Continue surveillance (5) Anemia ICD Code: D64.9 Status: Acute Plan: With a history of GI bleed although not actively bleeding at this time. Continue with Carafate and Protonix. Follow hemoglobin Assessment and Plan Plan of care to be determined by Hospital course Code Status Full code Discussed Condition With Patient, GARRETT Cordova Physician Certification 2 Midnight Certification Type: Admission for Inpatient Services Order for Inpatient Services The services are ordered in accordance with Medicare regulations or non- Medicare payer requirements, as applicable. In the case of services not specified as inpatient-only, they are appropriately provided as inpatient services in accordance with the 2-midnight benchmark. Estimated LOS (days): 3 3 days is the estimated time the patient will need to remain in the hospital, assuming treatment plan goals are met and no additional complications. Post-Hospital Plan: Not yet determined Problem Qualifiers (1) UTI (urinary tract infection): Qualified Code: N30.00 - Acute cystitis without hematuria Ghazala Farrar MD Nov 01, 2016 17:33
[2016-11-01] MEDS ORDERED: PILL SPLITTER OTHER PRN (17:45)
[2016-11-01] MEDS: SUCRALFATE 1 GM TAB PO SCH ×2 (18:00→21:17)
[2016-11-01 20:00] VITALS: BP 137/57; PULSE 98; RESP 20; TEMP 97.3; O2SAT 90
[2016-11-01] MEDS: METOPROLOL TARTRATE 25 MG TAB PO SCH (21:18)
[2016-11-01] MEDS: ATORVASTATIN 40 MG TAB PO SCH (21:18)
[2016-11-01] MEDS: SODIUM CHLORIDE 0.9% FLUSH 10 ML FLUSH IV FLUSH SCH (21:18)
[2016-11-02] VITALS (7 sets, daily range): BP systolic 118–138; BP diastolic 61–80; PULSE 70–83; RESP 18–20; TEMP 96.1–97.8; O2SAT 94–97
[2016-11-02 06:31] LABS: AUTOMATED NEUTROPHIL # 9.1 TH/MM3 (1.8-7.7); BASOPHIL % 0.2 % (0.0-2.0); EOSINOPHIL # 0.1 TH/MM3 (0-0.4); EOSINOPHIL % 1.3 % (0.0-4.0); HEMATOCRIT 31.3 % (39.0-51.0); HEMO FLAGS DIFF FINAL; LYMPH % 8.7 % (9.0-44.0); LYMPHOCYTE # 0.9 TH/MM3 (1.0-4.8); MEAN CELL VOLUME 82.5 FL (80.0-100.0); MEAN CORPUSCULAR HEMOGLOBIN 25.5 PG (27.0-34.0); MEAN CORPUSCULAR HGB CONC 30.9 % (32.0-36.0); MONO % 7.6 % (0.0-8.0); NEUT % 82.2 % (16.0-70.0); PLATELET COUNT 437 TH/MM3 (150-450); RED BLOOD COUNT 3.79 MIL/MM3 (4.50-5.90); RED CELL DISTRIBUTION WIDTH 15.9 % (11.6-17.2); WHITE BLOOD COUNT 10.9 TH/MM3 (4.0-11.0)
[2016-11-02 06:48] LABS: POTASSIUM 3.5 MEQ/L (3.5-5.1)
[2016-11-02 06:51] LABS: BICARBONATE 30.9 MEQ/L (21.0-32.0)
[2016-11-02] MEDS ORDERED: POTASSIUM CHLORIDE 10 MEQ CAP PO SCH (09:00)
[2016-11-02] MEDS: METOPROLOL TARTRATE 25 MG TAB PO SCH ×2 (09:12→20:57)
[2016-11-02] MEDS: SUCRALFATE 1 GM TAB PO SCH ×4 (09:12→20:57)
[2016-11-02] MEDS: PANTOPRAZOLE SOD 40 MG DELAYED RELEASE TAB PO SCH (09:12)
[2016-11-02] MEDS: SERTRALINE HCL 100 MG TAB PO SCH (09:12)
[2016-11-02] MEDS: SODIUM CHLORIDE 0.9% FLUSH 10 ML FLUSH IV FLUSH SCH ×2 (09:13→21:00)
[2016-11-02] MEDS: POTASSIUM CHLORIDE 10 MEQ CONTROLLED RELEASE TAB PO SCH (11:42)
--- NOTE | 2016-11-02 11:50 | HHI.PR ---
Subjective Remarks Recent seen today in follow-up for weakness, UTI. Overall feeling better. Urine output is 1.8 L. Care plan discussed with patient and spouse at bedside Objective Vitals Vital Signs Date Time Temp Pulse Resp B/P Pulse Ox O2 Delivery O2 Flow Rate FiO2 11/02/16 08:00 97.7 82 18 138/77 94 11/02/16 04:00 97.1 83 20 130/68 94 11/02/16 00:00 96.1 78 20 118/61 96 11/01/16 20:00 97.3 98 20 137/57 90 11/01/16 17:09 83 20 131/55 98 Nasal Cannula 2 11/01/16 14:27 96 Nasal Cannula 2 11/01/16 14:27 96 Nasal Cannula 2 11/01/16 14:08 94 Nasal Cannula 2 11/01/16 14:08 97.8 94 18 109/56 94 Nasal Cannula 2 11/01/16 13:41 97.8 94 22 109/56 92 I/O 11/01/16 11/01/16 11/01/16 11/02/16 11/02/16 11/02/16 07:00 15:00 23:00 07:00 15:00 23:00 Intake Total 0 ml Output Total 900 ml 900 ml Balance -900 ml -900 ml Intake Oral 0 ml Output Urine Total 900 ml 900 ml # Voids 0 Result Diagram: 11/02/16 0615 11/02/16 0615 Objective Remarks GENERAL: This is a well-nourished, well-developed patient, in no apparent distress. CARDIOVASCULAR: Regular rate and rhythm without murmurs, gallops, or rubs. RESPIRATORY: Clear to auscultation. Breath sounds equal bilaterally. No wheezes , rales, or rhonchi. GASTROINTESTINAL: Abdomen soft, non-tender, nondistended. Normal active bowel sounds MUSCULOSKELETAL: Extremities without clubbing, cyanosis, or edema. NEURO: Alert & Oriented x4 to person, place, time, situation. Moves all ext x4 but is weak A/P Problem List: (1) UTI (urinary tract infection) ICD Code: N39.0 Status: Acute Plan: We'll continue with Rocephin and follow up cultures Patient recently was treated with antibiotic for 2 weeks for presumed UTI. Continue to follow for signs and symptoms of sepsis although this time the patient is quite stable (2) Weakness ICD Code: R53.1 Status: Acute Plan: from an assisted living facility may require home health versus care home facility placement at discharge (had pt hhc already with [facility]) Rule out organic causes and treat urinary tract infection PT eval pending (3) Acute exacerbation of CHF (congestive heart failure) ICD Code: I50.9 Status: Acute Plan: BNP slightly elevated with increasing weakness and dyspnea on exertion, EF 08/2016 was 40%. Continue home medications in this patient with known ischemic cardiac myopathy 1800 ml out continue Lasix with potassium and add beta aldo as patient will tolerate (4) Hypotension ICD Code: I95.9 Status: Acute Plan: improved follow closely with diuresis (5) Anemia ICD Code: D64.9 Status: Acute Plan: With a history of GI bleed although not actively bleeding at this time. Continue with Carafate and Protonix. Follow hemoglobin hg 9.7 Discharge Planning likely dc to residential in am Problem Qualifiers (1) UTI (urinary tract infection): Qualified Code: N30.00 - Acute cystitis without hematuria Ghazala Farrar MD Nov 02, 2016 11:49
--- NOTE | 2016-11-02 11:50 | HHI.FF ---
Face to Face Verification Diagnosis: (1) Acute exacerbation of CHF (congestive heart failure) (2) Hypotension (3) Weakness Physical Therapy Order: Evaluate and Treat, Improve ambulation Home Health Nursing Order: Medical education Signs/symptoms of disease process CHF education Medication education-adverse effect Nursing assessment with vital signs Manager Environmental Health And Safety Order: To Evaluate: Living conditions/environment Order: To Provide: Long range planning I have seen patient Jaydon Velazquez on 11/02/16. My clinical findings support the need for the requested home health care services because: Ltd mobility - disease progression Patient has SOB Impaired cognition/judgement I certify that my clinical findings support that this patient is homebound because: Impaired cognitive ability/safety Unsteady gait/balance Unsafe to leave home unassisted Need for psychosocial assistance Ghazala Farrar MD Nov 02, 2016 11:50
--- NOTE | 2016-11-02 13:28 | EKG ---
Date Performed: 11/01/2016 Time Performed: 14:37:39 PTAGE: 86 years EKG: ATRIAL FIBRILLATION WITH ABERRANT CONDUCTION OR VENTRICULAR PREMATURE COMPLEXES NONSPECIFIC T-WAVE ABNORMALITY ABNORMAL ECG PREVIOUS TRACING : 10/14/2016 04.06 Compared to prior tracing no significant change DOCTOR: Wilfred Linn Interpretating Date/Time 11/02/2016 13:20:52
[2016-11-02] MEDS: cefTRIAXone INJ 1,000 MG in SODIUM CHLORIDE 0.9% INJ 100 ML IV SCH (17:47)
[2016-11-02] MEDS: ATORVASTATIN 40 MG TAB PO SCH (20:57)
[2016-11-02] MEDS: RESP: ALBUTEROL 2.5 MG/IPRATROPIUM 0.5 MG NEB (PRN) NEB (21:06)
[2016-11-03] VITALS: BP 130/73; PULSE 87; RESP 18; TEMP 97.1; O2SAT 91
[2016-11-03] MEDS: RESP: ALBUTEROL 2.5 MG/IPRATROPIUM 0.5 MG NEB (PRN) NEB ×2 (04:23→10:41)
[2016-11-03] MEDS ORDERED: POTASSIUM CHLORIDE 20 MEQ CONTROLLED RELEASE TAB PO ONE (05:00)
[2016-11-03] MEDS ORDERED: FUROSEMIDE 40 MG/4 ML VIAL IV PUSH ONE (05:00)
[2016-11-03 08:39] VITALS: BP 123/66; PULSE 89; RESP 16; TEMP 97.6; O2SAT 99
[2016-11-03] MEDS: POTASSIUM CHLORIDE 10 MEQ CONTROLLED RELEASE TAB PO SCH (09:06)
[2016-11-03] MEDS: SODIUM CHLORIDE 0.9% FLUSH 10 ML FLUSH IV FLUSH SCH ×2 (09:06→19:56)
[2016-11-03] MEDS: SERTRALINE HCL 100 MG TAB PO SCH (09:06)
[2016-11-03] MEDS: SUCRALFATE 1 GM TAB PO SCH ×4 (09:06→19:56)
[2016-11-03] MEDS: METOPROLOL TARTRATE 25 MG TAB PO SCH ×2 (09:06→19:56)
[2016-11-03] MEDS: POTASSIUM CHLORIDE 20 MEQ CONTROLLED RELEASE TAB PO SCH (09:06)
[2016-11-03] MEDS: PANTOPRAZOLE SOD 40 MG DELAYED RELEASE TAB PO SCH (09:06)
--- NOTE | 2016-11-03 12:12 | HHI.PR ---
Subjective Remarks Patient seen today in follow-up for her UTI and weakness. Blood cultures 1 out of 2 are positive (is likely contaminant) however today patient is grossly short of breath and dyspneic with minimal exertion. Patient reports improvement with albuterol overnight. Objective Vitals Vital Signs Date Time Temp Pulse Resp B/P Pulse Ox O2 Delivery O2 Flow Rate FiO2 11/03/16 10:44 4.00 11/03/16 08:39 97.6 89 16 123/66 99 11/03/16 00:00 97.1 87 18 130/73 91 11/02/16 21:10 94 Nasal Cannula 2.00 11/02/16 20:00 97.8 70 18 138/68 97 11/02/16 16:00 97.7 81 19 128/79 96 11/02/16 12:00 97.5 77 18 133/80 95 11/02/16 12:00 97.5 77 18 133/80 95 I/O 11/02/16 11/02/16 11/02/16 11/03/16 11/03/16 11/03/16 07:00 15:00 23:00 07:00 15:00 23:00 Intake Total 0 ml 520 ml 240 ml Output Total 900 ml Balance -900 ml 520 ml 240 ml Intake Oral 0 ml 520 ml 240 ml Output Urine Total 900 ml # Voids 1 2 # Bowel Movements 1 0 Result Diagram: 11/02/16 0615 11/02/16 0615 Imaging Last Impressions Head CT 11/01/16 1454 Signed Impressions: Service Date/Time: Tuesday, November 01, 2016 15:11 - CONCLUSION: 1. Moderate cerebral atrophy with ventricles that appear slightly out of proportion in size to degree of atrophy. Clinical correlation for normal pressure hydrocephalus is recommended. 2. Otherwise, no acute intracranial abnormality. Theodore Zavala MD Chest X-Ray 11/01/16 1425 Signed Impressions: Service Date/Time: Tuesday, November 01, 2016 14:44 - CONCLUSION: 1. Mild pulmonary vascular congestion pattern. 2. Small left and likely trace right pleural effusions with associated bilateral lower lobe airspace disease. Theodore Zavala MD Objective Remarks GENERAL: This is a well-nourished, well-developed patient, purse lipped breathing with tachypnea CARDIOVASCULAR: Regular rate and rhythm without murmurs, gallops, or rubs. RESPIRATORY: Scattered wheezes GASTROINTESTINAL: Abdomen soft, non-tender, nondistended. Normal active bowel sounds MUSCULOSKELETAL: Extremities without clubbing, cyanosis, or edema. NEURO: Alert & Oriented x4 to person, place, time, situation. Moves all ext x4 but is weak A/P Problem List: (1) UTI (urinary tract infection) ICD Code: N39.0 Status: Acute Plan: We'll continue with Rocephin IV for now and likely Augmentin at D/C Patient recently was treated with antibiotic for 2 weeks for presumed UTI. Continue to follow for signs and symptoms of sepsis although this time the patient is quite stable (2) Weakness ICD Code: R53.1 Status: Acute Plan: Better from an assisted living facility may require home health versus long term facility placement at discharge (had pt hhc already with [facility]) Rule out organic causes and treat urinary tract infection PT eval pending (3) Acute exacerbation of CHF (congestive heart failure) ICD Code: I50.9 Status: Acute Plan: BNP slightly elevated with increasing weakness and dyspnea on exertion, EF 08/2016 was 40%. Continue home medications in this patient with known ischemic cardiac myopathy 1800 ml out continue Lasix with potassium and add beta aldo as patient will tolerate (4) Hypotension ICD Code: I95.9 Status: Resolved Plan: improved follow closely with diuresis (5) Anemia ICD Code: D64.9 Status: Resolved Plan: With a history of GI bleed although not actively bleeding at this time. Continue with Carafate and Protonix. Follow hemoglobin hg 9.7 (6) COPD (chronic obstructive pulmonary disease) ICD Code: J44.9 Status: Chronic Plan: Acute exacerbation of COPD, will add steroids and bronchodilators and continue supportive care Repeat chest x-ray pending (7) Positive blood culture ICD Code: R78.81 Status: Acute Plan: Continue IV Rocephin for now Rule out contaminant Discharge Planning DC to [facility] when stable Problem Qualifiers (1) UTI (urinary tract infection): Qualified Code: N30.00 - Acute cystitis without hematuria Ghazala Farrar MD Nov 03, 2016 12:12
[2016-11-03 12:24] VITALS: BP 117/63; PULSE 76; RESP 18; TEMP 96.7; O2SAT 95
[2016-11-03] MEDS: methylPREDNISolone SOD SUCC 40 MG/1 ML VIAL IV PUSH SCH ×2 (12:36→19:56)
[2016-11-03] MEDS: RESP: ALBUTEROL 2.5 MG/IPRATROPIUM 0.5 MG NEB (SCH) NEB ×2 (13:09→20:50)
--- NOTE | 2016-11-03 13:58 | RADRPT ---
EXAM DATE/TIME: 11/03/2016 13:11 [facility] COMPARISON: CHEST SINGLE AP, October 13, 2016, 16:05. INDICATIONS : Shortness of breath; COPD. MEDICAL HISTORY : Hypertension. Chronic obstructive pulmonary disease. Congestive heart failure. SURGICAL HISTORY : CABG. Cardiac stent. ENCOUNTER: Subsequent ACUITY: 2 days PAIN SCORE: 0/10 LOCATION: Bilateral chest FINDINGS: Median sternotomy wires in place. Di slightly increased diffuse ffuse interstitial prominence with lea spected trace right and small left pleural effusions and mild bibasilar airspace disease. Cardiomedia stinal contours are stable. Pulmonary vascularity is minimally prominent centrally. Remainder of the exam is unchanged. CONCLUSION: 1. Mildly increased diffuse interstitial prominence consistent with positive fluid balance. 2. Likely trace right and small left pleural effusions and associated lower lobe airspace disease, li kenisha atelectasis. Theodore Zavala MD on November 03, 2016 at 13:53 Board Certified Radiologist. This report was verified electronically.
[2016-11-03 17:13] VITALS: BP 110/69; PULSE 86; RESP 15; TEMP 98.2; O2SAT 98
[2016-11-03] MEDS: cefTRIAXone INJ 1,000 MG in SODIUM CHLORIDE 0.9% INJ 100 ML IV SCH (18:10)
[2016-11-03] MEDS: ATORVASTATIN 40 MG TAB PO SCH (19:56)
[2016-11-03 20:00] VITALS: BP 110/74; PULSE 80; RESP 20; TEMP 96.6; O2SAT 98
[2016-11-03 20:50] VITALS: O2SAT 95
[2016-11-04] VITALS (7 sets, daily range): BP systolic 107–124; BP diastolic 55–74; PULSE 76–95; RESP 15–22; TEMP 96–98.1; O2SAT 92–99
[2016-11-04 06:23] LABS: AUTOMATED NEUTROPHIL # 8.7 TH/MM3 (1.8-7.7); BASOPHIL % 0.2 % (0.0-2.0); EOSINOPHIL % 0.1 % (0.0-4.0); HEMATOCRIT 31.1 % (39.0-51.0); LYMPH % 6.8 % (9.0-44.0); LYMPHOCYTE # 0.7 TH/MM3 (1.0-4.8); MEAN CELL VOLUME 82.1 FL (80.0-100.0); MEAN CORPUSCULAR HEMOGLOBIN 26.3 PG (27.0-34.0); MONO % 6.1 % (0.0-8.0); NEUT % 86.8 % (16.0-70.0); PLATELET COUNT 439 TH/MM3 (150-450); RED BLOOD COUNT 3.79 MIL/MM3 (4.50-5.90); RED CELL DISTRIBUTION WIDTH 16.1 % (11.6-17.2)
[2016-11-04 06:24] LABS: HEMO FLAGS AUTO DIFF
[2016-11-04 06:34] LABS: POTASSIUM 3.9 MEQ/L (3.5-5.1)
[2016-11-04 06:39] LABS: BICARBONATE 31.2 MEQ/L (21.0-32.0)
[2016-11-04] MEDS: RESP: ALBUTEROL 2.5 MG/IPRATROPIUM 0.5 MG NEB (SCH) NEB ×3 (07:29→19:05)
[2016-11-04 07:30] LABS: PLATELET ESTIMATE SMEAR NORMAL (NORMAL); PLATELET MORPHOLOGY NORMAL (NORMAL); SCAN/DIFF AUTO DIFF CONFIRMED
[2016-11-04] MEDS: SUCRALFATE 1 GM TAB PO SCH ×4 (08:48→21:52)
[2016-11-04] MEDS: METOPROLOL TARTRATE 25 MG TAB PO SCH ×2 (08:48→21:52)
[2016-11-04] MEDS: POTASSIUM CHLORIDE 20 MEQ CONTROLLED RELEASE TAB PO SCH (08:48)
[2016-11-04] MEDS: PANTOPRAZOLE SOD 40 MG DELAYED RELEASE TAB PO SCH (08:48)
[2016-11-04] MEDS: FUROSEMIDE 20 MG TAB PO SCH (08:49)
[2016-11-04] MEDS: SERTRALINE HCL 100 MG TAB PO SCH (08:49)
--- NOTE | 2016-11-04 08:50 | HHI.PR ---
Subjective Remarks Very pleasant elderly patient, in bed, he doesn't appear in acute distress at this time. He doesn't feel short of breath at this time, says he is wheezing at times. He has a nonproductive cough. No fever or chills overnight. He is on oxygen, says he has oxygen at home as well. No fever or chills. No suprapubic pain. Objective Vitals Vital Signs Date Time Temp Pulse Resp B/P Pulse Ox O2 Delivery O2 Flow Rate FiO2 11/04/16 05:25 Nasal Cannula 6.00 11/04/16 00:00 96.8 81 20 113/68 96 11/03/16 20:50 95 Nasal Cannula 4.00 11/03/16 20:00 96.6 80 20 110/74 98 11/03/16 17:13 98.2 86 15 110/69 98 11/03/16 12:24 96.7 76 18 117/63 95 11/03/16 10:44 4.00 I/O 11/03/16 11/03/16 11/03/16 11/04/16 11/04/16 11/04/16 07:00 15:00 23:00 07:00 15:00 23:00 Intake Total 240 ml 1000 ml 480 ml Output Total 3000 ml 500 ml Balance 240 ml -2000 ml -20 ml Intake Oral 240 ml 1000 ml 480 ml Output Urine Total 3000 ml 500 ml # Voids 2 1 # Bowel Movements 0 2 1 Result Diagram: 11/04/16 0534 11/04/16 0534 Imaging Last Impressions Chest X-Ray 11/03/16 0000 Signed Impressions: Service Date/Time: Thursday, November 03, 2016 13:11 - CONCLUSION: 1. Mildly increased diffuse interstitial prominence consistent with positive fluid balance. 2. Likely trace right and small left pleural effusions and associated lower lobe airspace disease, likely atelectasis. Theodore Zavala MD Head CT 11/01/16 1814 Signed Impressions: Service Date/Time: Tuesday, November 01, 2016 15:11 - CONCLUSION: 1. Moderate cerebral atrophy with ventricles that appear slightly out of proportion in size to degree of atrophy. Clinical correlation for normal pressure hydrocephalus is recommended. 2. Otherwise, no acute intracranial abnormality. Theodore Zavala MD Objective Remarks GENERAL: This is a well-nourished, well-developed patient, purse lipped breathing with tachypnea CARDIOVASCULAR: Regular rate and rhythm without murmurs, gallops, or rubs. RESPIRATORY: Scattered wheezes GASTROINTESTINAL: Abdomen soft, non-tender, nondistended. Normal active bowel sounds MUSCULOSKELETAL: Extremities without clubbing, cyanosis, or edema. NEURO: Alert & Oriented x4 to person, place, time, situation. Moves all ext x4 but is weak A/P Problem List: (1) UTI (urinary tract infection) ICD Code: N39.0 Status: Acute (2) Weakness ICD Code: R53.1 Status: Acute (3) Acute exacerbation of CHF (congestive heart failure) ICD Code: I50.9 Status: Acute (4) Hypotension ICD Code: I95.9 Status: Resolved (5) Anemia ICD Code: D64.9 Status: Resolved (6) COPD (chronic obstructive pulmonary disease) ICD Code: J44.9 Status: Chronic (7) Positive blood culture ICD Code: R78.81 Status: Acute Assessment and Plan (1) UTI (urinary tract infection) ICD Code: N39.0 Status: Acute Plan: Continue Rocephin IV for now and likely Augmentin at D/C Patient recently was treated with antibiotic for 2 weeks for presumed UTI. Continue to follow for signs and symptoms of sepsis although this time the patient is quite stable (2) Weakness ICD Code: R53.1 Status: Acute Plan: Better from an assisted living facility may require home health versus fdc facility placement at discharge (had pt hhc already with [facility]) Rule out organic causes and treat urinary tract infection PT eval pending (3) Acute exacerbation of CHF (congestive heart failure) ICD Code: I50.9 Status: Acute Plan: BNP slightly elevated with increasing weakness and dyspnea on exertion, EF 08/2016 was 40%. Continue home medications in this patient with known ischemic cardiac myopathy Monitor I&O continue Lasix with potassium and add beta aldo as patient will tolerate (4) Hypotension ICD Code: I95.9 Status: Resolved Plan: improved follow closely with diuresis (5) Anemia ICD Code: D64.9 Status: Resolved Plan: With a history of GI bleed although not actively bleeding at this time. Continue with Carafate and Protonix. Follow hemoglobin hg 9.7 (6) COPD (chronic obstructive pulmonary disease) ICD Code: J44.9 Status: Chronic Plan: Acute exacerbation of COPD, will add steroids and bronchodilators and continue supportive care Repeat chest x-ray pending (7) Positive blood culture ICD Code: R78.81 Status: Acute Plan: Continue IV Rocephin for now Rule out contaminant Consult ID for recommendations at DC Discharge Planning DC to [facility] when stable Problem Qualifiers (1) UTI (urinary tract infection): Qualified Code: N30.00 - Acute cystitis without hematuria Soo Cummings MD Nov 04, 2016 08:50
[2016-11-04] MEDS: methylPREDNISolone SOD SUCC 40 MG/1 ML VIAL IV PUSH SCH ×2 (08:51→21:49)
[2016-11-04] MEDS: SODIUM CHLORIDE 0.9% FLUSH 10 ML FLUSH IV FLUSH SCH ×2 (08:51→21:52)
[2016-11-04] MEDS: cefTRIAXone INJ 1,000 MG in SODIUM CHLORIDE 0.9% INJ 100 ML IV SCH (16:34)
--- NOTE | 2016-11-04 17:23 | PD.WCN.NOT ---
Wound Consult Description: Patient seen on 3rd floor [facility] for evaluation of sacral pressure injury.Removed briefs on patient. Patient able turn self to L side with reveal 100% pink partial thickness wound to R upper medial buttock just below sacrum. Wound appears to be a stage 2 pressure injury. Periwound is unremarkable. Wound measurements are as follows :1cm x 1cm x ~0.1 cm.Cleansed patient with soap and water to remove stool. Cleansed wound with normal saline and applied single layer Xeroform gauze dressing just over wound bed. Sprayed periwound with Cavilon spray and applied dry cover dressing.Left briefs off patient. Positioned patient to L side with pillow and lowered bed to safe height before leaving room. Communicated with: MIHIR heller, and Doctor Zoila for orders Recommendation: Please cleanse stage 2 pressure injury to R upper buttock with normal saline and apply Xeroform gauze dressing in single layer just over wound bed and cover with dry cover dressing.Please change dressing every other day or PRN if saturated or dislodged. Please apply skin prep before applying adhesives to skin. Tori Rodrigez [facility] Nov 04, 2016 17:23
--- NOTE | 2016-11-04 17:43 | MB ---
cc: IRMA NICOLE MD DATE OF CONSULTATION 11/04/[address] Cummings REASON FOR CONSULTATION Bacteremia. Possible contaminant. Antibiotics. HISTORY OF PRESENT ILLNESS This is an 86-year-old white male with history of COPD. The patient was seen in the emergency department on 11/01 with altered mental status. He is a resident of an assisted living facility. He is noted to have been short of breath with coughing prior to admission. He reportedly had had foul smelling urine at the time he was seen in the emergency department. The patient had normal white blood cell count and he was afebrile. Urinalysis showed white blood cell clumps and positive for leukocyte esterase and nitrite. Chest x-ray was performed and it showed pulmonary vascular congestion. Blood cultures were obtained on admission and one bottle of four came back positive with staph coagulase negative. Urine culture came back showing E-coli. The patient has been receiving antibiotic treatment with ceftriaxone. This consultation is requested to address the positive blood culture. The patient is currently laying in bed and in no acute distress. He is coughing and tells me that he is not producing any sputum. He appears awake and alert and he is oriented. His white blood cell count has remained normal. He has been afebrile, but his temperature has been somewhat low in the 96.3-96.8 range. The patient's blood pressure has been stable throughout the admission. PAST MEDICAL HISTORY 1. COPD. 2. Coronary artery disease 3. History of coronary bypass graft surgery 4. History of coronary stent. 5. Spinal fusion 6. Left femur fracture repair 7. Atrial fibrillation, 8. Hyperlipidemia. ALLERGIES NO KNOWN DRUG ALLERGIES. MEDICATIONS 1. Ceftriaxone 2. Lasix 3. Methylprednisolone 4. Potassium. 5. Protonix. 6. Zoloft. 7. Lipitor 8. Lopressor 9. Carafate 10. DuoNeb. SOCIAL HISTORY No tobacco. The patient quit smoking in 1987. No alcohol. No illicit drugs. The patient is wheelchair bound. FAMILY HISTORY Noncontributory. REVIEW OF SYSTEMS Significant for dyspnea on exertion and coughing. Otherwise, negative on 10-point review. PHYSICAL EXAMINATION GENERAL: Chronically ill appearing male who is in no acute distress. He is awake, alert and oriented. VITAL SIGNS: Temperature 96.5, BP 120/66, respirations 16, heart rate 90. HEENT: Head atraumatic. Extraocular movements grossly intact, pupils reactive to light. No icterus. Oropharynx no lesions. No thrush. NECK: Supple. No adenopathy. LUNGS: Rhonchi at both bases. HEART: Regular S1 and S2, without audible murmurs. ABDOMEN: Bowel sounds present, soft, nontender. RECTAL: Not performed. EXTREMITIES: No clubbing, cyanosis or edema. SKIN: No rash. NEUROLOGIC: Cranial nerves intact. Awake and alert. PSYCHIATRIC: The patient is calm and cooperative. LABORATORY DATA WBC 10.0, platelets 439, 86% neutrophils, hemoglobin 10.0. Creatinine 0.54, BUN 23, sodium 141. Liver function tests normal. IMPRESSION 1. Bacteremia with staph coag negative which suggests contamination with the bacteria growing only in 1/4 bottles in patient without clinical evidence of sepsis. 2. UTI due to E-coli being treated currently with ceftriaxone. RECOMMENDATIONS 1. No treatment necessary for the staph coag negative on the blood culture. 2. Treat the patient for the UTI as you are doing. The patient can be transitioned to an oral antibiotic. Thank you for this consultation. I have nothing further to add from an infectious disease standpoint. I will sign of the case since it is not necessary for me to follow this patient. Irma Nicole MD FD/ /4:55 PM /5:27 PM
[2016-11-04] MEDS: ATORVASTATIN 40 MG TAB PO SCH (21:52)
[2016-11-05] VITALS: BP 123/73; PULSE 84; RESP 24; TEMP 96.5; O2SAT 93
[2016-11-05] MEDS: RESP: ALBUTEROL 2.5 MG/IPRATROPIUM 0.5 MG NEB (SCH) NEB (07:26)
[2016-11-05 07:30] VITALS: O2SAT 92
[2016-11-05 08:00] VITALS: BP 121/90; PULSE 108; RESP 18; TEMP 97.6; O2SAT 92
[2016-11-05] MEDS ORDERED: ALPR.5 PO (08:33)
[2016-11-05] MEDS ORDERED: PRED10PA PO (08:34)
--- NOTE | 2016-11-05 08:34 | HHI.DS ---
Discharge Summary Admission Date Nov 01, 2016 at 16:13 Discharge Date: Nov 05, 2016 Admitting Diagnosis CHF, UTI (1) UTI (urinary tract infection) ICD Code: N39.0 Diagnosis: Principal (2) Weakness ICD Code: R53.1 Diagnosis: Secondary (3) Acute exacerbation of CHF (congestive heart failure) ICD Code: I50.9 Diagnosis: Principal (4) Hypotension ICD Code: I95.9 Diagnosis: Secondary (5) Anemia ICD Code: D64.9 Diagnosis: Secondary (6) COPD (chronic obstructive pulmonary disease) ICD Code: J44.9 Diagnosis: Secondary (7) Positive blood culture ICD Code: R78.81 Diagnosis: Secondary Procedures none Brief History - From Admission Patient is a 86-year-old gentleman with a known history of ischemic cardiomyopathy and systolic heart failure. Patient was recently in the hospital for treatment of the same. He did come to the emergency room with his because he was having slurred speech and sleeping more than usual. Patient also was complaining of urgency and frequency and was found here to have urinary tract infection and started on empiric antibiotics. His urine has been dark and foul-smelling according to his . 10 days ago he was treated for urinary tract infection empirically and noted that the urine cleared up. He also has been increasingly weak with dyspnea on exertion and orthopnea. His reports 10 pound weight loss within the last month to month and a half. The patient has not been eating well. Patient says he is too tired to eat and his urine CBC/BMP: 11/04/16 0534 11/04/16 0534 Significant Findings Laboratory Tests Test 11/04/16 05:34 Red Blood Count 3.79 MIL/MM3 (4.50-5.90) Hemoglobin 10.0 GM/DL (13.0-17.0) Hematocrit 31.1 % (39.0-51.0) Mean Corpuscular Hemoglobin 26.3 PG (27.0-34.0) Neutrophils (%) (Auto) 86.8 % (16.0-70.0) Lymphocytes (%) (Auto) 6.8 % (9.0-44.0) Neutrophils # (Auto) 8.7 TH/MM3 (1.8-7.7) Lymphocytes # (Auto) 0.7 TH/MM3 (1.0-4.8) Blood Urea Nitrogen 23 MG/DL (7-18) Creatinine 0.54 MG/DL (0.60-1.30) Random Glucose 135 MG/DL (74-106) Imaging Last Impressions Chest X-Ray 11/03/16 0000 Signed Impressions: Service Date/Time: Thursday, November 03, 2016 13:11 - CONCLUSION: 1. Mildly increased diffuse interstitial prominence consistent with positive fluid balance. 2. Likely trace right and small left pleural effusions and associated lower lobe airspace disease, likely atelectasis. Theodore Zavala MD Head CT 11/01/16 1454 Signed Impressions: Service Date/Time: Tuesday, November 01, 2016 15:11 - CONCLUSION: 1. Moderate cerebral atrophy with ventricles that appear slightly out of proportion in size to degree of atrophy. Clinical correlation for normal pressure hydrocephalus is recommended. 2. Otherwise, no acute intracranial abnormality. Theodore Zavala MD PE at Discharge GENERAL: This is a well-nourished, well-developed patient, purse lipped breathing with tachypnea CARDIOVASCULAR: Regular rate and rhythm without murmurs, gallops, or rubs. RESPIRATORY: Scattered wheezes GASTROINTESTINAL: Abdomen soft, non-tender, nondistended. Normal active bowel sounds MUSCULOSKELETAL: Extremities without clubbing, cyanosis, or edema. NEURO: Alert & Oriented x4 to person, place, time, situation. Moves all ext x4 but is weak Hospital Course (1) UTI (urinary tract infection) ICD Code: N39.0 Status: Acute Plan: Continue Rocephin IV for now and ceftin PO at D/C Patient recently was treated with antibiotic for 2 weeks for presumed UTI. Continue to follow for signs and symptoms of sepsis although this time the patient is quite stable (2) Weakness ICD Code: R53.1 Status: Acute Plan: Better from an assisted living facility may require home health versus correction facility placement at discharge (had pt hhc already with [facility]) Rule out organic causes and treat urinary tract infection PT eval pending (3) Acute exacerbation of CHF (congestive heart failure) ICD Code: I50.9 Status: Acute Plan: BNP slightly elevated with increasing weakness and dyspnea on exertion, EF 08/2016 was 40%. Continue home medications in this patient with known ischemic cardiac myopathy Monitor I&O continue Lasix with potassium and add beta aldo as patient will tolerate (4) Hypotension ICD Code: I95.9 Status: Resolved Plan: improved follow closely with diuresis (5) Anemia ICD Code: D64.9 Status: Resolved Plan: With a history of GI bleed although not actively bleeding at this time. Continue with Carafate and Protonix. Follow hemoglobin hg 9.7 (6) COPD (chronic obstructive pulmonary disease) ICD Code: J44.9 Status: Chronic Plan: Acute exacerbation of COPD, will add steroids and bronchodilators and continue supportive care Repeat chest x-ray pending (7) Positive blood culture ICD Code: R78.81 Status: Acute Plan: Continue IV Rocephin for now, give ceftin at [facility] Rule out contaminant Consult ID for recommendations at ID Improved, discharged in stable condition to SNF, to follow up as OP with PCP and consultants. Pt Condition on Discharge: Stable Discharge Disposition: Discharge to SNF Discharge Time: > 30 minutes Discharge Instructions DIET: Follow Instructions for: As Tolerated, No Restrictions Activities you can perform: Regular-No Restrictions Follow up Referrals: PCP Follow-up - 1 Week New Medications: Cefuroxime (Cefuroxime) 500 Mg Tab 500 MG PO BID Infection #20 Ref 0 TAB Lactobacillus Acidophilus (Lactinex) 1 Chew 1 TAB CHEW DAILY Nutritional Supplement #30 Ref 0 TAB Prednisone (21) 10 mg tab Dose Pack (Prednisone (21) 10 mg tab Dose Pack) 10 Mg Pack 10 MG PO DIRECTED Inflammation #1 Ref 0 DSPK Continued Medications: Alprazolam (Xanax) 0.5 Mg Tab 0.5 MG PO Q6H PRN ANXIETY #10 Ref 0 TAB (This prescription has been renewed) Atorvastatin (Atorvastatin) 40 Mg Tab 40 MG PO HS Cholesterol Management Ref 0 TAB Furosemide (Furosemide) 20 Mg Tab 20 MG PO DAILY #30 Ref 0 TAB Zrxppavgxzw-Xpyweazxtdi-Wcm C- (Glucosamine Chondroitin) 1 Cap Cap Ipratropium-Albuterol Neb (Duoneb) 0.5-2.5 Mg/3 Ml Neb 1 AMPULE INH Q2HR NEB PRN WHEEZING #1 BOX Lisinopril (Lisinopril) 2.5 Mg Tab 2.5 MG PO DAILY #30 Ref 0 TAB Pantoprazole (Protonix) 40 Mg Tab 40 MG PO DAILY Reflux #30 Ref 0 TAB Potassium Chloride ER (Potassium Chloride ER) 10 Meq Cap 10 MEQ PO DAILY Electrolyte Replacement #30 Ref 0 CAP Sertraline (Sertraline) 100 Mg Tab 100 MG PO DAILY #30 Ref 0 TAB Sucralfate (Sucralfate) 1 Gm Tab 1 GM PO QID on empty stomach Duodenal ulcer #120 Ref 0 TAB Soo Cummings MD Nov 05, 2016 08:34
--- NOTE | 2016-11-05 08:40 | HHI.PR ---
Subjective Remarks Eating breakfast. Feels improved today. No fevr or chills. No cough. Denies wheezing. Wants to go t SNF. Family at bedside Objective Vitals Vital Signs Date Time Temp Pulse Resp B/P Pulse Ox O2 Delivery O2 Flow Rate FiO2 11/05/16 07:30 92 Nasal Cannula 2.00 11/05/16 00:00 96.5 84 24 123/73 93 11/04/16 20:00 98.1 83 22 107/55 98 11/04/16 19:05 92 Nasal Cannula 2.00 11/04/16 19:02 96.0 95 18 124/74 96 11/04/16 14:12 96.5 90 15 120/66 97 11/04/16 13:23 99 Nasal Cannula 3.00 11/04/16 08:49 96.3 76 18 124/58 95 I/O 11/04/16 11/04/16 11/04/16 11/05/16 11/05/16 11/05/16 07:00 15:00 23:00 07:00 15:00 23:00 Intake Total 480 ml 1040 ml 120 ml Output Total 500 ml 350 ml 200 ml Balance -20 ml 690 ml -80 ml Intake Oral 480 ml 1040 ml 120 ml Output Urine Total 500 ml 350 ml 200 ml # Bowel Movements 1 0 Result Diagram: 11/04/16 0534 11/04/16 0534 Imaging Last Impressions Chest X-Ray 11/03/16 0000 Signed Impressions: Service Date/Time: Thursday, November 03, 2016 13:11 - CONCLUSION: 1. Mildly increased diffuse interstitial prominence consistent with positive fluid balance. 2. Likely trace right and small left pleural effusions and associated lower lobe airspace disease, likely atelectasis. Theodore Zavala MD Head CT 11/01/16 1454 Signed Impressions: Service Date/Time: Tuesday, November 01, 2016 15:11 - CONCLUSION: 1. Moderate cerebral atrophy with ventricles that appear slightly out of proportion in size to degree of atrophy. Clinical correlation for normal pressure hydrocephalus is recommended. 2. Otherwise, no acute intracranial abnormality. Theodore Zavala MD Objective Remarks GENERAL: This is a well-nourished, well-developed patient, purse lipped breathing with tachypnea CARDIOVASCULAR: Regular rate and rhythm without murmurs, gallops, or rubs. RESPIRATORY: Scattered wheezes GASTROINTESTINAL: Abdomen soft, non-tender, nondistended. Normal active bowel sounds MUSCULOSKELETAL: Extremities without clubbing, cyanosis, or edema. NEURO: Alert & Oriented x4 to person, place, time, situation. Moves all ext x4 but is weak A/P Problem List: (1) UTI (urinary tract infection) ICD Code: N39.0 Status: Acute (2) Weakness ICD Code: R53.1 Status: Acute (3) Acute exacerbation of CHF (congestive heart failure) ICD Code: I50.9 Status: Acute (4) Hypotension ICD Code: I95.9 Status: Resolved (5) Anemia ICD Code: D64.9 Status: Resolved (6) COPD (chronic obstructive pulmonary disease) ICD Code: J44.9 Status: Chronic (7) Positive blood culture ICD Code: R78.81 Status: Acute Assessment and Plan (1) UTI (urinary tract infection) ICD Code: N39.0 Status: Acute Plan: Continue Rocephin IV for now and ceftin PO at D/C Patient recently was treated with antibiotic for 2 weeks for presumed UTI. Continue to follow for signs and symptoms of sepsis although this time the patient is quite stable (2) Weakness ICD Code: R53.1 Status: Acute Plan: Better from an assisted living facility may require home health versus halfway facility placement at discharge (had pt hhc already with [facility]) Rule out organic causes and treat urinary tract infection PT eval pending (3) Acute exacerbation of CHF (congestive heart failure) ICD Code: I50.9 Status: Acute Plan: BNP slightly elevated with increasing weakness and dyspnea on exertion, EF 08/2016 was 40%. Continue home medications in this patient with known ischemic cardiac myopathy Monitor I&O continue Lasix with potassium and add beta aldo as patient will tolerate (4) Hypotension ICD Code: I95.9 Status: Resolved Plan: improved follow closely with diuresis (5) Anemia ICD Code: D64.9 Status: Resolved Plan: With a history of GI bleed although not actively bleeding at this time. Continue with Carafate and Protonix. Follow hemoglobin hg 9.7 (6) COPD (chronic obstructive pulmonary disease) ICD Code: J44.9 Status: Chronic Plan: Acute exacerbation of COPD, will add steroids and bronchodilators and continue supportive care Repeat chest x-ray pending (7) Positive blood culture ICD Code: R78.81 Status: Acute Plan: Continue IV Rocephin for now, give ceftin at [facility] Rule out contaminant Consult ID for recommendations at OR Improved, discharged in stable condition, to follow up as OP with PCP and consultants. Problem Qualifiers (1) UTI (urinary tract infection): Qualified Code: N30.00 - Acute cystitis without hematuria Soo Cummings MD Nov 05, 2016 08:40
[2016-11-05] MEDS: FUROSEMIDE 20 MG/2 ML VIAL IV PUSH ONE ×2 (08:45→09:01)
[2016-11-05] MEDS: SODIUM CHLORIDE 0.9% FLUSH 10 ML FLUSH IV FLUSH SCH (09:00)
[2016-11-05] MEDS: methylPREDNISolone SOD SUCC 40 MG/1 ML VIAL IV PUSH SCH ×2 (09:00→09:01)
[2016-11-05] MEDS: POTASSIUM CHLORIDE 20 MEQ CONTROLLED RELEASE TAB PO SCH (09:01)
[2016-11-05] MEDS: METOPROLOL TARTRATE 25 MG TAB PO SCH (09:01)
[2016-11-05] MEDS: SUCRALFATE 1 GM TAB PO SCH (09:01)
[2016-11-05] MEDS: PANTOPRAZOLE SOD 40 MG DELAYED RELEASE TAB PO SCH (09:01)
[2016-11-05] MEDS: FUROSEMIDE 20 MG TAB PO SCH (09:02)
[2016-11-05] MEDS: SERTRALINE HCL 100 MG TAB PO SCH (09:02)
[2016-11-05] MEDS ORDERED: LACTCHW3 CHEW (09:54)
[2016-11-05] MEDS ORDERED: CEFU1TAB20 PO (09:54)
[2016-11-05] MEDS ORDERED: FUROSEMIDE 20 MG TAB PO ONE (10:00)
[2016-11-05] MEDS ORDERED: predniSONE 20 MG TAB PO ONE (10:00)
== END 2016-11-05 11:51 | DRG 689 ==
LOC: PHED 13:37 → PHEDA 16:13 → PH3B 17:56
PROVIDERS: ADMIT Hospitalist; ATTEND Hospitalist
DX: N39.0 Urinary tract infection, site not specified (principal); I50.23 Acute on chronic systolic (congestive) heart failure; I95.89 Other hypotension; J44.1 Chronic obstructive pulmonary disease with (acute) exacerbation; E86.0 Dehydration; I48.91 Unspecified atrial fibrillation; D64.9 Anemia, unspecified; E78.5 Hyperlipidemia, unspecified; B96.20 Unspecified Escherichia coli [E. coli] as the cause of diseases classified elsewhere; I25.5 Ischemic cardiomyopathy; I25.10 Atherosclerotic heart disease of native coronary artery without angina pectoris; F41.9 Anxiety disorder, unspecified; K21.9 Gastro-esophageal reflux disease without esophagitis; H91.90 Unspecified hearing loss, unspecified ear; Z95.1 Presence of aortocoronary bypass graft; Z79.01 Long term (current) use of anticoagulants; Z95.5 Presence of coronary angioplasty implant and graft; Z87.891 Personal history of nicotine dependence; Z98.1 Arthrodesis status; Z99.3 Dependence on wheelchair
CPT/HCPCS: 51702; 70450; 71010; 71020; 80048; 80076; 81001; 83735; 83880; 84443; 84484; 85025; 85610; 85730; 86403; 87040; 87077; 87086; 87186; 87205; 93005; 94640; 94664; 96374; J0696; J1940; J2920; J7512

== ENCOUNTER 2016-11-29 19:28 | Inpatient (IN) | payer MEDICARE ==
[2016-11-29] VITALS (7 sets, daily range): BP systolic 113–145; BP diastolic 59–78; PULSE 94–105; RESP 25–38; TEMP 98; O2SAT 75–100
[~2016-11-29] VITALS: Ht 182.9 cm; Wt 82.0 kg
[~2016-11-29 19:28] MED LIST changes: -BENZ1CAP8 PO; +CEFU1TAB20 PO; +LACTCHW3 CHEW; +PRED10PA PO
[2016-11-29] MEDS ORDERED: SODIUM CHLORIDE 0.9% FLUSH 10 ML FLUSH IVF PRN (20:00)
[2016-11-29] MEDS ORDERED: methylPREDNISolone SOD SUCC 125 MG/2 ML VIAL IVP ONE (20:00)
[2016-11-29] MEDS: RESP: ALBUTEROL 2.5 MG/3 ML NEB (SCH) INH ×2 (20:15→20:16)
--- NOTE | 2016-11-29 20:17 | PD ---
HPI Chief Complaint: Respiratory Distress Time Seen by Provider: 20:04 Travel History International Travel<30 days: No Contact w/Intl Traveler<30days: No Traveled to known affect area: No History of Present Illness HPI 86- year old male here for shortness of breath. Patient reports that he has COPD and CHF and has chronic shortness or breath, however worsened today. He reports that he uses oxygen at home, but is unsure of his normal oxygen saturation as he doesn't monitor his O2 at home. Per nurse, at the facility where EMS picked up the patient he had an oxygen saturation of 72% on 3L, which was then increased to 98% via NRB at 15L. The patient received 2 Albuterol treatments prior to arrival. The patient denies any chest pain, N/V/D. Patient has no other complaints or pain. PFSH Past Medical History Hx Anticoagulant Therapy: Yes (ASPIRIN ) Asthma: Yes Atrial Fibrillation: Yes Heart Rhythm Problems: No Cancer: No Cardiovascular Problems: Yes (CHF) High Cholesterol: Yes Chemotherapy: No Chest Pain: No Congestive Heart Failure: Yes COPD: Yes Diminished Hearing: Yes ([place]) Endocrine: No Gastrointestinal Disorders: Yes GERD: Yes Genitourinary: Yes Hiatal Hernia: No Hypertension: Yes Immune Disorder: No Implanted Vascular Access Dvce: Yes Kidney Stones: No Musculoskeletal: No Neurologic: No Psychiatric: No Reproductive: No Respiratory: Yes (COPD) Pneumonia: Yes Radiation Therapy: No Renal Failure: No Sleep Apnea: No Ulcer: No Past Surgical History Body Medical Devices: rods on legs Cardiac Surgery: Yes (CABG x3; STENT x2) Ear Surgery: No Endocrine Surgery: No Eye Surgery: No Genitourinary Surgery: No Gynecologic Surgery: No Oral Surgery: No Thoracic Surgery: Yes (SPINAL FUSION) Other Surgery: Yes Social History Alcohol Use: No (FORMERLY OFTEN ) Tobacco Use: No (QUIT 1987) Substance Use: No Allergies-Medications (Allergen,Severity, Reaction): Coded Allergies: *MDRO Multi-Drug Resistant Organism (Verified Adverse Reaction, Unknown, ) MRSA PCR screen POSITIVE 09/14/16 Reported Meds & Prescriptions Reported Meds & Active Scripts Active Lactinex (Lactobacillus Acidophilus) 1 Chew 1 Tab CHEW DAILY Cefuroxime (Cefuroxime Axetil) 500 Mg Tab 500 Mg PO BID Xanax (Alprazolam) 0.5 Mg Tab 0.5 Mg PO Q6H PRN Lisinopril 2.5 Mg Tab 2.5 Mg PO DAILY Protonix (Pantoprazole Sodium) 40 Mg Tab 40 Mg PO DAILY Duoneb (Ipratropium-Albuterol Neb) 0.5-2.5 Mg/3 Ml Neb 1 Ampule INH Q2HR NEB PRN Reported Dulcolax Supp (Bisacodyl) 10 Mg Supp 10 Mg RECTAL DAILY Culturelle (Lactobacillus Rhamnosus (GG)) 10 B Cell Cap 1.5 Cap PO DAILY Zinc Sulfate 220 Mg Tab 220 Mg PO DAILY Milk of Magnayan Liq (Magnesium Hydroxide) 400 Mg/5 Ml Susp 30 Ml PO DAILY PRN Omeprazole 20 Mg Cap 20 Mg DAILY Sucralfate 1 Gm Tab 1 Gm PO BID on empty stomach Cholestyramine 4 Gm/Dose Powd 4 Gm PO TID 1 level scoopful of powder contains 4 grams of cholestyramine. Vitamin C (Ascorbic Acid) 250 Mg Tab 500 Mg PO BID One Daily Complete (Multivitamin with Minerals) 1 Each Tablet Unknown Dose PO DAILY Tylenol (Acetaminophen) 325 Mg Tab 650 Mg PO Q4H PRN Potassium Chloride ER (Potassium Chloride) 10 Meq Cap 10 Meq PO DAILY Furosemide 20 Mg Tab 20 Mg PO DAILY Glucosamine Chondroitin (Ymhaziqofxn-Pyzbiletfsf-Qdi C-) 1 Cap Cap Sertraline (Sertraline HCl) 100 Mg Tab 100 Mg PO DAILY Atorvastatin (Atorvastatin Calcium) 40 Mg Tab 40 Mg PO HS Review of Systems General / Constitutional: No: Fever, Chills, Weight Gain, Weight Loss, Other Eyes: No: Diploplia, Blurred Vision, Photophobia, Drainage, Redness, Foreign Body Sensation, Pain, Tearing, Blind Spots, Visual changes, Blindness, Other HENT: No: Headaches, Vertigo, Lightheadedness, Sore Throat, Rhinitis, Rhinorrhea, Congestion, Nosebleed, Neck Stiffness, Neck Pain, Masses, Gingival Bleeding, Dental Difficulties, Ear Discharge, Earache, Other Cardiovascular: Positive: Diaphoresis, Dyspnea on exertion, No: Chest Pain or Discomfort, Palpitations, Irregular Rhythm, Tachycardia, Syncope, Varicosities, Edema, Cyanosis, Varicosities, Phlebitis, Claudication, Other Respiratory: Positive: Shortness of Breath, Orthopnea, No: Cough, Wheezing, Sneezing, Hemoptysis, Stridor, Night Sweats, Pleuritic Pain, Other Gastrointestinal: No: Nausea, Vomiting, Diarrhea, Abdominal Pain, Hematemesis, Hematochezia, Constipation, Changes in Bowel Habits, Indigestion, Dysphagia, Loss of Appetite, Other Genitourinary: No: Urgency, Frequency, Dysuria, Nocturia, Hematuria, Decreased Urinary Output, Oliguria, Hesitancy, Dribbling, Incontinence, Pelvic Pain, Flank Pain, Dyspareunia, Discharge, Dysmenorrhea, Menorrhagia, Metorrhagia, Vaginal Bleeding, Other Musculoskeletal: No: Myalgias, Arthralgias, Limited ROM, Weakness, Cramping, Edema, Pain, Atrophy, Other Skin: No Rash, No Itching, No Dryness, No Lumps, No Hives, No Change in Pigmentation, No Change in nails, No Alopecia, No Lesions, No Breast Lumps, No Breast Tenderness, No Breast Swelling, No Other Neurologic: No: Weakness, Dizziness, Syncope, Focal Abnormalities, Coordination Problem, Tremor, Ataxia, Headache, Change in Mentation, Slurred Speech, Paresthesia, Incontinence, Seizures, Sensory Disturbance, Other Physical Exam Narrative GENERAL: SKIN: Warm and dry. HEAD: Atraumatic. Normocephalic. EYES: Pupils equal and round. No scleral icterus. No injection or drainage. ENT: No nasal bleeding or discharge. Mucous membranes pink and moist. NECK: Trachea midline. No JVD. CARDIOVASCULAR: Tachycardic. Regular rate and rhythm. RESPIRATORY: Rales and rhonchi noted bilaterally. GASTROINTESTINAL: Abdomen soft, non-tender, nondistended. Hepatic and splenic margins not palpable. MUSCULOSKELETAL: Extremities without clubbing, cyanosis, or edema. No obvious deformities. NEUROLOGICAL: Awake and alert. No obvious cranial nerve deficits. Motor grossly within normal limits. Five out of 5 muscle strength in the arms and legs. Normal speech. PSYCHIATRIC: Appropriate mood and affect; insight and judgment normal. Data Data Last Documented VS Vital Signs Date Time Temp Pulse Resp B/P Pulse Ox O2 Delivery O2 Flow Rate FiO2 11/29/16 21:03 94 32 113/59 92 BiPAP 60 11/29/16 20:19 6 11/29/16 19:55 98.0 Orders Electrocardiogram (11/29/16 19:59) Basic Metabolic Panel (Bmp) (11/29/16 19:59) Complete Blood Count With Diff (11/29/16 19:59) Chest, Single Ap (11/29/16 19:59) Ecg Monitoring (11/29/16 19:59) Iv Access Insert/Monitor (11/29/16 19:59) Oximetry (11/29/16 19:59) Oxygen Administration (11/29/16 19:59) Methylprednisolone So Succ Inj (Solumedr (11/29/16 20:00) Albuterol Neb (Albuterol Neb) (11/29/16 20:00) Sodium Chloride 0.9% Flush (Ns Flush) (11/29/16 20:00) B-Type Natriuretic Peptide (11/29/16 20:10) Resp Bipap / Cpap Non Invas Vt (11/29/16 ) Arterial Blood Gas (Abg) (11/29/16 ) Ceftriaxone Inj (Rocephin Inj) (11/29/16 21:00) Azithromycin Inj (Zithromax Inj) (11/29/16 21:00) Furosemide Inj (Lasix Inj) (11/29/16 21:00) Labs Laboratory Tests Test 11/29/16 11/29/16 20:15 20:45 White Blood Count 17.4 TH/MM3 Red Blood Count 4.06 MIL/MM3 Hemoglobin 10.0 GM/DL Hematocrit 32.2 % Mean Corpuscular Volume 79.3 FL Mean Corpuscular Hemoglobin 24.7 PG Mean Corpuscular Hemoglobin 31.2 % Concent Red Cell Distribution Width 17.1 % Platelet Count 422 TH/MM3 Mean Platelet Volume 7.3 FL Neutrophils (%) (Auto) 90.4 % Lymphocytes (%) (Auto) 4.1 % Monocytes (%) (Auto) 4.9 % Eosinophils (%) (Auto) 0.2 % Basophils (%) (Auto) 0.4 % Neutrophils # (Auto) 15.7 TH/MM3 Lymphocytes # (Auto) 0.7 TH/MM3 Monocytes # (Auto) 0.9 TH/MM3 Eosinophils # (Auto) 0.0 TH/MM3 Basophils # (Auto) 0.1 TH/MM3 CBC Comment DIFF FINAL Differential Comment Sodium Level 134 MEQ/L Potassium Level 4.3 MEQ/L Chloride Level 97 MEQ/L Carbon Dioxide Level 28.3 MEQ/L Anion Gap 9 MEQ/L Blood Urea Nitrogen 11 MG/DL Creatinine 0.56 MG/DL Estimat Glomerular Filtration 138 ML/MIN Rate Random Glucose 143 MG/DL Calcium Level 8.4 MG/DL B-Type Natriuretic Peptide 591 PG/ML Blood Gas Puncture Site RT RADIAL Blood Gas Patient Temperature 98.6 Blood Gas HCO3 27 mmol/L Blood Gas Base Excess 3.4 mmol/L Blood Gas Oxygen Saturation 95 % Arterial Blood pH 7.44 Arterial Blood Partial 41 mmHg Pressure CO2 Arterial Blood Partial 86 mmHG Pressure O2 Arterial Blood Oxygen Content 12.9 Vol % Arterial Blood 1.5 % Carboxyhemoglobin Arterial Blood Methemoglobin 0.2 % Blood Gas Hemoglobin 9.6 G/DL Oxygen Delivery Device BIPAP Blood Gas Ventilator Setting IPAP12/EPAP6 Blood Gas Inspired Oxygen 60 % MDM Medical Decision Making Medical Screen Exam Complete: Yes Emergency Medical Condition: Yes Medical Record Reviewed: Yes Interpretation(s) CBC & BMP Diagram 11/29/16 20:15 BNP elevated in the 500s Last Impressions Chest X-Ray 11/29/161958 Signed Impressions: Service Date/Time: Tuesday, November 29, 2016 19:56 - CONCLUSION: Worsening infiltrates in the right lower lung and improving infiltrates in the left lower lobe. Larry Maldonado MD Differential Diagnosis COPD exacerbation Pneumonia CHF Respiratory Distress Narrative Course 86-year-old male that presents to the ED for evaluation of shortness of breath. Patient was properly examined and was found to have signs and symptoms very consistent respiratory distress. Likely CHF versus COPD exacerbation. Labs and imaging were ordered. Patient was given breathing treatments with some relief patient continued to be tachypneic and hypoxic. He was put on a CPAP with good relief and she feels improved. His respiratory rate and oxygenation improved. Patient's last and imaging did show a leukocytosis and what appears to be worsening pneumonia on the right side. Recommendation at this time is for admission. Case was discussed with Dr. Sapp who agrees to admission. Questionable CHF exacerbation secondary to elevated BNP but patient has had chronic elevated BNP. Patient was given Lasix to cover for this. Case discussed with Dr. Ureña who agrees to admission Diagnosis Primary Impression: COPD (chronic obstructive pulmonary disease) Qualified Code: J44.1 - Chronic obstructive pulmonary disease with acute exacerbation Additional Impressions: CHF exacerbation Qualified Code: I50.23 - Acute on chronic systolic congestive heart failure Pneumonia Qualified Code: J18.1 - Pneumonia of right middle lobe due to infectious organism Admitting Information Admitting Physician Requests: Admit Angel Pierce Nov 29, 2016 20:16
[2016-11-29 20:22] LABS: AUTOMATED NEUTROPHIL # 15.7 TH/MM3 (1.8-7.7); BASOPHIL # 0.1 TH/MM3 (0-0.2); BASOPHIL % 0.4 % (0.0-2.0); EOSINOPHIL % 0.2 % (0.0-4.0); HEMATOCRIT 32.2 % (39.0-51.0); HEMO FLAGS DIFF FINAL; LYMPH % 4.1 % (9.0-44.0); LYMPHOCYTE # 0.7 TH/MM3 (1.0-4.8); MEAN CELL VOLUME 79.3 FL (80.0-100.0); MEAN CORPUSCULAR HEMOGLOBIN 24.7 PG (27.0-34.0); MEAN CORPUSCULAR HGB CONC 31.2 % (32.0-36.0); MONO % 4.9 % (0.0-8.0); NEUT % 90.4 % (16.0-70.0); PLATELET COUNT 422 TH/MM3 (150-450); RED BLOOD COUNT 4.06 MIL/MM3 (4.50-5.90); RED CELL DISTRIBUTION WIDTH 17.1 % (11.6-17.2); WHITE BLOOD COUNT 17.4 TH/MM3 (4.0-11.0)
[2016-11-29 20:39] LABS: BICARBONATE 28.3 MEQ/L (21.0-32.0); POTASSIUM 4.3 MEQ/L (3.5-5.1)
--- NOTE | 2016-11-29 20:45 | RADRPT ---
EXAM DATE/TIME: 11/29/2016 19:56 [facility] COMPARISON: CHEST SINGLE AP, November 03, 2016, 13:11. INDICATIONS : Wheezing MEDICAL HISTORY : Hypertension. Chronic obstructive pulmonary disease. Congestive heart SURGICAL HISTORY : CABG. Cardiac stent. ENCOUNTER: Initial ACUITY: 1 day PAIN SCORE: 0/10 LOCATION: Bilateral chest FINDINGS: There are new patchy infiltrates in the medial right lower lung with some air bronchograms. [place] in the right lower chest with blunting of the costophrenic angle is similar to prior. There are persistent infiltrates in the left lower lobe which have improved since the prior chest x-ray and mo re of the left hemidiaphragm is now discernible. The upper lungs remain clear. The heart is stable in size. Evidence of prior median sternotomy. CONCLUSION: Worsening infiltrates in the right lower lung and improving infiltrates in the left lower lobe. Larry Maldonado MD on November 29, 2016 at 20:43 Board Certified Radiologist. This report was verified electronically.
[2016-11-29 20:53] LABS: BLOOD GAS BASE EXCESS 3.4 mmol/L (-2-2); BLOOD GAS CARBOXYHEMOGLOBIN 1.5 % (0-4); BLOOD GAS HCO3 27 mmol/L (22-26); BLOOD GAS METHEMOGLOBIN 0.2 % (0-2); BLOOD GAS O2 HGB SATURATION 95 % (90-100); BLOOD GAS OXYGEN CONTENT 12.9 Vol % (12.0-20.0); BLOOD GAS PCO2 41 mmHg (38-42); BLOOD GAS PO2 86 mmHG (61-120); BLOOD GAS TOTAL HGB 9.6 G/DL (12.0-16.0); TEMP CORR TO 98.6
[2016-11-29] MEDS ORDERED: CHOL4POW3 PO (20:53)
[2016-11-29] MEDS ORDERED: OMEP20CA2 (20:53)
[2016-11-29] MEDS ORDERED: VITA250T3 PO (20:53)
[2016-11-29] MEDS ORDERED: TYLE325T PO (20:53)
[2016-11-29] MEDS ORDERED: SUCR1TAB PO (20:53)
[2016-11-29] MEDS ORDERED: ONETAB26 PO (20:53)
[2016-11-29] MEDS ORDERED: MILKSUS PO (20:53)
[2016-11-29] MEDS ORDERED: CULT10CA4 PO (20:53)
[2016-11-29] MEDS ORDERED: ZINC220T PO (20:53)
[2016-11-29 20:54] LABS: CRITICAL VALUE NO; DRAW SITE RT RADIAL; FIO2 60 %; NUMBER OF ARTERIAL PUNCTURES 1; OXYGEN DEVICE BIPAP; STAT YES; ULNAR PULSE PRESENT; VENT SETTINGS IPAP12/EPAP6
[2016-11-29] MEDS ORDERED: DULC10SU3 RECTAL (20:56)
[2016-11-29] MEDS ORDERED: FUROSEMIDE 40 MG/4 ML VIAL IV PUSH ONE (21:00)
[2016-11-29] MEDS ORDERED: AZITHROMYCIN INJ 500 MG in SODIUM CHLOR 0.9% 250 ML INJ 250 ML IV ONE (21:00)
[2016-11-29] MEDS ORDERED: cefTRIAXone INJ 1,000 MG in SODIUM CHLORIDE 0.9% INJ 100 ML IV ONE (21:00)
[2016-11-29] MEDS ORDERED: NALOXONE HCL 0.4 MG/ML AMP IV PRN (21:15)
[2016-11-29] MEDS ORDERED: SODIUM CHLORIDE 0.9% FLUSH 10 ML FLUSH IV FLUSH PRN (21:15)
[2016-11-29] MEDS ORDERED: RESP: ALBUTEROL 2.5 MG/IPRATROPIUM 0.5 MG NEB (PRN) NEB (21:30)
[2016-11-29] MEDS: RESP: ALBUTEROL 2.5 MG/IPRATROPIUM 0.5 MG NEB (SCH) NEB (21:38)
--- NOTE | 2016-11-29 21:54 | HHI.HP ---
[facility] Service [facility] ([place], [place])ists Primary Care Physician Moisés Sampson M.D. Admission Diagnosis acute respiratory distress, pneumonia, CHF Diagnoses: Travel History International Travel<30 Days: No Contact w/Intl Traveler <30 Da: No Traveled to Known Affected Are: No History of Present Illness History from patient, ER physician communication, and review of medical records. Patient states that he wasn't happy with the rehabilitation facility that he lives. He believes that they were not doing anything for him. He states that he has been short of breath which is his baseline. He said he told his to call for 911 for him mostly because he was having diarrhea. He reports he "pooped in pants". States he has been "sweating like mad" Again, regarding his shortness of breath, he states he is always short of breath and he might have been just worsened a little bit. Denies fever. Denies coughing more than his usual as well. He states he was not really able to bring up sputum. When he did, it was yellow in color. Denies nausea/vomiting/urinary burning or pain on urination. Next and reports that his diarrhea was at least 3 or 4 times a day. Yellow or green color. Smells worse than his normal. Reports a prior history of C. difficile. Patient was also hospital most recently and was receiving antibiotics then. Today as well, in the emergency room, patient received Rocephin, azithromycin. Patient reports that he has mostly been in wheel chair at the rehabilitation facility. He did take part in physical therapy at times. Reports of peripheral edema which limits his ambulatory status. He is not sure about taking diuretics. He is not sure what kind of medications he has been on. Denies any black color stool or red color stool. Denies chest pain/syncopal episodes. Denies dizziness at times and nothing significant the different from his baseline. Review of Systems Except as stated in HPI: all other systems reviewed are Neg Past Family Social History Past Medical History COPD CADstatus post cardiac stent, CABG Atrial fibrillation Hyperlipidemia Past Surgical History CABG 3 vessels Coronary artery stent 2 Spinal fusion Femoral fracture repair Reported Medications Patient's medications list on EMR and is reviewed Allergies: Coded Allergies: *MDRO Multi-Drug Resistant Organism (Verified Adverse Reaction, Unknown, ) MRSA PCR screen POSITIVE 09/14/16 Family History mother had heart problems Social History used to smoke, quit 45yrs ago social drinker before no drugs Physical Exam Vital Signs Vital Signs Date Time Temp Pulse Resp B/P Pulse Ox O2 Delivery O2 Flow Rate FiO2 11/29/16 21:03 94 32 113/59 92 BiPAP 60 11/29/16 20:19 90 6 11/29/16 20:19 25 95 Nasal Cannula 6 11/29/16 20:04 104 25 90 Nasal Cannula 6 11/29/16 19:55 98.0 104 25 126/62 75 Physical Exam GENERAL: This is a well-nourished, well-developed patient, in moderate distress while on BiPAP. Noted to be having cough which actually sounded more of a congestion. SKIN: No rashes, ecchymoses or lesions. Cool and dry. HEAD: Atraumatic. Normocephalic. No temporal or scalp tenderness. EYES: No scleral icterus. No injection or drainage. ENT: Nose without bleeding, purulent drainage or septal hematoma Airway patent. NECK: Trachea midline. No JVD . Cardiovascular: Regular rate and rhythm, no murmur appreciated. RESPIRATORY: Bilaterally congested sound with rales throughout. Somewhat limited exam due to BiPAP sounds as well. GASTROINTESTINAL: Abdomen soft, non-tender, nondistended. No guarding. MUSCULOSKELETAL: Extremities without clubbing, cyanosis. Bilateral lower extremity 3+ pitting edema. No calf asymmetry. NEUROLOGICAL: Awake and alert.Motor and sensory grossly within normal limits. Normal speech. Laboratory Laboratory Tests Test 11/29/16 11/29/16 20:15 20:45 White Blood Count 17.4 Red Blood Count 4.06 Hemoglobin 10.0 Hematocrit 32.2 Mean Corpuscular Volume 79.3 Mean Corpuscular Hemoglobin 24.7 Mean Corpuscular Hemoglobin 31.2 Concent Red Cell Distribution Width 17.1 Platelet Count 422 Mean Platelet Volume 7.3 Neutrophils (%) (Auto) 90.4 Lymphocytes (%) (Auto) 4.1 Monocytes (%) (Auto) 4.9 Eosinophils (%) (Auto) 0.2 Basophils (%) (Auto) 0.4 Neutrophils # (Auto) 15.7 Lymphocytes # (Auto) 0.7 Monocytes # (Auto) 0.9 Eosinophils # (Auto) 0.0 Basophils # (Auto) 0.1 CBC Comment DIFF FINAL Differential Comment Sodium Level 134 Potassium Level 4.3 Chloride Level 97 Carbon Dioxide Level 28.3 Anion Gap 9 Blood Urea Nitrogen 11 Creatinine 0.56 Estimat Glomerular Filtration 138 Rate Random Glucose 143 Calcium Level 8.4 B-Type Natriuretic Peptide 591 Blood Gas Puncture Site RT RADIAL Blood Gas Patient Temperature 98.6 Blood Gas HCO3 27 Blood Gas Base Excess 3.4 Blood Gas Oxygen Saturation 95 Arterial Blood pH 7.44 Arterial Blood Partial 41 Pressure CO2 Arterial Blood Partial 86 Pressure O2 Arterial Blood Oxygen Content 12.9 Arterial Blood 1.5 Carboxyhemoglobin Arterial Blood Methemoglobin 0.2 Blood Gas Hemoglobin 9.6 Oxygen Delivery Device BIPAP Blood Gas Ventilator Setting IPAP12/EPAP6 Blood Gas Inspired Oxygen 60 Result Diagram: 11/29/16201411/29/162014 Imaging Last 48 hours Impressions Chest X-Ray 11/29/161958 Signed Impressions: Service Date/Time: Tuesday, November 29, 2016 19:56 - CONCLUSION: Worsening infiltrates in the right lower lung and improving infiltrates in the left lower lobe. Larry Maldonado MD Assessment and Plan Assessment and Plan Impression: dyspnea , acute on chronic - multifactorial. Pneumonia, mild acute on chronic systolic heart failure. acute on chronic systolic heart failure possible pneumonia diarrhea-likely C. difficile COPD CADstatus post cardiac stent, CABG Atrial fibrillation Hyperlipidemia Plan: Admit patient to [facility]. Continue BiPAP. I have tried patient of BiPAP during conversation and it was noted that patient did have quite significant work of breathing off BiPAP. Diuresis with Lasix 40 mg IV every 12 hours. Input/output. I would hold off on antibiotics at this time. Send stool for C. difficile. Contact isolation. Was started on Flagyl/by mouth Vanco if C. difficile is positive. Resume rest of home medications DVT prophylaxiswith Lovenox. Code Status DNR. Patient has [facility] DNR papers in chart from the rehabilitation facility. Discussed Condition With Patient, ER physician, patient's nurse Physician Certification 2 Midnight Certification Type: Admission for Inpatient Services Order for Inpatient Services The services are ordered in accordance with Medicare regulations or non- Medicare payer requirements, as applicable. In the case of services not specified as inpatient-only, they are appropriately provided as inpatient services in accordance with the 2-midnight benchmark. Estimated LOS (days): 2 days is the estimated time the patient will need to remain in the hospital, assuming treatment plan goals are met and no additional complications. Post-Hospital Plan: SNF Freddy Ureña MD Nov 29, 2016 21:54
[2016-11-29] MEDS ORDERED: ALPRAZolam 0.5 MG TAB PO PRN (22:45)
[2016-11-30] VITALS (21 sets, daily range): BP systolic 94–126; BP diastolic 52–71; PULSE 78–117; RESP 22–40; TEMP 98–98.6; O2SAT 83–100
[2016-11-30 00:58] LABS: C. DIFF EPI 027 PRESUMPTIVE POSITIVE (NEGATIVE)
[2016-11-30 01:01] LABS: C. DIFF TOXIN PCR POSITIVE (NEGATIVE)
[2016-11-30] MEDS: metroNIDAZOLE 500 MG INJ 100 ML IV SCH ×4 (01:19→17:21)
[2016-11-30] MEDS: RESP: ALBUTEROL 2.5 MG/IPRATROPIUM 0.5 MG NEB (SCH) NEB ×3 (03:25→15:19)
[2016-11-30] MEDS ORDERED: CHLORHEXIDINE GLUCONATE 2 % 1 PACK (2 CLOTHS) TOP PRN (03:45)
[2016-11-30] MEDS ORDERED: MISCELLANEOUS NURSING INFORMATION XX SCH (03:45)
[2016-11-30] MEDS: CHLORHEXIDINE GLUCONATE 2 % 1 PACK (2 CLOTHS) TOP SCH (03:56)
[2016-11-30] MEDS: SUCRALFATE 1 GM TAB PO SCH ×2 (05:52→15:35)
[2016-11-30 07:08] LABS: AUTOMATED NEUTROPHIL # 8.1 TH/MM3 (1.8-7.7); HEMATOCRIT 28.9 % (39.0-51.0); HEMO FLAGS DIFF FINAL; LYMPH % 3.5 % (9.0-44.0); LYMPHOCYTE # 0.3 TH/MM3 (1.0-4.8); MEAN CELL VOLUME 78.3 FL (80.0-100.0); MEAN CORPUSCULAR HEMOGLOBIN 24.6 PG (27.0-34.0); MEAN CORPUSCULAR HGB CONC 31.4 % (32.0-36.0); NEUT % 94.5 % (16.0-70.0); PLATELET COUNT 369 TH/MM3 (150-450); RED CELL DISTRIBUTION WIDTH 17.5 % (11.6-17.2); WHITE BLOOD COUNT 8.6 TH/MM3 (4.0-11.0)
[2016-11-30 07:13] LABS: BICARBONATE 31.2 MEQ/L (21.0-32.0); POTASSIUM 4.1 MEQ/L (3.5-5.1)
--- NOTE | 2016-11-30 09:35 | HHI.PR ---
Subjective Remarks In bed, eating breakfast. he is noted desatting in mid 80s while eating. Patient however he feels somehow improved since yesterday. + Nonproductive cough. Has bilateral LE edema. No n/v/d/c. Denies fever or chills. Objective Vitals Vital Signs Date Time Temp Pulse Resp B/P Pulse Ox O2 Delivery O2 Flow Rate FiO2 11/30/16 08:13 98 Nasal Cannula 5.00 11/30/16 06:00 78 11/30/16 04:00 98.0 91 22 117/60 97 11/30/16 04:00 91 11/30/16 03:25 97 45 11/30/16 03:23 99 11/30/16 03:21 Bi-Pap 45 11/30/16 03:19 98.0 98 22 117/71 94 11/30/16 03:00 98 8.00 50 11/30/16 02:41 96 40 123/60 99 BiPAP 45 11/30/16 01:19 88 27 112/61 99 BiPAP 45 11/30/16 01:01 95 45 11/29/16 23:00 95 32 115/65 98 BiPAP 45 11/29/16 22:18 45 11/29/16 22:18 105 38 145/78 98 BiPAP 45 11/29/16 21:58 100 45 11/29/16 21:03 94 32 113/59 92 BiPAP 60 11/29/16 20:38 93 60 11/29/16 20:30 60 11/29/16 20:19 90 6 11/29/16 20:19 25 95 Nasal Cannula 6 11/29/16 20:04 104 25 90 Nasal Cannula 6 11/29/16 19:55 98.0 104 25 126/62 75 I/O 11/29/16 11/29/16 11/29/16 11/30/16 11/30/16 11/30/16 07:00 15:00 23:00 07:00 15:00 23:00 Intake Total 100 ml Output Total 500 ml Balance -400 ml Intake IV Total 100 ml Output Urine Total 500 ml Result Diagram: 11/30/16 0614 11/30/1614 Imaging Last Impressions Chest X-Ray 11/29/161958 Signed Impressions: Service Date/Time: [place], November 29, 2016 19:56 - CONCLUSION: Worsening infiltrates in the right lower lung and improving infiltrates in the left lower lobe. Larry Maldonado MD Objective Remarks GENERAL: Elderly frail male, well-nourished, well-developed patient, in moderate distress while on BiPAP. Cardiovascular: Regular rate and rhythm, no murmur appreciated. RESPIRATORY: + Cough. Bilaterally congested sound with rales throughout. Somewhat limited exam due to BiPAP sounds as well. GASTROINTESTINAL: Abdomen soft, non-tender, nondistended. No guarding. MUSCULOSKELETAL: Extremities without clubbing, cyanosis. Bilateral lower extremity 3+ pitting edema. No calf asymmetry. NEUROLOGICAL: Awake and alert.Motor and sensory grossly within normal limits. Normal speech. A/P Assessment and Plan Dyspnea, acute on chronic - multifactorial. Pneumonia, mild acute on chronic systolic heart failure. Acute on chronic systolic heart failure Possible pneumonia Diarrhea-likely C. difficile COPD CADstatus post cardiac stent, CABG Atrial fibrillation Hyperlipidemia Plan: Admit patient to [facility]. Continue BiPAP, wean off as tolerated Diuresis with Lasix 40 mg IV every 12 hours. Monitor Input/output. Will hold off on antibiotics at this time as patient likely wit CHF exacerbation. Send stool for C. difficile. Contact isolation. Was started on Flagyl/by mouth Vanco if C. difficile is positive. Continue home medications as appropriate. DVT prophylaxiswith Lovenox. Code Status DNR. [facility] has [facility] DNR papers in chart from the rehabilitation facility. Discussed Condition With Patient, nurse Soo Cummings MD Nov 30, 2016 09:35
[2016-11-30] MEDS: ZINC SULFATE 220 MG CAP PO SCH (09:46)
[2016-11-30] MEDS: SERTRALINE HCL 100 MG TAB PO SCH (09:46)
[2016-11-30] MEDS: ASCORBIC ACID 500 MG TAB PO SCH ×2 (09:46→22:23)
[2016-11-30] MEDS: PANTOPRAZOLE SOD 40 MG DELAYED RELEASE TAB PO SCH (09:46)
[2016-11-30] MEDS: LISINOPRIL 5 MG TAB PO SCH (09:46)
[2016-11-30] MEDS: POTASSIUM CHLORIDE 10 MEQ CAP PO SCH (09:46)
[2016-11-30] MEDS: FUROSEMIDE 40 MG/4 ML VIAL IV PUSH SCH ×2 (09:47→17:21)
[2016-11-30] MEDS: SODIUM CHLORIDE 0.9% FLUSH 10 ML FLUSH IV FLUSH SCH ×2 (09:47→21:00)
[2016-11-30] MEDS: VANCOMYCIN 500 MG VIAL (FOR ORAL USE ONLY) PO SCH ×4 (09:47→22:23)
[2016-11-30] MEDS: CHOLESTYRAMINE 4 GM PACKET PO SCH ×3 (09:47→17:21)
[2016-11-30] MEDS: ENOXAPARIN SODIUM 40 MG/0.4 ML SYRINGE SQ SCH (09:48)
--- NOTE | 2016-11-30 13:45 | EKG ---
Date Performed: 11/29/2016 Time Performed: 20:23:06 PTAGE: 86 years EKG: ATRIAL FIBRILLATION WITH RAPID VENTRICULAR RESPONSE NONSPECIFIC T-WAVE ABNORMALITY Since pr evious tracing, no significant change noted ABNORMAL RHYTHM ECG PREVIOUS TRACING : 11/01/2016 14.37 DOCTOR: Matt Corona Interpretating Date/Time 11/30/2016 13:43:37
[2016-11-30 18:55] LABS: TRANSFERRIN IRON PROFILE 168 MG/DL (200-360)
[2016-11-30 19:20] LABS: FERRITIN 137 NG/ML (26-388)
[2016-11-30] MEDS: ATORVASTATIN 40 MG TAB PO SCH (22:22)
[2016-12-01] VITALS (22 sets, daily range): BP systolic 101–136; BP diastolic 41–86; PULSE 74–92; RESP 16–22; TEMP 97.4–98.9; O2SAT 96–98
[2016-12-01] MEDS: metroNIDAZOLE 500 MG INJ 100 ML IV SCH ×4 (00:48→17:24)
[2016-12-01] MEDS: RESP: ALBUTEROL 2.5 MG/IPRATROPIUM 0.5 MG NEB (SCH) NEB ×4 (03:42→20:24)
[2016-12-01] MEDS: CHLORHEXIDINE GLUCONATE 2 % 1 PACK (2 CLOTHS) TOP SCH (04:00)
[2016-12-01 05:47] LABS: AUTOMATED NEUTROPHIL # 6.7 TH/MM3 (1.8-7.7); BASOPHIL % 0.2 % (0.0-2.0); EOSINOPHIL # 0.1 TH/MM3 (0-0.4); EOSINOPHIL % 0.8 % (0.0-4.0); HEMATOCRIT 26.8 % (39.0-51.0); HEMO FLAGS DIFF FINAL; LYMPH % 11.5 % (9.0-44.0); MEAN CELL VOLUME 77.4 FL (80.0-100.0); MEAN CORPUSCULAR HEMOGLOBIN 25.6 PG (27.0-34.0); MEAN CORPUSCULAR HGB CONC 33.1 % (32.0-36.0); MONO % 10.3 % (0.0-8.0); NEUT % 77.2 % (16.0-70.0); PLATELET COUNT 365 TH/MM3 (150-450); RED BLOOD COUNT 3.47 MIL/MM3 (4.50-5.90); RED CELL DISTRIBUTION WIDTH 17.5 % (11.6-17.2); WHITE BLOOD COUNT 8.7 TH/MM3 (4.0-11.0)
[2016-12-01 06:14] LABS: BICARBONATE 32.5 MEQ/L (21.0-32.0); MAGNESIUM 1.9 MG/DL (1.5-2.5); POTASSIUM 3.9 MEQ/L (3.5-5.1)
[2016-12-01] MEDS: SUCRALFATE 1 GM TAB PO SCH ×2 (06:14→17:24)
[2016-12-01] MEDS: SODIUM CHLORIDE 0.9% FLUSH 10 ML FLUSH IV FLUSH SCH ×2 (09:00→21:22)
--- NOTE | 2016-12-01 09:02 | HHI.PR ---
Subjective Remarks At the margin of the bed sattign well on 3L NC. Says she is eating well, has a good appetite. Had diarrhea but not able to specify number of stools. No fever ro chills Not coughing. Denies any chest pain or sob. He has no abdominal pain at this time. Objective Vitals Vital Signs Date Time Temp Pulse Resp B/P Pulse Ox O2 Delivery O2 Flow Rate FiO2 12/01/16 08:56 98 Nasal Cannula 3.00 12/01/16 06:00 79 12/01/16 05:00 80 12/01/16 04:07 98.0 81 20 106/62 98 12/01/16 04:05 81 12/01/16 04:00 98 Nasal Cannula 3.00 12/01/16 03:46 98 Nasal Cannula 3.00 12/01/16 03:00 80 12/01/16 02:00 80 12/01/16 01:00 80 12/01/16 00:00 86 12/01/16 00:00 97 Nasal Cannula 4.00 12/01/16 00:00 97.9 74 22 101/55 97 11/30/16 23:00 86 11/30/16 22:00 80 11/30/16 21:00 88 11/30/16 20:00 80 11/30/16 20:00 98.4 84 22 100/52 97 11/30/16 20:00 97 Nasal Cannula 4.00 11/30/16 19:00 84 11/30/16 18:00 84 11/30/16 16:00 98.2 85 28 98/54 96 11/30/16 16:00 85 11/30/16 14:00 95 11/30/16 12:00 98.6 88 38 94/53 83 11/30/16 12:00 88 11/30/16 10:00 117 I/O 11/30/16 11/30/16 11/30/16 12/01/16 12/01/16 12/01/16 07:00 15:00 23:00 07:00 15:00 23:00 Intake Total 100 ml 975 ml 390 ml 440 ml Output Total 500 ml 850 ml 375 ml 550 ml Balance -400 ml 125 ml 15 ml -110 ml Intake Oral 550 ml 240 ml 240 ml IV Total 100 ml 425 ml 150 ml 200 ml Output Urine Total 500 ml 850 ml 375 ml 550 ml Result Diagram: 12/01/16 0510 12/01/16 0510 Imaging Last Impressions Chest X-Ray 11/29/161958 Signed Impressions: Service Date/Time: Tuesday, November 29, 2016 19:56 - CONCLUSION: Worsening infiltrates in the right lower lung and improving infiltrates in the left lower lobe. Larry Maldonado MD Objective Remarks GENERAL: Elderly frail male, well-nourished, well-developed patient, in moderate distress while on BiPAP. Cardiovascular: Regular rate and rhythm, no murmur appreciated. RESPIRATORY: + Cough. Bilaterally congested sound with rales throughout. Somewhat limited exam due to BiPAP sounds as well. GASTROINTESTINAL: Abdomen soft, non-tender, nondistended. No guarding. MUSCULOSKELETAL: Extremities without clubbing, cyanosis. Bilateral lower extremity 3+ pitting edema. No calf asymmetry. NEUROLOGICAL: Awake and alert.Motor and sensory grossly within normal limits. Normal speech. A/P Assessment and Plan Dyspnea, acute on chronic - multifactorial. Pneumonia, mild acute on chronic systolic heart failure. Acute on chronic systolic heart failure Possible pneumonia Diarrhea-patient with C. difficile 027 strain. Will consult ID for recommendations. COPD CADstatus post cardiac stent, CABG Atrial fibrillation Hyperlipidemia Plan: Admit patient to [facility]. Continue BiPAP, wean off as tolerated Diuresis with Lasix 40 mg IV every 12 hours. Monitor Input/output. Will hold off on antibiotics at this time as patient likely wit CHF exacerbation. Stool for C. difficile positive. on falgyl and vanco po . Consult ID for indications at DC Contact isolation. Was started on Flagyl/by mouth Vanco C. difficile is positive. Consult PT recommends rehab Continue home medications as appropriate. DVT prophylaxiswith Lovenox. Code Status DNR. Patient has [facility] DNR papers in chart from the rehabilitation facility. Discussed Condition With Patient, nurse Soo Cummings MD Dec 01, 2016 09:02
[2016-12-01] MEDS: LACTOBACILLUS ACIDOPHILUS TAB PO SCH ×2 (09:15→21:22)
[2016-12-01] MEDS: ENOXAPARIN SODIUM 40 MG/0.4 ML SYRINGE SQ SCH (09:44)
[2016-12-01] MEDS: PANTOPRAZOLE SOD 40 MG DELAYED RELEASE TAB PO SCH (09:45)
[2016-12-01] MEDS: LISINOPRIL 5 MG TAB PO SCH (09:45)
[2016-12-01] MEDS: ZINC SULFATE 220 MG CAP PO SCH (09:45)
[2016-12-01] MEDS: SERTRALINE HCL 100 MG TAB PO SCH (09:45)
[2016-12-01] MEDS: CHOLESTYRAMINE 4 GM PACKET PO SCH ×3 (09:45→17:24)
[2016-12-01] MEDS: ASCORBIC ACID 500 MG TAB PO SCH ×2 (09:45→21:22)
[2016-12-01] MEDS: POTASSIUM CHLORIDE 10 MEQ CAP PO SCH (09:45)
[2016-12-01] MEDS: FUROSEMIDE 40 MG/4 ML VIAL IV PUSH SCH ×2 (09:46→17:25)
[2016-12-01] MEDS: VANCOMYCIN 500 MG VIAL (FOR ORAL USE ONLY) PO SCH ×4 (09:46→21:22)
[2016-12-01] MEDS ORDERED: ALPR.5 PO (10:52)
[2016-12-01] MEDS: ATORVASTATIN 40 MG TAB PO SCH (21:22)
[2016-12-02] VITALS (20 sets, daily range): BP systolic 109–115; BP diastolic 48–65; PULSE 76–98; RESP 16–26; TEMP 97.4–98.1; O2SAT 95–98
[2016-12-02] MEDS: RESP: ALBUTEROL 2.5 MG/IPRATROPIUM 0.5 MG NEB (SCH) NEB ×4 (03:57→20:02)
[2016-12-02] MEDS: CHLORHEXIDINE GLUCONATE 2 % 1 PACK (2 CLOTHS) TOP SCH (04:00)
[2016-12-02] MEDS: metroNIDAZOLE 500 MG INJ 100 ML IV SCH ×4 (04:10→21:59)
[2016-12-02] MEDS: SUCRALFATE 1 GM TAB PO SCH ×2 (06:15→16:00)
[2016-12-02] MEDS: CHOLESTYRAMINE 4 GM PACKET PO SCH ×3 (08:00→17:00)
[2016-12-02] MEDS: FERROUS SULFATE 325 MG (65 MG ELEMENTAL IRON) TAB PO SCH (09:00)
[2016-12-02] MEDS: PANTOPRAZOLE SOD 40 MG DELAYED RELEASE TAB PO SCH (09:00)
[2016-12-02] MEDS: POTASSIUM CHLORIDE 10 MEQ CAP PO SCH (09:00)
[2016-12-02] MEDS: ASCORBIC ACID 500 MG TAB PO SCH ×2 (09:00→21:59)
[2016-12-02] MEDS: SODIUM CHLORIDE 0.9% FLUSH 10 ML FLUSH IV FLUSH SCH ×2 (09:00→11:39)
[2016-12-02] MEDS: LACTOBACILLUS ACIDOPHILUS TAB PO SCH ×2 (09:00→21:59)
[2016-12-02] MEDS: LISINOPRIL 5 MG TAB PO SCH (09:00)
[2016-12-02] MEDS: SERTRALINE HCL 100 MG TAB PO SCH (09:00)
[2016-12-02] MEDS: ZINC SULFATE 220 MG CAP PO SCH (09:00)
[2016-12-02] MEDS: VANCOMYCIN 500 MG VIAL (FOR ORAL USE ONLY) PO SCH ×4 (09:00→21:00)
--- NOTE | 2016-12-02 11:26 | HHI.PR ---
Subjective Remarks Failed swallow evaluation and he is NPO at this time. Patient is in the chair. Says she has no cough. He has no fevers or chills. He feels sob, however he feels improving somehow. No n/v/d/c. Denies chest pain. Objective Vitals Vital Signs Date Time Temp Pulse Resp B/P Pulse Ox O2 Delivery O2 Flow Rate FiO2 12/02/16 10:00 98 12/02/16 09:13 96 Nasal Cannula 3.00 12/02/16 08:00 88 12/02/16 08:00 97.4 81 18 109/63 97 12/02/16 07:00 Nasal Cannula 3.00 45 12/02/16 06:00 87 12/02/16 05:00 84 12/02/16 04:02 98.1 79 16 113/53 96 12/02/16 04:00 87 12/02/16 02:00 80 12/02/16 01:00 82 12/02/16 00:00 97.8 91 16 115/65 95 12/02/16 00:00 96 12/01/16 23:00 91 12/01/16 22:00 86 12/01/16 21:59 96 Nasal Cannula 3.00 12/01/16 21:00 92 12/01/16 20:24 98 Nasal Cannula 3.00 12/01/16 20:00 88 12/01/16 20:00 97.9 82 16 136/41 96 12/01/16 19:00 91 12/01/16 18:00 91 12/01/16 16:00 97.4 86 16 108/56 98 12/01/16 16:00 84 12/01/16 14:00 82 12/01/16 12:00 97.4 86 18 108/56 98 I/O 12/01/16 12/01/16 12/01/16 12/02/16 12/02/16 12/02/16 07:00 15:00 23:00 07:00 15:00 23:00 Intake Total 440 ml 650 ml 240 ml Output Total 550 ml 1800 ml 2900 ml Balance -110 ml -1150 ml -2660 ml Intake Oral 240 ml 450 ml 240 ml IV Total 200 ml 200 ml 0 ml Output Urine Total 550 ml 1800 ml 2900 ml # Bowel Movements 1 0 Result Diagram: 12/01/16 0510 12/01/16 0510 Imaging Last Impressions Chest X-Ray 11/29/161958 Signed Impressions: Service Date/Time: Tuesday, November 29, 2016 19:56 - CONCLUSION: Worsening infiltrates in the right lower lung and improving infiltrates in the left lower lobe. Larry Maldonado MD Objective Remarks GENERAL: Elderly frail male, well-nourished, well-developed patient, in moderate distress while on BiPAP. Cardiovascular: Regular rate and rhythm, no murmur appreciated. RESPIRATORY: + Cough. Bilaterally congested sound with rales throughout. Somewhat limited exam due to BiPAP sounds as well. GASTROINTESTINAL: Abdomen soft, non-tender, nondistended. No guarding. MUSCULOSKELETAL: Extremities without clubbing, cyanosis. Bilateral lower extremity 3+ pitting edema. No calf asymmetry. NEUROLOGICAL: Awake and alert.Motor and sensory grossly within normal limits. Normal speech. A/P Assessment and Plan Dyspnea, acute on chronic - multifactorial. Pneumonia, mild acute on chronic systolic heart failure. Acute on chronic systolic heart failure Possible pneumonia Diarrhea-patient with C. difficile 027 strain. Will consult ID for recommendations. COPD CADstatus post cardiac stent, CABG Atrial fibrillation Hyperlipidemia Dysphagia. Consult GI specialist. Will place temporarily feeding tube Dubhoff for feedings and also med administration. Patient however refusing Plan: Admit patient to [facility]. Continue BiPAP, wean off as tolerated Diuresis with Lasix 40 mg IV every 12 hours. Monitor Input/output. Will hold off on antibiotics at this time as patient likely wit CHF exacerbation. Stool for C. difficile positive. on falgyl and vanco po . Consult ID for indications at DC Contact isolation. Was started on Flagyl/by mouth Vanco C. difficile is positive. Consult PT recommends rehab Continue home medications as appropriate. DVT prophylaxiswith Lovenox. Code Status DNR. Patient has [facility] DNR papers in chart from the rehabilitation facility. Discussed Condition With Patient, nurse DC plan: Pending improvement. Patient also with dysphagia consult GI. Also consult palliative care for goals of care, as patient refusing NG tube. However he doesn want to see his GI Dr Thakur for evaluation Soo Cummings MD Dec 02, 2016 11:26
[2016-12-02] MEDS: FUROSEMIDE 40 MG/4 ML VIAL IV PUSH SCH ×2 (11:39→17:09)
[2016-12-02] MEDS: ENOXAPARIN SODIUM 40 MG/0.4 ML SYRINGE SQ SCH (11:40)
--- NOTE | 2016-12-02 15:31 | PD.CONS ---
Consult Service Palliative Care Consult Requested By Dr. Cummings . Primary Care Physician Moisés Sampson M.D. . Reason for Consultation a. To assist with evaluation and management of symptoms including: Dysphagia, dyspnea b. To assist medical decision maker(s) with: better understanding of current medical conditions; weighing benefits/burdens of medical treatment options; making medical treatment decisions. . HPI History of Present Illness This 86-year-old male, with a past history of CHF, COPD, CAD, atrial fibrillation, and recent GI bleeding with anemia requiring transfusion, was admitted because of dyspnea on 11/29/16. This was the fourth hospitalization in the past 11 weeks for this patient. He was admitted in mid August with GI bleeding and anemia, and was found to have an EF of about 40%. He went to a rehabilitation facility, was finally able to return to his [facility] with his , but within a couple days was admitted to the hospital again because of dyspnea. He was found to have COPD, CHF, and some pneumonia. He again went to a rehabilitation facility, eventually returning to his [facility], but again within a few days was back to the hospital because of dyspnea. He was admitted on because of CHF and a UTI. He was able to return to his [facility] for a short time , but became weaker, developed a cough, and became short of breath again, resulting in a return to the emergency department on 11/29/16. He also had had loose stools recently. In the emergency department, findings included: * Alert, dyspneic * Initial oxygen saturation in the 70s on 3 L * Temp 98.0, pulse 94, respirations 32, blood pressure 113/59 * The patient was placed on BiPAP, and his oxygen saturation came up into the 90s * White count 17.4, hemoglobin 10.0 * Sodium 134, creatinine 0.56 * Chest x-ray with infiltrates in the lower lung ji bilateral The patient was admitted, cultures were obtained, he was started on antibiotics , and also had some diuresis. His stool resulted in a positive test for C. difficile. The patient was quite weak, was having some coughing with trying to eat or drink, had a diminishing appetite, and then underwent a formal swallow evaluation on 12/01/16. He had evidence of aspiration; failed swallow eval. The patient refused a Dobbhoff tube, and Palliative Care was consulted (to assist with symptom management, and to enter into discussions with the patient and his spouse regarding the current illnesses, the prognosis, benefits and burdens of the various options. . Function/Cognitive Trajectory The patient was ambulatory until his admission in August of this year. Since then , he has essentially been confined to a wheelchair or bed. He has become progressively weaker and has lost at least 30 pounds in the past few months. He has a diminished appetite. . Review of Systems Constitutional: COMPLAINS OF: Fever, Weight loss Endocrine: DENIES: Polyuria Eyes: DENIES: Eye inflammation Ears, nose, mouth, throat: DENIES: Epistaxis Respiratory: COMPLAINS OF: Cough, Shortness of breath Cardiovascular: DENIES: Chest pain, Syncope Gastrointestinal: COMPLAINS OF: Black stools, Diarrhea, DENIES: Bloody stools , Vomiting, Vomiting blood Genitourinary: DENIES: Hematuria Musculoskeletal: DENIES: Joint pain, Back pain Integumentary: DENIES: Rash Hematologic/Lymphatics: DENIES: Bruising Immunologic/Allergic: DENIES: Eczema Neurologic: DENIES: Localized weakness, Seizures Psychiatric: DENIES: Confusion, Agitation Past Family Social History Coded Allergies: *MDRO Multi-Drug Resistant Organism (Verified Adverse Reaction, Unknown, ) MRSA PCR screen POSITIVE 09/14/16 Past Medical History * Pneumonia, probably aspiration * Dysphagia, profound weakness * COPD * Clostridium difficile enterocolitis * CHF * CADstatus post cardiac stent, CABG * Atrial fibrillation * Hyperlipidemia * Recent UTI * Hearing loss * Recent duodenal ulcer with GI bleeding . Past Surgical History CABG 3 vessels Coronary artery stent 2 Spinal fusion Left hip ORIF Right hip nailing January 2016 . Reported Medications Reported Meds & Active Scripts Active Xanax (Alprazolam) 0.5 Mg Tab 0.5 Mg PO Q6H PRN Lactinex (Lactobacillus Acidophilus) 1 Chew 1 Tab CHEW DAILY Cefuroxime (Cefuroxime Axetil) 500 Mg Tab 500 Mg PO BID Lisinopril 2.5 Mg Tab 2.5 Mg PO DAILY Protonix (Pantoprazole Sodium) 40 Mg Tab 40 Mg PO DAILY Duoneb (Ipratropium-Albuterol Neb) 0.5-2.5 Mg/3 Ml Neb 1 Ampule INH Q2HR NEB PRN Reported Dulcolax Supp (Bisacodyl) 10 Mg Supp 10 Mg RECTAL DAILY Culturelle (Lactobacillus Rhamnosus (GG)) 10 B Cell Cap 1.5 Cap PO DAILY Zinc Sulfate 220 Mg Tab 220 Mg PO DAILY Milk of Magnesia Liq (Magnesium Hydroxide) 400 Mg/5 Ml Susp 30 Ml PO DAILY PRN Omeprazole 20 Mg Cap 20 Mg DAILY Sucralfate 1 Gm Tab 1 Gm PO BID on empty stomach Cholestyramine 4 Gm/Dose Powd 4 Gm PO TID 1 level scoopful of powder contains 4 grams of cholestyramine. Vitamin C (Ascorbic Acid) 250 Mg Tab 500 Mg PO BID One Daily Complete (Multivitamin with Minerals) 1 Each Tablet Unknown Dose PO DAILY Tylenol (Acetaminophen) 325 Mg Tab 650 Mg PO Q4H PRN Potassium Chloride ER (Potassium Chloride) 10 Meq Cap 10 Meq PO DAILY Furosemide 20 Mg Tab 20 Mg PO DAILY Glucosamine Chondroitin (Hdcetfqxmag-Wqfspiwgsim-Iuc C-) 1 Cap Cap Sertraline (Sertraline HCl) 100 Mg Tab 100 Mg PO DAILY Atorvastatin (Atorvastatin Calcium) 40 Mg Tab 40 Mg PO HS . Current Medications Medications (Trade) Dose Ordered Sig/Manju Route Start Time Stop Time Status Last Admin (NS Flush) 2 ml UNSCH PRN IV FLUSH 11/29/16 21:15 (NS Flush) 2 ml BID IV FLUSH 11/30/16 09:00 12/02/16 11:39 (Narcan Inj) 0.4 mg UNSCH PRN IV 11/29/16 21:15 (Lasix Inj) 40 mg BID@09,18 IV PUSH 11/30/16 09:00 12/02/16 11:39 (Xanax) 0.5 mg Q6H PRN PO 11/29/16 22:45 (Lipitor) 40 mg HS PO 11/30/16 21:00 12/01/16 21:22 (Questran 4 Gm Pkt) 4 gm TIDAC PO 11/30/16 08:00 12/01/16 17:24 (Protonix) 40 mg DAILY PO 11/30/16 09:00 12/01/16 09:45 (KCl) 10 meq DAILY PO 11/30/16 09:00 12/01/16 09:45 (Zoloft) 100 mg DAILY PO 11/30/16 09:00 12/01/16 09:45 (Carafate) 1 gm BIDAC PO 11/30/16 07:00 12/02/16 06:15 (Zinc Sulfate) 220 mg DAILY PO 11/30/16 09:00 12/01/16 09:45 (Vitamin C) 500 mg BID PO 11/30/16 09:00 12/02/16 09:00 Lisinopril 2.5 mg 2.5 mg DAILY PO 11/30/16 09:00 12/01/16 09:45 (Flagyl 500 Mg Inj) 100 ml @ 100 mls/hr Q6H IV 11/30/16 01:00 12/02/16 11:39 (VANCOMYCIN for oral use only) 500 mg QID PO 11/30/16 09:00 12/01/16 21:22 Miscellaneous Information 1 Q361D XX 11/30/16 03:45 11/30/16 03:45 (Chlorhexidine 2% Cloth) 3 pack Taper DAILY@04 TOP 11/30/16 04:00 11/26/17 03:59 11/30/16 03:56 (Chlorhexidine 2% Cloth) 3 pack UNSCH PRN TOP 11/30/16 03:45 (Lovenox Inj) 40 mg Q24H SQ 11/30/16 09:00 12/02/16 11:40 (Ferrous Sulfate) 325 mg DAILY PO 12/02/16 09:00 Lactobacillus Acidophilus 1 tab 1 tab Q12HR PO 12/01/16 09:15 12/01/16 21:22 (Venofer Inj/NS Inj) 105 ml @ 105 mls/hr DAILY IV 12/03/16 09:00 12/05/16 09:59 Family History The patient's mother in her 70s of heart disease, and his father at age 84 of "old age." There is no history of diabetes. . Substance Use Tobacco: Quit smoking 1987 Alcohol: "Social drinker" but quit in the past few years Prescription med abuse: None Illicits: None . Psychosocial History The patient was born and raised in [place], [place]. He moved to [place] in 1998. 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 He has been twice, currently for 33 years. He had one son from his previous marriage, but describes him as "a bum," and he has had no contact with his son for many years. He has no desire to reconnect. The patient and his live in a condo until August of this year, and have been in the independent living portion of an [facility] since then. . Spiritual/Cultural Factors The patient describes himself as an atheist, but notes that his is [employer] and there are good friend is the acid regenerator from their [facility]. He welcomes visits from that [facility] acid regenerator. . Living Will: Completed, but not made available Health Care Surrogate: Completed, but not made available Durable Power of Power Equipment Technology Instructor: Never completed Health Care Surrogate(s): Spouse . Documented care wishes: The patient has a living will with typical verbiage . Today's verbally stated goals: The patient definitely wants to remain a DNR, and he does not desire placement of a tube for artificial nutrition. He and his both would like to meet with and talk to hospice representatives. . Family/friends goals: The patient's wants hospice services and supports the patient's choices. . Ethical and Legal Issues There are no ethical issues that would impact his care or decision-making at this time. The patient has capacity for decision-making. His would be his decision making proxy. . Physical Exam Vital Signs Date Time Temp Pulse Resp B/P Pulse Ox O2 Delivery O2 Flow Rate FiO2 12/02/16 14:38 80 12/02/16 12:00 97.4 79 18 110/60 98 12/02/16 10:00 98 12/02/16 09:13 96 Nasal Cannula 3.00 12/02/16 08:00 88 12/02/16 08:00 97.4 81 18 109/63 97 12/02/16 07:00 Nasal Cannula 3.00 45 12/02/16 06:00 87 12/02/16 05:00 84 12/02/16 04:02 98.1 79 16 113/53 96 12/02/16 04:00 87 12/02/16 02:00 80 12/02/16 01:00 82 12/02/16 00:00 97.8 91 16 115/65 95 12/02/16 00:00 96 12/01/16 23:00 91 12/01/16 22:00 86 12/01/16 21:59 96 Nasal Cannula 3.00 12/01/16 21:00 92 12/01/16 20:24 98 Nasal Cannula 3.00 12/01/16 20:00 88 12/01/16 20:00 97.9 82 16 136/41 96 12/01/16 19:00 91 12/01/16 18:00 91 12/01/16 16:00 97.4 86 16 108/56 98 12/01/16 16:00 84 12/01/16 12/02/16 18:59 06:59 Intake Total 650 ml 240 ml Output Total 1800 ml 2900 ml Balance -1150 ml -2660 ml Intake Oral 450 ml 240 ml IV Total 200 ml 0 ml Output Urine Total 1800 ml 2900 ml # Bowel Movements 1 0 Exam CONSTITUTIONAL/GENERAL: This is an elderly, thin patient, in no apparent distress. TUBES/LINES/DRAINS: Nasal oxygen, peripheral IV SKIN: No jaundice, rashes, or lesions. No wounds seen anteriorly. Skin temperature appropriate. Not diaphoretic. HEAD: Atraumatic. Normocephalic. EYES: Pupils equal and round and reactive. Extraocular motions intact. No scleral icterus. No injection or drainage. Fundi not examined. ENT: Somewhat decreased hearing. Nose without bleeding or purulent drainage. Throat without visible erythema, exudates, masses, or lesions. NECK: Trachea midline. Supple, nontender. No palpable thyroid enlargement or nodularity. CARDIOVASCULAR: Irregularly irregular rhythm without murmurs, gallops, or rubs. No JVD. Peripheral pulses symmetric. RESPIRATORY/CHEST: Symmetric, unlabored respirations. Scattered rales bilateral , a couple rhonchi. GASTROINTESTINAL: Abdomen soft, non-tender, nondistended. No hepato-splenomegaly , or palpable masses. No guarding. Bowel sounds present. GENITOURINARY: Without palpable bladder distension. MUSCULOSKELETAL: Extremities without clubbing or cyanosis, but there is 2+ pitting edema below both knees/feet. No joint tenderness or effusion noted. No calf tenderness. No mottling or clubbing. LYMPHATICS: No palpable cervical or supraclavicular adenopathy. NEUROLOGICAL: Awake and alert. Motor and sensory grossly within normal limits. Follows commands. Cognitively sharp. Moves all extremities. PSYCHIATRIC: No obvious anxiety/depression. no apparent hallucinations or other psychotic thought process. . Diagnostic Tests Laboratory Laboratory Tests Test 11/29/16 11/29/16 11/29/16 11/30/16 20:15 20:45 22:48 03:15 White Blood Count 17.4 TH/MM3 (4.0-11.0) Red Blood Count 4.06 MIL/MM3 (4.50-5.90) Hemoglobin 10.0 GM/DL (13.0-17.0) Hematocrit 32.2 % (39.0-51.0) Mean Corpuscular Volume 79.3 FL (80.0-100.0) Mean Corpuscular Hemoglobin 24.7 PG (27.0-34.0) Mean Corpuscular Hemoglobin 31.2 % Concent (32.0-36.0) Red Cell Distribution Width 17.1 % (11.6-17.2) Platelet Count 422 TH/MM3 (150-450) Mean Platelet Volume 7.3 FL (7.0-11.0) Neutrophils (%) (Auto) 90.4 % (16.0-70.0) Lymphocytes (%) (Auto) 4.1 % (9.0-44.0) Monocytes (%) (Auto) 4.9 % (0.0-8.0) Eosinophils (%) (Auto) 0.2 % (0.0-4.0) Basophils (%) (Auto) 0.4 % (0.0-2.0) Neutrophils # (Auto) 15.7 TH/MM3 (1.8-7.7) Lymphocytes # (Auto) 0.7 TH/MM3 (1.0-4.8) Monocytes # (Auto) 0.9 TH/MM3 (0-0.9) Eosinophils # (Auto) 0.0 TH/MM3 (0-0.4) Basophils # (Auto) 0.1 TH/MM3 (0-0.2) CBC Comment DIFF FINAL Differential Comment Sodium Level 134 MEQ/L (136-145) Potassium Level 4.3 MEQ/L (3.5-5.1) Chloride Level 97 MEQ/L (98-107) Carbon Dioxide Level 28.3 MEQ/L (21.0-32.0) Anion Gap 9 MEQ/L (5-15) Blood Urea Nitrogen 11 MG/DL (7-18) Creatinine 0.56 MG/DL (0.60-1.30) Estimat Glomerular Filtration 138 ML/MIN Rate (>89) Random Glucose 143 MG/DL (74-106) Calcium Level 8.4 MG/DL (8.5-10.1) B-Type Natriuretic Peptide 591 PG/ML (0-100) Blood Gas Puncture Site RT RADIAL Blood Gas Patient Temperature 98.6 Blood Gas HCO3 27 mmol/L (22-26) Blood Gas Base Excess 3.4 mmol/L (-2-2) Blood Gas Oxygen Saturation 95 % (90-100) Arterial Blood pH 7.44 (7.380-7.420) Arterial Blood Partial 41 mmHg (38-42) Pressure CO2 Arterial Blood Partial 86 mmHG Pressure O2 (61-120) Arterial Blood Oxygen Content 12.9 Vol % (12.0-20.0) Arterial Blood 1.5 % (0-4) Carboxyhemoglobin Arterial Blood Methemoglobin 0.2 % (0-2) Blood Gas Hemoglobin 9.6 G/DL (12.0-16.0) Oxygen Delivery Device BIPAP Blood Gas Ventilator Setting IPAP12/EPAP6 Blood Gas Inspired Oxygen 60 % Stool C. difficile Toxin (PCR) POSITIVE (NEGATIVE) Stl C. difficile Toxin PRESUMPTIVE Epiderm 027 POSITIVE (NEGATIVE) Nasal Screen MRSA (PCR) MRSA NOT DETECTED (NOT DETECT) Test 11/30/16 12/01/16 06:14 05:10 White Blood Count 8.6 TH/MM3 8.7 TH/MM3 (4.0-11.0) (4.0-11.0) Red Blood Count 3.70 MIL/MM3 3.47 MIL/MM3 (4.50-5.90) (4.50-5.90) Hemoglobin 9.1 GM/DL 8.9 GM/DL (13.0-17.0) (13.0-17.0) Hematocrit 28.9 % 26.8 % (39.0-51.0) (39.0-51.0) Mean Corpuscular Volume 78.3 FL 77.4 FL (80.0-100.0) (80.0-100.0) Mean Corpuscular Hemoglobin 24.6 PG 25.6 PG (27.0-34.0) (27.0-34.0) Mean Corpuscular Hemoglobin 31.4 % 33.1 % Concent (32.0-36.0) (32.0-36.0) Red Cell Distribution Width 17.5 % 17.5 % (11.6-17.2) (11.6-17.2) Platelet Count 369 TH/MM3 365 TH/MM3 (150-450) (150-450) Mean Platelet Volume 7.7 FL 7.9 FL (7.0-11.0) (7.0-11.0) Neutrophils (%) (Auto) 94.5 % 77.2 % (16.0-70.0) (16.0-70.0) Lymphocytes (%) (Auto) 3.5 % 11.5 % (9.0-44.0) (9.0-44.0) Monocytes (%) (Auto) 2.0 % (0.0-8.0) 10.3 % (0.0-8.0) Eosinophils (%) (Auto) 0.0 % (0.0-4.0) 0.8 % (0.0-4.0) Basophils (%) (Auto) 0.0 % (0.0-2.0) 0.2 % (0.0-2.0) Neutrophils # (Auto) 8.1 TH/MM3 6.7 TH/MM3 (1.8-7.7) (1.8-7.7) Lymphocytes # (Auto) 0.3 TH/MM3 1.0 TH/MM3 (1.0-4.8) (1.0-4.8) Monocytes # (Auto) 0.2 TH/MM3 0.9 TH/MM3 (0-0.9) (0-0.9) Eosinophils # (Auto) 0.0 TH/MM3 0.1 TH/MM3 (0-0.4) (0-0.4) Basophils # (Auto) 0.0 TH/MM3 0.0 TH/MM3 (0-0.2) (0-0.2) CBC Comment DIFF FINAL DIFF FINAL Differential Comment Sodium Level 136 MEQ/L 138 MEQ/L (136-145) (136-145) Potassium Level 4.1 MEQ/L 3.9 MEQ/L (3.5-5.1) (3.5-5.1) Chloride Level 98 MEQ/L 99 MEQ/L (98-107) (98-107) Carbon Dioxide Level 31.2 MEQ/L 32.5 MEQ/L (21.0-32.0) (21.0-32.0) Anion Gap 7 MEQ/L (5-15) 7 MEQ/L (5-15) Blood Urea Nitrogen 9 MG/DL (7-18) 14 MG/DL (7-18) Creatinine 0.53 MG/DL 0.57 MG/DL (0.60-1.30) (0.60-1.30) Estimat Glomerular Filtration 147 ML/MIN 136 ML/MIN Rate (>89) (>89) Random Glucose 146 MG/DL 87 MG/DL (74-106) (74-106) Calcium Level 8.4 MG/DL 8.4 MG/DL (8.5-10.1) (8.5-10.1) Iron Level 15 MCG/DL (65-175) Total Iron Binding Capacity 235 MCG/DL (250-450) Percent Iron Saturation 6.4 % (20-50) Ferritin 137 NG/ML (26-388) Vitamin B12 Level 1142 PG/ML (193-986) Folate 13.7 NG/ML (3.1-17.5) Magnesium Level 1.9 MG/DL (1.5-2.5) Result Diagram: 12/01/16 0510 12/01/16509 Imaging Last Impressions Chest X-Ray 11/29/161958 Signed Impressions: Service Date/Time: Tuesday, November 29, 2016 19:56 - CONCLUSION: Worsening infiltrates in the right lower lung and improving infiltrates in the left lower lobe. Larry Maldonado MD Procedures BiPAP in the emergency department . Patient/Family Conference Present at Family Conference: Silke, and [facility] acid regenerator . Family Conference Time (mins): 44 Family Conference Location: Bedside Issues Discussed: * Palliative care role, purpose, approach * Hospice care role, purpose, approach * Additional medical, psychosocial, and spiritual history * Patients general health, functional status, and cognitive changes in the months leading up to the current hospitalization * Patient/family understanding of the current medical problems * Patient/family understanding of prognosis * Patients goals of care as best understood from advance directives and/or conversations and/or values * Current medical treatment options and benefits/burdens of those options * Likely scenarios comparing ongoing aggressive care with a transition to comfort measures only * Questions answered to the best of my ability * Palliative care contact information provided The patient definitely wants to remain a DNR, and he does not desire placement of a tube for artificial nutrition. He and his both would like to meet with and talk to hospice representatives. . Assessment and Plan Disease Oriented Problem List: (1) pneumonia, probable aspiration (2) dysphagia, profound weakness (3) C. difficile enterocolitis (4) recent duodenal ulcer with GI bleeding and anemia (5) CHF (6) COPD (7) CAD, status post stents and CABG (8) atrial fibrillation (9) hearing deficit (10) recent UTI (11) hyperlipidemia Symptom Scale: (1) dysphagia 0-10 Scale: Unable to quantify (2) Dyspnea 0-10 Scale: 1 Pertinent Non-Medical Issues Psychosocial: Second marriage, one estranged son, retired "kitchen steward." Spiritual: The patient describes himself as an atheist, but notes that his is [employer] and there are good friend is the acid regenerator from their [facility]. He welcomes visits from that [facility] acid regenerator. Legal: The patient has capacity for decision-making. His would be his decision making proxy. Ethical issues impacting care: None . Important Contacts Spouse: Silke Velazquez: [phone] . Prognosis The patient's prognosis is poor. He has been declining for several months, losing weight, weaker. He has had now his fourth hospitalization, his profoundly weak, and has developed dysphagia with aspiration pneumonia. He is appropriate for hospice services. . Code Status: No Code Plan * DO NOT RESUSCITATE * DECISION-MAKING: The patient has capacity for decision-making. His would be his decision making proxy. * GOALS: The patient definitely wants to remain a DNR, and he does not desire placement of a tube for artificial nutrition. He and his both would like to meet with and talk to hospice representatives. * Hospice consult placed. * The patient understands that with hospice services, he could return to their home, try to eat or drink what he could tolerate, and the focus would stay on comfort until comes in the upcoming days or weeks. * SYMPTOMS: The patient has no significant pain. His dyspnea is being managed with treatment of his pneumonia and with supplemental oxygen. The dysphagia causes some coughing, and the patient has been made nothing by mouth. * Palliative Care will continue to follow the patient during this hospitalization. . Time Spent Total Floor Time (mins): 81 Face to Face Time (mins): 49 >50% Counseling/Coord of Care: Yes (d/w RN) Thank you for the opportunity to participate in the care of Mr. Velazquez. Attestation To help prompt me to consider important information that might be impacting today's encounter and assessment, information from prior notes written by myself or my colleagues may have been "brought forward" into today's note. My signature on this note, however, is an attestation that I personally performed the exam, history, and/or decision-making noted today, and, unless otherwise indicated, the interactions with patient, family, and staff as well as the review of records all occurred today. I also attest that the listed assessment and stated plan reflect my best clinical judgment today based on the combination of historical information, prior notes, and today's exam/ interactions. When time spent is documented, it refers only to time spent today by the signer, or if indicated, combined time spent today by collaborating physician/nurse practitioner. Shonda Hernandez MD Dec 02, 2016 15:31
[2016-12-02] MEDS: ATORVASTATIN 40 MG TAB PO SCH (21:59)
[2016-12-03] VITALS (11 sets, daily range): BP systolic 107–145; BP diastolic 60–72; PULSE 72–90; RESP 18–26; TEMP 96.9–98.3; O2SAT 96–97
[2016-12-03] MEDS: metroNIDAZOLE 500 MG INJ 100 ML IV SCH ×2 (02:00→06:41)
[2016-12-03] MEDS: RESP: ALBUTEROL 2.5 MG/IPRATROPIUM 0.5 MG NEB (SCH) NEB ×2 (03:34→07:14)
[2016-12-03] MEDS: CHLORHEXIDINE GLUCONATE 2 % 1 PACK (2 CLOTHS) TOP SCH (04:00)
[2016-12-03 06:12] LABS: AUTOMATED NEUTROPHIL # 6.5 TH/MM3 (1.8-7.7); BASOPHIL % 0.1 % (0.0-2.0); EOSINOPHIL # 0.1 TH/MM3 (0-0.4); EOSINOPHIL % 1.8 % (0.0-4.0); HEMATOCRIT 30.7 % (39.0-51.0); HEMO FLAGS DIFF FINAL; LYMPH % 8.6 % (9.0-44.0); LYMPHOCYTE # 0.7 TH/MM3 (1.0-4.8); MEAN CELL VOLUME 77.9 FL (80.0-100.0); MEAN CORPUSCULAR HEMOGLOBIN 24.7 PG (27.0-34.0); MEAN CORPUSCULAR HGB CONC 31.7 % (32.0-36.0); MONO % 8.8 % (0.0-8.0); NEUT % 80.7 % (16.0-70.0); PLATELET COUNT 410 TH/MM3 (150-450); RED BLOOD COUNT 3.94 MIL/MM3 (4.50-5.90); RED CELL DISTRIBUTION WIDTH 17.5 % (11.6-17.2)
[2016-12-03 06:33] LABS: BICARBONATE 31.7 MEQ/L (21.0-32.0); MAGNESIUM 1.8 MG/DL (1.5-2.5); POTASSIUM 3.6 MEQ/L (3.5-5.1)
[2016-12-03] MEDS: SUCRALFATE 1 GM TAB PO SCH (06:41)
[2016-12-03] MEDS: CHOLESTYRAMINE 4 GM PACKET PO SCH ×2 (08:00→12:00)
[2016-12-03] MEDS: ENOXAPARIN SODIUM 40 MG/0.4 ML SYRINGE SQ SCH (09:00)
[2016-12-03] MEDS: FERROUS SULFATE 325 MG (65 MG ELEMENTAL IRON) TAB PO SCH (09:00)
[2016-12-03] MEDS: LISINOPRIL 5 MG TAB PO SCH (09:00)
[2016-12-03] MEDS: ASCORBIC ACID 500 MG TAB PO SCH (09:00)
[2016-12-03] MEDS: ZINC SULFATE 220 MG CAP PO SCH (09:00)
[2016-12-03] MEDS: FUROSEMIDE 40 MG/4 ML VIAL IV PUSH SCH (09:00)
[2016-12-03] MEDS: SODIUM CHLORIDE 0.9% FLUSH 10 ML FLUSH IV FLUSH SCH (09:00)
[2016-12-03] MEDS ORDERED: IRON SUCROSE INJ 100 MG in SODIUM CHLORIDE 0.9% INJ 100 ML IV SCH (09:00)
[2016-12-03] MEDS: POTASSIUM CHLORIDE 10 MEQ CAP PO SCH (09:00)
[2016-12-03] MEDS: SERTRALINE HCL 100 MG TAB PO SCH (09:00)
[2016-12-03] MEDS: VANCOMYCIN 500 MG VIAL (FOR ORAL USE ONLY) PO SCH (09:00)
[2016-12-03] MEDS: PANTOPRAZOLE SOD 40 MG DELAYED RELEASE TAB PO SCH (09:00)
[2016-12-03] MEDS: LACTOBACILLUS ACIDOPHILUS TAB PO SCH (09:00)
--- NOTE | 2016-12-03 09:03 | HHI.PR ---
Subjective Remarks In bed, appears in nad. Family at bedside. Patient says she wants to eat. Patient /family decided for hospice. Objective Vitals Vital Signs Date Time Temp Pulse Resp B/P Pulse Ox O2 Delivery O2 Flow Rate FiO2 12/03/16 08:00 90 12/03/16 08:00 97.7 90 18 107/64 96 12/03/16 07:15 97 Nasal Cannula 3.00 12/03/16 07:00 Nasal Cannula 3.00 45 12/03/16 07:00 77 12/03/16 04:00 96.9 83 26 127/70 96 12/03/16 01:00 80 12/03/16 00:00 73 12/03/16 00:00 97.2 79 26 97 120/60 12/02/16 23:00 76 12/02/16 22:00 84 12/02/16 21:00 88 12/02/16 20:00 96 Nasal Cannula 3.00 12/02/16 20:00 82 12/02/16 20:00 97.4 80 26 111/48 96 12/02/16 19:00 76 12/02/16 18:11 96 12/02/16 17:19 97 Nasal Cannula 3.00 12/02/16 16:45 88 12/02/16 14:38 80 12/02/16 12:00 97.4 79 18 110/60 98 12/02/16 10:00 98 12/02/16 09:13 96 Nasal Cannula 3.00 I/O 12/02/16 12/02/16 12/02/16 12/03/16 12/03/16 12/03/16 06:59 14:59 22:59 06:59 14:59 22:59 Intake Total 240 ml 0 ml 500 ml 0 ml Output Total 2900 ml 1500 ml 425 ml Balance -2660 ml -1500 ml 75 ml 0 ml Intake Oral 240 ml 0 ml 0 ml IV Total 0 ml 500 ml Output Urine Total 2900 ml 1500 ml 425 ml # Bowel Movements 0 Result Diagram: 12/03/16 0538 12/03/16 0538 Imaging Last Impressions Chest X-Ray 11/29/161958 Signed Impressions: Service Date/Time: Tuesday, November 29, 2016 19:56 - CONCLUSION: Worsening infiltrates in the right lower lung and improving infiltrates in the left lower lobe. Larry Maldonado MD Objective Remarks GENERAL: Elderly frail male, well-nourished, well-developed patient, in moderate distress while on BiPAP. Cardiovascular: Regular rate and rhythm, no murmur appreciated. RESPIRATORY: + Cough. Bilaterally congested sound with rales throughout. Somewhat limited exam due to BiPAP sounds as well. GASTROINTESTINAL: Abdomen soft, non-tender, nondistended. No guarding. MUSCULOSKELETAL: Extremities without clubbing, cyanosis. Bilateral lower extremity 3+ pitting edema. No calf asymmetry. NEUROLOGICAL: Awake and alert.Motor and sensory grossly within normal limits. Normal speech. A/P Assessment and Plan Dyspnea, acute on chronic - multifactorial. Pneumonia, mild acute on chronic systolic heart failure. Acute on chronic systolic heart failure Possible pneumonia Diarrhea-patient with C. difficile 027 strain. Will consult ID for recommendations. COPD CADstatus post cardiac stent, CABG Atrial fibrillation Hyperlipidemia Dysphagia. Consult GI specialist. Will place temporarily feeding tube Dubhoff for feedings and also med administration. Patient however refusing Plan: Admit patient to [facility]. Continue BiPAP, wean off as tolerated Diuresis with Lasix 40 mg IV every 12 hours. Monitor Input/output. Will hold off on antibiotics at this time as patient likely wit CHF exacerbation. Stool for C. difficile positive. on falgyl and vanco po . Consult ID for indications at DC Contact isolation. Was started on Flagyl/by mouth Vanco C. difficile is positive. Consult PT recommends rehab Continue home medications as appropriate. DVT prophylaxiswith Lovenox. Code Status DNR. Patient has [facility] DNR papers in chart from the rehabilitation facility. Discussed Condition With Patient, nurse DC plan: Pending improvement. Patient also with dysphagia consult GI. Also consult palliative care for goals of care, as patient refusing NG tube. Seen by palliative care patient and family wants hospice. Soo Cummings MD Dec 03, 2016 09:03
--- NOTE | 2016-12-03 10:39 | HHI.DS ---
Discharge Summary Admission Date Nov 29, 2016 at 21:16 Discharge Date: Dec 03, 2016 Admitting Diagnosis acute respiratory distress, pneumonia, CHF (1) Dysphagia ICD Code: R13.10 Diagnosis: Principal (2) C. difficile enterocolitis Diagnosis: Principal (3) CHF Diagnosis: Secondary (4) COPD Diagnosis: Secondary (5) Severe anemia ICD Code: D64.9 Diagnosis: Secondary Procedures none Brief History - From Admission History from patient, ER physician communication, and review of medical records. Patient states that he wasn't happy with the rehabilitation facility that he lives. He believes that they were not doing anything for him. He states that he has been short of breath which is his baseline. He said he told his to call for 911 for him mostly because he was having diarrhea. He reports he "pooped in pants". States he has been "sweating like mad" Again, regarding his shortness of breath, he states he is always short of breath and he might have been just worsened a little bit. Denies fever. Denies coughing more than his usual as well. He states he was not really able to bring up sputum. When he did, it was yellow in color. Denies nausea/vomiting/urinary burning or pain on urination. Next and reports that his diarrhea was at least 3 or 4 times a day. Yellow or green color. Smells worse than his normal. Reports a prior history of C. difficile. Patient was also hospital most recently and was receiving antibiotics then. Today as well, in the emergency room, patient received Rocephin, azithromycin. Patient reports that he has mostly been in wheel chair at the rehabilitation facility. He did take part in physical therapy at times. Reports of peripheral edema which limits his ambulatory status. He is not sure about taking diuretics. He is not sure what kind of medications he has been on. Denies any black color stool or red color stool. Denies chest pain/syncopal episodes. Denies dizziness at times and nothing significant the different from his baseline. CBC/BMP: 12/03/16 0538 12/03/16 0538 Significant Findings Laboratory Tests Test 12/01/16 12/03/16 05:10 05:38 Red Blood Count 3.47 MIL/MM3 3.94 MIL/MM3 (4.50-5.90) (4.50-5.90) Hemoglobin 8.9 GM/DL 9.7 GM/DL (13.0-17.0) (13.0-17.0) Hematocrit 26.8 % 30.7 % (39.0-51.0) (39.0-51.0) Mean Corpuscular Volume 77.4 FL 77.9 FL (80.0-100.0) (80.0-100.0) Mean Corpuscular Hemoglobin 25.6 PG 24.7 PG (27.0-34.0) (27.0-34.0) Red Cell Distribution Width 17.5 % 17.5 % (11.6-17.2) (11.6-17.2) Neutrophils (%) (Auto) 77.2 % 80.7 % (16.0-70.0) (16.0-70.0) Monocytes (%) (Auto) 10.3 % 8.8 % (0.0-8.0) (0.0-8.0) Carbon Dioxide Level 32.5 MEQ/L (21.0-32.0) Creatinine 0.57 MG/DL 0.42 MG/DL (0.60-1.30) (0.60-1.30) Calcium Level 8.4 MG/DL 8.2 MG/DL (8.5-10.1) (8.5-10.1) Mean Corpuscular Hemoglobin 31.7 % Concent (32.0-36.0) Lymphocytes (%) (Auto) 8.6 % (9.0-44.0) Lymphocytes # (Auto) 0.7 TH/MM3 (1.0-4.8) Chloride Level 96 MEQ/L (98-107) Imaging Last Impressions Chest X-Ray 11/29/161958 Signed Impressions: Service Date/Time: Tuesday, November 29, 2016 19:56 - CONCLUSION: Worsening infiltrates in the right lower lung and improving infiltrates in the left lower lobe. Larry Maldonado MD PE at Discharge GENERAL: Elderly frail male, well-nourished, well-developed patient, in moderate distress while on BiPAP. Cardiovascular: Regular rate and rhythm, no murmur appreciated. RESPIRATORY: + Cough. Bilaterally congested sound with rales throughout. Somewhat limited exam due to BiPAP sounds as well. GASTROINTESTINAL: Abdomen soft, non-tender, nondistended. No guarding. MUSCULOSKELETAL: Extremities without clubbing, cyanosis. Bilateral lower extremity 3+ pitting edema. No calf asymmetry. NEUROLOGICAL: Awake and alert.Motor and sensory grossly within normal limits. Normal speech. Hospital Course 86 yo male with multiple medical problems came form SNF with complaints of worsening sob and also diarrhea. Patient with PNA, mild chronic systolic CHF. Also with C diff colitis. Patient is also not able to swallow. He is refusing NG tube or PEG tube placement. Also says he can't do the exercises given by ST. GI also consulted for recommendations. Palliative care also consulted as patient refusing any procedures and is NPO. He wants to eat. Patient is DNR. Patient and family decided for hospice.. patient was discharged to hospice in deteriorating condition. Dyspnea, acute on chronic - multifactorial. Pneumonia, mild acute on chronic systolic heart failure. Acute on chronic systolic heart failure Possible pneumonia Diarrhea-patient with C. difficile 027 strain. Will consult ID for recommendations. COPD CADstatus post cardiac stent, CABG Atrial fibrillation Hyperlipidemia Dysphagia. Consult GI specialist. Will place temporarily feeding tube Dubhoff for feedings and also med administration. Patient however refusing. patient denies any meds. and he wants to go hospice. Plan: Admit patient to [facility]. Continue BiPAP, wean off as tolerated Diuresis with Lasix 40 mg IV every 12 hours. Monitor Input/output. Will hold off on antibiotics at this time as patient likely wit CHF exacerbation. Stool for C. difficile positive. on falgyl and vanco po . Consult ID for indications at DC Contact isolation. Was started on Flagyl/by mouth Vanco C. difficile is positive. Consult PT recommends rehab Continue home medications as appropriate. DVT prophylaxiswith Lovenox. Code Status DNR. Patient has [facility] DNR papers in chart from the rehabilitation facility. Discussed Condition With Patient, nurse DC plan: Pending improvement. Patient also with dysphagia consult GI. Also consult palliative care for goals of care, as patient refusing NG tube. Seen by palliative care, patient and family wants hospice. DC to hospice. Pt Condition on Discharge: Deteriorating Discharge Disposition: Hospice/Med Facility Discharge Time: > 30 minutes Discharge Instructions DIET: Follow Instructions for: Heart Healthy Diet Speech Therapy-Diet Recommends: Other Additional Diet Instructions: ST recommends NPO Activities you can perform: Regular-No Restrictions Follow up Referrals: PCP Follow-up - 3-5 Days Continued Medications: Acetaminophen (Tylenol) 325 Mg Tab 650 MG PO Q4H PRN PAIN SCALE 1 TO 10 Ref 0 TAB Alprazolam (Xanax) 0.5 Mg Tab 0.5 MG PO Q6H PRN ANXIETY #10 Ref 0 TAB (This prescription has been renewed) Ascorbic Acid (Vitamin C) 250 Mg Tab 500 MG PO BID Nutritional Supplement Ref 0 TAB Atorvastatin (Atorvastatin) 40 Mg Tab 40 MG PO HS Cholesterol Management Ref 0 TAB Bisacodyl Supp (Dulcolax Supp) 10 Mg Supp 10 MG RECTAL DAILY if no bm in 3 days #12 Ref 0 SUPP Cholestyramine (Cholestyramine) 4 Gm/Dose Powd 4 GM PO TID 1 level scoopful of powder contains 4 grams of cholestyramine. Dyslipidemia #1 Ref 0 CAN Furosemide (Furosemide) 20 Mg Tab 20 MG PO DAILY #30 Ref 0 TAB Hsswpliefzw-Okycmtvwkgi-Dou C- (Glucosamine Chondroitin) 1 Cap Cap Ipratropium-Albuterol Neb (Duoneb) 0.5-2.5 Mg/3 Ml Neb 1 AMPULE INH Q2HR NEB PRN WHEEZING #1 BOX Lactobacillus Acidophilus (Lactinex) 1 Chew 1 TAB CHEW DAILY Nutritional Supplement #30 Ref 0 TAB Lactobacillus Rhamnosus (GG) (Culturelle) 10 B Cell Cap 1.5 CAP PO DAILY Nutritional Supplement Ref 0 CAP Lisinopril (Lisinopril) 2.5 Mg Tab 2.5 MG PO DAILY #30 Ref 0 TAB Magnesium Hydroxide Liq (Milk of Magnesia Liq) 400 Mg/5 Ml Susp 30 ML PO DAILY PRN if no bm in 3 days #1 Ref 0 BOTTLE Multivitamin with Minerals (One Daily Complete) 1 Each Tablet Unknown Dose PO DAILY Omeprazole (Omeprazole) 20 Mg Cap 20 MG DAILY Pantoprazole (Protonix) 40 Mg Tab 40 MG PO DAILY Reflux #30 Ref 0 TAB Potassium Chloride ER (Potassium Chloride ER) 10 Meq Cap 10 MEQ PO DAILY Electrolyte Replacement #30 Ref 0 CAP Sertraline (Sertraline) 100 Mg Tab 100 MG PO DAILY #30 Ref 0 TAB Sucralfate (Sucralfate) 1 Gm Tab 1 GM PO BID on empty stomach Duodenal ulcer #120 Ref 0 TAB Zinc Sulfate (Zinc Sulfate) 220 Mg Tab 220 MG PO DAILY Nutritional Supplement Ref 0 TAB Discontinued Medications: Cefuroxime (Cefuroxime) 500 Mg Tab 500 MG PO BID Infection #20 Ref 0 TAB Soo Cummings MD Dec 03, 2016 10:39
--- NOTE | 2016-12-03 12:59 | PD.CONS ---
GI Consult GI Consult Thank you for the consultation, Full consult dictated ASSESSMENT/PLAN: 1. Dysphagia 2. Severe Pcm 3. C-diff PLAN: 1. Had a discussion with patient and . offered EGd with dilation and egd with peg they have decided on going to hospice care and he does not want any endoscopic procedures. 2. This is not an unreasonable decision. Pt had egd in august 2016 (did not show any pathology in esophagus) suspect majority of dysphagia likely due to neuromuscular issues rather than structural. 3. I would recommend consider an empiric trial of Nystatin 5 ml swish and swallow qid x 7 days. (for possible carrillo esophagitis; which can sometime cause oropharyngeal dysphagia. 4. thank you call for questions. will sign off. It was a pleasure seeing Jaydon Velazquez . Thank you for this consult. Entered by: Nuvia Mei MD Dec 03, 2016 12:59
--- NOTE | 2016-12-03 19:29 | MB ---
cc: JOHNNY DINH MD DATE OF CONSULTATION 12/03/16 1930 REASON FOR CONSULTATION Dysphagia, possible PEG tube placement. HISTORY OF PRESENT ILLNESS This is an 86-year-old gentleman who has a significant medical history of COPD, CHF, coronary artery disease, atrial fibrillation, recent GI bleeding with history of duodenal ulcers had been in and out of the hospital recently and was admitted to the rehab facility. He was having issues with difficulty breathing, dyspnea as well as began having diarrhea. Finally was brought into the hospital, was found to have C. difficile. He is also having coughing spells upon eating and, therefore, a swallow evaluation was performed showing significant amount of swallowing with all foods and therefore her per the speech therapist, he was recommended n.p.o. due to significant aspiration risk. GI was consulted for further evaluation, possible endoscopy and consideration of a PEG tube placement. PAST MEDICAL HISTORY 1. Congestive heart failure 2. Chronic obstructive pulmonary disease 3. Coronary artery disease 4. Atrial fibrillation PAST SURGICAL HISTORY 1. Coronary artery bypass graft 2. Coronary artery stent placement 3. Spinal fusion 4. Left hip surgery, 5. Right hip repair. MEDICATIONS Please see MAR for complete list. ALLERGIES None. FAMILY HISTORY No GI malignancy. SOCIAL HISTORY Distant smoking use, distant alcohol use. REVIEW OF SYSTEMS A 12 point review of systems was obtained by me and was negative and noncontributory except as mentioned in the HPI. PHYSICAL EXAMINATION Vital signs 98.3, 81, 18, 145/72. GENERAL: Alert, oriented in no acute distress. EYES: Pupils round, reactive to light. Oral mucosa is moist supple and nontender. NECK: No carotid bruits noted. No JVD noted. CARDIOVASCULAR: irregular rhythm. Irregular rate. RESPIRATORY: Non-labored breath sounds, bilateral wheezing and rales heard anteriorly and posteriorly. ABDOMEN: Soft, nontender, nondistended. Bowel sounds positive in all four quadrant. No hepatomegaly appreciated. LYMPH NODES: No lymphadenopathy noted. GENITOURINARY:: No CVA tenderness noted. EXTREMITIES: Reduced strength in upper and lower extremities, weakness. NEUROLOGIC: Complete exam not performed PSYCHIATRIC: Appropriate mood and affect. LABORATORY DATA WBC 8.0, hemoglobin 9.7, platelets of 410. C. difficile positive. IMPRESSION 1. Dysphagia wide differential diagnosis 2. Protein calorie malnutrition, severe 3. Likely occult aspiration. 4. C-difficile diarrhea. RECOMMENDATIONS I had a thorough discussion with the patient and his who is at bedside. The patient does not want to undergo any invasive procedures. He does not want endoscopy or dilation. He definitely does not want a feeding tube placement. He has undergone a recent endoscopy as early as June of this year which showed several shallow ulcerations in the duodenum and no clear pathology was found in the esophagus. Leading me to believe that his current dysphagia may be related to neuromuscular disorder which likely will not be abated with simple EGD with dilation. They have opted to proceed with palliative care and hospice care and, therefore, he does not wish to undergo any further invasive interventions. I explained all the risks and benefits and they are agreeable to not proceeding with any procedures at this time. We will hold off on any further procedure recommendations in regards to medical recommendations. Could consider trial of swish and swallow or swish and spit Nystatin 5 mL q.i.d. for one week to see if any dysphagia related issues that could be related to oral candidiasis or candidal esophagitis. Again, swallowing Nystatin could also increase the risk of aspiration, therefore, this is not optimal either. Otherwise, no further recommendations. We will stand by. Please call for issues or questions. MD RADHA Albarran/ /5:41 PM /7:09 PM
== END 2016-12-03 13:12 | disposition hospice, inpatient (51) | DRG 177 ==
LOC: NEPC 19:28 → NEDA 21:16 → HIMN 11-30 03:10 → HCIS 11-30 19:00
PROVIDERS: ADMIT Hospitalist; ATTEND Hospitalist
PROC: 5A09357 Assistance with Respiratory Ventilation, Less than 24 Consecutive Hours, Continuous Positive Airway Pressure (ICD-10-PCS; principal; 2016-11-29)
DX: J69.0 Pneumonitis due to inhalation of food and vomit (principal); E43 Unspecified severe protein-calorie malnutrition; I50.23 Acute on chronic systolic (congestive) heart failure; A04.7 Enterocolitis due to Clostridium difficile; B37.81 Candidal esophagitis; I48.91 Unspecified atrial fibrillation; J44.1 Chronic obstructive pulmonary disease with (acute) exacerbation; R13.10 Dysphagia, unspecified; Z99.81 Dependence on supplemental oxygen; N39.0 Urinary tract infection, site not specified; I11.0 Hypertensive heart disease with heart failure; I25.10 Atherosclerotic heart disease of native coronary artery without angina pectoris; E78.5 Hyperlipidemia, unspecified; K21.9 Gastro-esophageal reflux disease without esophagitis; R09.02 Hypoxemia; R06.82 Tachypnea, not elsewhere classified; H91.90 Unspecified hearing loss, unspecified ear; R13.12 Dysphagia, oropharyngeal phase; D64.9 Anemia, unspecified; Z51.5 Encounter for palliative care; Z66 Do not resuscitate; Z68.24 Body mass index [BMI] 24.0-24.9, adult; Z87.891 Personal history of nicotine dependence; Z95.1 Presence of aortocoronary bypass graft; Z95.5 Presence of coronary angioplasty implant and graft; Z98.1 Arthrodesis status
CPT/HCPCS: 36600; 71010; 80048; 82607; 82728; 82746; 82805; 83540; 83550; 83735; 83880; 84100; 85025; 87493; 87641; 93005; 94002; 94003; 94640; 94664; 96374; 96375; J0456; J0696; J1650; J1940; J2930; J7050; J7613